=== PATIENT | female | born 1955 | race Caucasian/White ===

== ENCOUNTER → 2018-08-09 08:39 | Outpatient (CLI) | payer OTHER, SELFPAY | PROVIDERS: Family Provider Family Medicine; PCP Family Medicine | DX: Z23 Encounter for immunization (principal) | CPT/HCPCS: 90471; 90686 ==

== ENCOUNTER → 2020-02-17 08:50 | Outpatient (CLI) | payer OTHER, SELFPAY ==
--- NOTE | 2020-02-17 | DI.MRI.S_ITS ---
PROCEDURE: MR LUMBAR SPINE WO CON INDICATIONS: LOW BACK PAIN TECHNIQUE: Noncontrast sagittal T1 spin echo and T2 fast echo, sagittal STIR, axial T1 and T2 fast spin echo through the lumbar spine. In cases with scoliosis, additional coronal T2 fast spin echo may be performed. COMPARISON: None. FINDINGS: Image quality: Excellent. Alignment and Curvature: Trace anterolisthesis of L4 on L5 Bone Marrow: Multilevel degenerative endplate sclerosis and spurring. Diffuse facet arthropathy. No discrete acute vertebral body compression fractures. Marked T2 hyperintensity present within the L1 and L2 vertebral bodies. There is suggestion of large hemangioma within the L1 vertebral body with internal trabeculations for example image 5/5. There is also prominent posterior osseous bridging of the L1 and L2 vertebral bodies, with corticated appearance suggestive of chronic finding. There is ill-defined T2 hyperintensity posterior to the L2 vertebral body, the etiology of which is unknown. Spinal Cord: Conus medullaris terminates at the L1-L2 level. Visualized cord demonstrates normal signal and size. 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 Paraspinous Soft Tissues: No paravertebral masses. Presumed prominent left paravertebral osteophyte formation an ill-defined signal change at the L1-L2 level L1-L2: Severe disc space narrowing, however no definite fluid signal intensity within the disc space. Severe canal stenosis, left greater than right. Complete effacement of the left lateral recess. Right lateral recess appears mildly effaced. Severe narrowing of the left foramen with nerve root compression. Moderate to severe narrowing of the right neural foramen with nerve root compression L2-L3: No high-grade canal stenosis. Moderate left foraminal stenosis with slight nerve root compression. Mild right foraminal narrowing.. L3-L4: No high-grade central canal stenosis. Lateral recesses appear patent. Mild right and left foraminal stenoses L4-L5: Mild canal narrowing. Lateral recess appear grossly patent. Mild bilateral foraminal stenoses L5-S1: No canal stenoses at their lateral recesses appear patent. No foraminal stenosis. IMPRESSION: Prominent L1-L2 disc degeneration with probable paravertebral osteophyte formation, and ossification of the posterior longitudinal ligament. This results in severe canal stenosis. Given the nonenhanced signal characteristics of the disc space and adjacent endplates, infectious or neoplastic etiologies are thought to be less likely however technically indeterminate in the absence of IV contrast. If clinically indicated, further evaluation with contrast-enhanced MRI could be performed. Probable hemangioma is noted within the L1 vertebral body. Severe bilateral L1-L2 foraminal stenoses. Moderate left L2-L3 foraminal stenosis Dictated by: Harshal Bello M.D. on 02/17/2020 at 12:37 Approved by: Harshal Bello M.D. on 02/17/2020 at 13:01
== END ==
PROVIDERS: Family Provider Family Medicine; PCP Family Medicine; Referring Provider Family Medicine; Visit Provider Family Medicine
DX: M54.5 Low back pain (principal); M51.36 Other intervertebral disc degeneration, lumbar region; M48.061 Spinal stenosis, lumbar region without neurogenic claudication
CPT/HCPCS: 72148

== ENCOUNTER 2020-02-18 14:11 | Inpatient (IN) | payer OTHER, SELFPAY ==
[2020-02-18 14:55] VITALS: BP 121/73; PULSE 97; RESP 16; TEMP 36.6; O2SAT 96
[2020-02-18 15:33] VITALS: BMI 24.0
[2020-02-18 15:52] LABS: Alanine Aminotransferase 38 IU/L (<35); Albumin 3.8 g/dL (3.5-5.0); Alkaline Phosphatase 102 U/L (38-126); Aspartate Aminotransferase 66 IU/L (14-36); BUN Creatinine Ratio 12.1 (6-22); Bilirubin Total 0.4 mg/dL (0.2-1.3); Blood Urea Nitrogen 8 mg/dL (7-17); Calcium 8.5 mg/dL (8.4-10.2); Carbon Dioxide 24 mmol/L (22-32); Chloride 89 mmol/L (98-107); Estimated Glomerular Filt Rate > 60.0 mL/min (>60); Glucose 136 mg/dL (80-110); HEMOLYSIS < 15 (0-50); Hematocrit 28.1 % (36-46); Hemoglobin 9.5 g/dL (12.0-16.0); Mean Corpuscular HGB Conc 33.9 % (30-36); Mean Corpuscular Hemoglobin 28.4 PG (26-34); Mean Corpuscular Volume 83.8 fL (80-100); Platelet Count 407 X10^3/uL (150-400); Potassium 3.6 mmol/L (3.4-5.1); Red Blood Cell Count 3.36 X10^6/uL (4.0-5.2); Red Cell Distribution Width 14.9 % (11.6-14.8); Sodium 128 mmol/L (137-145); Total Protein 7.8 g/dL (6.3-8.2); White Blood Cell Count 14.4 X10^3/uL (4.5-11.0)
[2020-02-18 15:55] LABS: Add Manual Diff / Slide Review YES
[2020-02-18 16:16] LABS: Neutrophils Absolute Manual 12816 /uL (3000-5900); RBC Morphology Normal Morphology; Total Cells Counted 100
[2020-02-18 16:17] LABS: Toxic Vacuolation Present
--- NOTE | 2020-02-18 16:23 | PC.NURSE ---
Pt direct admit for Dr. Escoto w/ back pain Pt A/O x 3. No SOB Pt states discomfort is lower right back - hip spasm like. HL (24g) inserted into the right wrist area w/o incidence. Pt oriented to room & call system. Call light w/in reach. Pt goes from bed -chair independently for comfort.
[2020-02-18] MEDS: CEFTRIAXONE 2 GM/50 ML FROZ.PIGGY IV (17:21)
--- NOTE | 2020-02-18 17:35 | PM.HP.1 ---
History of Present Illness History of Present Illness Date Patient Seen: 02/18/20 Time Patient Seen: 17:35 Date of Onset of Symptoms: 12/24/19 Chief complaint: epidural abscess,multiple myeloma Narrative: Patient is a 65-year-old white female who has been a longstanding patient of mine who presents with increasing back pain fever chills and history of elevated white count. Patient began having back pain and early December. She was seen for fever and placed on Levaquin. Patient had been actually doing quite well she was seen in mid December for recurrence symptoms still had back pain. Her back pain was always on the mid to left side. Seemed to be in SI joint. It been treated for that. No imaging was done. Patient was placed on Levaquin again for 2 weeks despite the fact that no source was noted by me. She had complete resolution of symptoms except for back pain. No fevers no chills or white count had decreased from 14-1926 and had remained in that position for 3 weeks. She had otherwise felt well. But was having continued back pain. She never had any weakness numbness or other change. All the pain was located in her left lateral hip with some radiation into the midline. She had no radiation to her buttocks. Pain seemed to be worse at night. Depending on which she do an it her daytime. She was unable to actually move except to log roll in the bed. During the day she seemed to be better. She had no numbness tingling no change in her bowels movements. No urinary issues. She otherwise had no changes she had went until recently was continuing to have back pain x-ray was negative and she had an MRI which showed a epidural L1 abscess. She was starting to have increasing fevers and was otherwise in moderate discomfort sometimes severe at night and it was elected to bring her into the hospital. Patient otherwise had no other significant changes Patient has had no cough or runny nose. She has had no shortness of breath no chest pain no headaches no visual symptoms. No ear pain. She has not had any abdominal pain. Although her appetite has been slightly decreased. No painful urination. No diarrhea. She otherwise is felt pretty well up until the last 2 days. Fever has been up to 102. Past medical history is significant for: History of hyponatremia Multiple myeloma Depression Vitamin B12 deficiency Migraine Hyperlipidemia Malignant neoplasm left breast 2016 History of anemia Past surgical history left stapedectomy 1989, left lumpectomy 2015 for breast cancer Family history: Father with heart disease is hypertension and COPD, mother depression and multiple myeloma, sister 54 breast cancer, Social history to Don. Children are supportive. 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 Habits: Never tobacco occasional alcohol Patient History Family & Social History Social History: household members spouse Prior Living Arrangements House Safety & Behavioral: Feels Safe in Current Yes Environment Been Physically Hurt or No Threatened By a Person Suicidal Ideation Description None Suicide Plan Description No Plan Tobacco & Substance use: Smoking Status Never smoker alcohol intake frequency holiday/special occasion Substance Use Type does not use Meds Home Medications and Allergies Home Medications Medication Instructions Recorded Confirmed Type bupropion HCl [Wellbutrin SR] 150 mg PO QDAY #0 02/16/12 02/18/20 History citalopram 20 mg PO QDAY #0 02/16/12 02/18/20 History [PROBIOTIC] 1 cap PO BID #0 02/04/17 02/18/20 History [VIT B/C/FOLIC ACID] 1 tab PO DAILY #0 02/04/17 02/18/20 History anastrozole 1 mg PO QDAY #0 02/04/17 02/18/20 History calcium citrate-vitamin D3 1 tab PO DAILY #0 02/04/17 02/18/20 History cholecalciferol (vitamin D3) 2,000 unit PO DAILY #0 02/04/17 02/18/20 History [Vitamin D3] cyanocobalamin (vitamin B-12) 1,000 mcg SUBCUT DAILY #0 02/04/17 02/18/20 History vitamin E 400 unit PO DAILY #0 02/04/17 02/18/20 History Allergies Allergy/AdvReac Type Severity Reaction Status Date / Time amoxicillin [AMOXICILLIN] Allergy Unknown Unverified 01/31/18 13:05 azithromycin [AZITHROMYCIN] Allergy Unknown Unverified 01/31/18 13:05 clarithromycin Allergy Unknown Unverified 01/31/18 13:05 [CLARITHROMYCIN] cyclobenzaprine Allergy Unknown Unverified 01/31/18 13:05 [From FLEXERIL] erythromycin base Allergy Unknown Unverified 01/31/18 13:05 [ERYTHROMYCIN BASE] etodolac [From LODINE] Allergy Unknown Unverified 01/31/18 13:05 Sulfa (Sulfonamide Allergy Unknown Unverified 01/31/18 13:05 Antibiotics) Review of Systems Review of Systems ROS: Yes All systems reviewed with the patient and are negative except as otherwise documented Exam Vital Signs (past 8 hours): - 02/18/20 14:55 Temperature 97.8 F Pulse Rate 97 H Respiratory Rate 16 Blood Pressure 121/73 Pulse Oximetry 96 Oxygen Flow Rate 0 Narrative Exam Narrative: Alert female lying in bed in mild distress with movement. Mucous membranes mildly dry. Eyes unremarkable. Oral mucosa no lesions. Neck is supple without adenopathy. No supraclavicular adenopathy. No JVD bruits or thyromegaly. Lungs are clear. Heart regular rate and rhythm. Abdomen is soft positive bowel sounds nontender. Back shows tenderness really an SI joint with pain LT 1 L2 shows no crepitus or step-off. No erythema. No swelling. Hips move normally bilaterally. Rest the lower extremities are normal normal pulses. Capillary refill is good. Neurologic exam sugars cranial nerves 2-12 are intact. Motor is 5/5 except for pain. Reflexes are 2+ and symmetric. She has smiling and interactive. Objective Labs Result Diagrams: 02/18/20 15:20 02/18/20 15:20 Labs: Laboratory Results - last 24 hr 02/18/20 02/18/20 15:20 15:20 WBC 14.4 H RBC 3.36 L Hgb 9.5 L Hct 28.1 L MCV 83.8 MCH 28.4 MCHC 33.9 RDW 14.9 H Plt Count 407 H Neut % (Auto) Not Reportable Lymph % (Auto) Not Reportable [place] % (Auto) Not Reportable Eos % (Auto) Not Reportable Baso % (Auto) Not Reportable Lymph # (Auto) Not Reportable [place] # (Auto) Not Reportable Baso # (Auto) Not Reportable Total Counted 100 Seg Neutrophils % 84.0 H Band Neutrophils % 5.0 Lymphocytes % (Manual) 2.0 L Atypical Lymphs % 1.0 H Monocytes % (Manual) 8.0 Neutrophils # (Manual) 52053 H Toxic Vacuolation Present H RBC Morphology Normal morphology Sodium 128 L Potassium 3.6 Chloride 89 L Carbon Dioxide 24 BUN 8 Creatinine 0.66 Estimated GFR > 60.0 BUN/Creatinine Ratio 12.1 Glucose 136 H Calcium 8.5 Total Bilirubin 0.4 AST 66 H ALT 38 H Alkaline Phosphatase 102 Total Protein 7.8 Albumin 3.8 Globulin 4.0 Albumin/Globulin Ratio 1.0 Assessment & Plan Assessment & Plan narrative: Epidural abscess L1/L2. Have reviewed case with radiologist. Discussed with Dr. Allison neuro surgeon. Recommendations for 6 weeks of IV antibiotics. Will start today with Vanco and Rocephin. Hopefully we will obtain a causative organism with the blood cultures that withdrawn. Discussed case with neurosurgeon he did not believe there was an accessible abscess area which could be done through Interventional Radiology. Will have to see how things go. Will need PICC line. Will order that tomorrow. Repeat CBC tomorrow. Long discussion with patient. Only 8 operational intervention would occur if we have some type of neurologic change which at this point we seem to have none. Pain control with oral but will give chance for morphine if needed. Hyponatremia. Patient has a history. Will gently hydrate and see how she does. Repeat tomorrow. Multiple myeloma. Appears stable. Has been in a good position. Has not been on treatment will see how things go. As per oncologist as outpatient. Anemia. Has been felt secondary to her multiple myeloma. Is not new nor worsening. Will follow. History of breast cancer. Stable. Depression. Has been stable. Will you Sir usual medicine. Code status full code. DVT prophylaxis Lovenox. Could be potential high risk secondary to her pain. What to see how quickly she responds. GI prophylaxis. I think will be stable. Will follow. Disposition. Will need probably 2-3 days of IV antibiotics in the hospital lab to see how things go. Will begin prep for discharge with home health but I am hoping we will get an appropriate organism that we can treat. Would be easier if we could adjust medications for a specific treatment. Vancomycin will not be doable long-term. If no organism will discuss with infectious disease. Quality VTE Deep Vein Thrombosis/Pulmonary Embolism Present on Admission: No
[2020-02-18] MEDS: ACETAMINOPHEN 325 MG TABLET 650 MG PO (18:34)
[2020-02-18] MEDS: OXYCODONE IR 5 MG TABLET PO (18:35)
[2020-02-18] MEDS: SODIUM CHLORIDE 0.9% 1,000 ML 75 ML IV (18:42)
[2020-02-18] MEDS: VANCOMYCIN 750 MG/150 ML FROZ.PIGGY 100 MG IV (18:42)
[2020-02-18 20:00] VITALS: BP 112/64; PULSE 96; RESP 24; TEMP 38.2
[2020-02-18 22:24] VITALS: BP 112/64; PULSE 96
[2020-02-18] MEDS: PROCHLORPERAZINE 10 MG/2 ML VIAL 5 MG IV (22:24)
[2020-02-18 23:00] VITALS: O2SAT 98
[2020-02-18 23:06] VITALS: TEMP 38.2
[2020-02-19] VITALS (9 sets, daily range): BP systolic 116–149; BP diastolic 65–76; PULSE 78–105; RESP 16–20; TEMP 36.7–39.5; O2SAT 93–100
[2020-02-19] MEDS: VANCOMYCIN 750 MG/150 ML FROZ.PIGGY 100 MG IV ×2 (01:23→18:34)
[2020-02-19] MEDS: ACETAMINOPHEN 325 MG TABLET 650 MG PO ×4 (01:24→23:32)
[2020-02-19] MEDS: OXYCODONE IR 5 MG TABLET PO ×4 (01:25→19:02)
[2020-02-19] MEDS: CEFTRIAXONE 2 GM/50 ML FROZ.PIGGY IV ×2 (03:55→15:50)
[2020-02-19 06:17] LABS: Add Manual Diff / Slide Review NO; Basophils Absolute Auto 0 /uL (0-100); Basophils Percent Auto 0.3 % (0-2); Eosinophils Absolute Auto 0 /uL (0-450); Hematocrit 26.4 % (36-46); Hemoglobin 8.9 g/dL (12.0-16.0); Lymphocytes Absolute Auto 800 /uL (1100-4500); Mean Corpuscular HGB Conc 33.7 % (30-36); Mean Corpuscular Hemoglobin 28.1 PG (26-34); Mean Corpuscular Volume 83.5 fL (80-100); Monocytes Absolute Auto 1300 /uL (0-900); Monocytes Percent Auto 9.7 % (3-14); Neutrophils Absolute Auto 11600 /uL (1500-7000); Platelet Count 354 X10^3/uL (150-400); Red Blood Cell Count 3.16 X10^6/uL (4.0-5.2); Red Cell Distribution Width 14.7 % (11.6-14.8); White Blood Cell Count 13.8 X10^3/uL (4.5-11.0)
[2020-02-19 06:26] LABS: Blood Urea Nitrogen 6 mg/dL (7-17); Calcium 7.8 mg/dL (8.4-10.2); Carbon Dioxide 25 mmol/L (22-32); Chloride 90 mmol/L (98-107); Estimated Glomerular Filt Rate > 60.0 mL/min (>60); Glucose 146 mg/dL (80-110); HEMOLYSIS < 15 (0-50); Potassium 3.9 mmol/L (3.4-5.1); Sodium 124 mmol/L (137-145)
[2020-02-19 08:51] LABS: Acinetobacter baumannii Not Detected (Not Detect); Candida albicans Not Detected (Not Detect); Candida glabrata Not Detected (Not Detect); Candida krusei Not Detected (Not Detect); Candida parapsilosis Not Detected (Not Detect); Candida tropicalis Not Detected (Not Detect); E. coli Not Detected (Not Detect); Enterobacter cloacae complex Not Detected (Not Detect); Enterobacteriaceae species Not Detected (Not Detect); Enterococcus species Not Detected (Not Detect); Haemophilus influenzae Not Detected (Not Detect); Listeria monocytogenes Not Detected (Not Detect); Methicillin-resistant gene Detected (Not Detect); Neisseria meningitidis Not Detected (Not Detect); Proteus species Not Detected (Not Detect); Pseudomonas aeruginosa Not Detected (Not Detect); Serratia marcescens Not Detected (Not Detect); Staphylococcus species Detected (Not Detect); Streptococcus agalactiae (Gr B Not Detected (Not Detect); Streptococcus pneumonia Not Detected (Not Detect); Streptococcus pyogenes (Gr A) Not Detected (Not Detect); Streptococcus species Not Detected (Not Detect)
--- NOTE | 2020-02-19 09:03 | PM.PN.1 ---
Subjective Subjective Date Patient Seen: 02/19/20 Time Patient Seen: 09:03 Interval history: Patient feeling better. Less pain this morning. Did have a fever low grade last night. Moving easier this morning. No numbness or tingling. No weakness. No other changes. Patient has been pushing fluids because she has not had much of an appetite. Otherwise no change. Exam Vital Signs (past 8 hours): - 02/19/20 04:00 Temperature 98.9 F Pulse Rate 105 H Respiratory Rate 18 Blood Pressure 121/72 Pulse Oximetry 97 Oxygen Delivery Method Room Air Oxygen Flow Rate 0 Narrative Exam Narrative: Alert female much less fatigued in no acute distress. Lungs are clear. Heart regular rate and rhythm. Abdomen is soft positive bowel sounds nontender. Back shows maybe some slight improve tenderness but really no change. Neurologic exam continues to be normal. Objective Labs Result Diagrams: 02/19/20 05:55 02/19/20 05:55 Labs: Laboratory Results - last 24 hr 02/18/20 02/18/20 02/18/20 15:20 15:20 15:20 WBC 14.4 H RBC 3.36 L Hgb 9.5 L Hct 28.1 L MCV 83.8 MCH 28.4 MCHC 33.9 RDW 14.9 H Plt Count 407 H Neut % (Auto) Not Reportable Lymph % (Auto) Not Reportable [place] % (Auto) Not Reportable Eos % (Auto) Not Reportable Baso % (Auto) Not Reportable Neut # (Auto) Lymph # (Auto) Not Reportable [place] # (Auto) Not Reportable Eos # (Auto) Baso # (Auto) Not Reportable Total Counted 100 Seg Neutrophils % 84.0 H Band Neutrophils % 5.0 Lymphocytes % (Manual) 2.0 L Atypical Lymphs % 1.0 H Monocytes % (Manual) 8.0 Neutrophils # (Manual) 09623 H Toxic Vacuolation Present H RBC Morphology Normal morphology Sodium 128 L Potassium 3.6 Chloride 89 L Carbon Dioxide 24 BUN 8 Creatinine 0.66 Estimated GFR > 60.0 BUN/Creatinine Ratio 12.1 Glucose 136 H Calcium 8.5 Total Bilirubin 0.4 AST 66 H ALT 38 H Alkaline Phosphatase 102 Total Protein 7.8 Albumin 3.8 Globulin 4.0 Albumin/Globulin Ratio 1.0 A. baumannii (PCR) Not detected Clementine albicans (PCR) Not detected C. glabrata (PCR) Not detected C. krusei (PCR) Not detected C. parapsilosis (PCR) Not detected C. tropicalis (PCR) Not detected Enterobacteriac sp PCR Not detected E. cloacae complex PCR Not detected Enterococcus sp PCR Not detected E. coli (PCR) Not detected H. influenzae (PCR) Not detected Klebsiella oxytoca PCR Not detected Klebsiella pneumoniae Not detected List. monocytogenes PCR Not detected N. meningitidis (PCR) Not detected Proteus species (PCR) Not detected Serratia marcescens PCR Not detected Staphylococcus sp PCR Detected H Staph aureus (PCR) Detected H mecA-Methicil Res Gene Detected H Streptococcus sp PCR Not detected Group A Strep (PCR) Not detected Strep agalactiae (PCR) Not detected Strep pneumoniae (PCR) Not detected P. aeruginosa (PCR) Not detected Abdirashid/B-Vanco Res Genes Not Reportable KPC-Carbap Res Gene PCR Not Reportable 02/19/20 02/19/20 05:55 05:55 WBC 13.8 H RBC 3.16 L Hgb 8.9 L Hct 26.4 L MCV 83.5 MCH 28.1 MCHC 33.7 RDW 14.7 Plt Count 354 Neut % (Auto) 84.0 H Lymph % (Auto) 6.0 L [place] % (Auto) 9.7 Eos % (Auto) 0.0 L Baso % (Auto) 0.3 Neut # (Auto) 93169 H Lymph # (Auto) 800 L [place] # (Auto) 1300 H Eos # (Auto) 0 Baso # (Auto) 0 Total Counted Seg Neutrophils % Band Neutrophils % Lymphocytes % (Manual) Atypical Lymphs % Monocytes % (Manual) Neutrophils # (Manual) Toxic Vacuolation RBC Morphology Sodium 124 L Potassium 3.9 Chloride 90 L Carbon Dioxide 25 BUN 6 L Creatinine 0.60 Estimated GFR > 60.0 BUN/Creatinine Ratio 10.0 Glucose 146 H Calcium 7.8 L Total Bilirubin AST ALT Alkaline Phosphatase Total Protein Albumin Globulin Albumin/Globulin Ratio A. baumannii (PCR) Clementine albicans (PCR) C. glabrata (PCR) C. krusei (PCR) C. parapsilosis (PCR) C. tropicalis (PCR) Enterobacteriac sp PCR E. cloacae complex PCR Enterococcus sp PCR E. coli (PCR) H. influenzae (PCR) Klebsiella oxytoca PCR Klebsiella pneumoniae List. monocytogenes PCR N. meningitidis (PCR) Proteus species (PCR) Serratia marcescens PCR Staphylococcus sp PCR Staph aureus (PCR) mecA-Methicil Res Gene Streptococcus sp PCR Group A Strep (PCR) Strep agalactiae (PCR) Strep pneumoniae (PCR) P. aeruginosa (PCR) Abdirashid/B-Vanco Res Genes KPC-Carbap Res Gene PCR Assessment & Plan Assessment & Plan narrative: Epidural abscess. 2/2 blood cultures positive for MRSA. Will continue on current antibiotics. Hopefully will get back sensitivities tomorrow. May be able to adjust medication. Will have to be on longstanding treatment IV which we are D new. Interesting that got better with Levaquin during the previous experience and treatment course. At this point will order PICC line. Will continue antibiotics. CBC in a.m.. Clinically improved today. Discussed with patient she understands will call change. Hyponatremia slightly worsened today. Will continue IV fluids probably secondary to infection. Will place on fluid restriction and follow from there. Recheck a.m.. Decreased calcium. Will replace today recheck tomorrow. Multiple myeloma. Stable. No change at this time. Anemia. Slightly decreased but probably secondary to fluid rehydration. Will follow. History of breast cancer stable. Depression. Stable. No change in medication. Code status full. DVT prophylaxis Lovenox continued. GI prophylaxis no evidence that we need to treat at this time. Disposition. Discussed with senior program planner. Will need outpatient antibiotics. Hopefully we can get to an antibiotic that is not more than once or twice a day. Will have to see how things go. Hopefully sensitivities will come back tomorrow. Will begin physical therapy maybe tomorrow get her up moving around but I am going to hold off on that today. Patient understands questions answered hopefully will get discharged soon. But do not expect until at least Monday at the earliest Quality VTE Deep Vein Thrombosis/Pulmonary Embolism Present on Admission: No
[2020-02-19] MEDS: ACYCLOVIR 400 MG TABLET PO (09:30)
[2020-02-19] MEDS: buPROPion SR 150 MG TAB PO (09:30)
[2020-02-19] MEDS: ANASTROZOLE 1 MG TABLET PO (09:31)
[2020-02-19] MEDS: CITALOPRAM 10 MG TABLET PO (09:32)
[2020-02-19] MEDS: ENOXAPARIN 40 MG/0.4 ML SYRINGE SUBCUT (09:32)
[2020-02-19] MEDS: CALCIUM GLUCONATE 9.3 MEQ in SODIUM CHLORIDE 0.9% 50 ML 140 ML IV (10:06)
[2020-02-19] MEDS: VANCOMYCIN 750 MG/150 ML FROZ.PIGGY 150 MG IV (11:27)
--- NOTE | 2020-02-19 11:48 | PC.NURSE ---
Patient requested a pain medication around 0700 with some tylenol. This has helped patient with her lower back pain. She is up in the room with sba, bed alarm not on as patient asked if this could be off during the day, she has been calling appropriately. into see patient and he has put patient on a fluid restriction of 1500cc over 24 hours. Calcium rider just infused and patient is sitting up in chair, she also had a shower.
--- NOTE | 2020-02-19 12:27 | CM.DANOTE ---
Patient is a 65 year old female who was admitted on 02/18/20 for Epidural abscess. Pt has [employer] for insurance and her PCP is Dr. Ari Magallanes. EMR was reviewed. Per MD, pt with MRSA positive results and epidural abscess and will need to d/c on group home IV-Abx and having PICC placed today. Cultures pending to confirm final Abx, dose, and frequency. PT to likely be ordered tomorrow to confirm pt safe for d/c home at discharge. 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 Pt denies any hx of HH or SNF or home infusion. SW discussed possible options for IV-Abx at d/c pending cultures and frequency needed including SNF, outpt infusion clinic, , home infusion. Pt states her spouse is home and willing to assist and she will discuss with him further to determine likely home infusion option. Pt agreeable with SW making referral to [facility] to confirm her insurance coverage and aware that culture results needed to finalize. SW faxed referral to [facility] to review and run her insurance to determine any out of pocket expense. SW called Issa at [facility] and left [facility] requesting review and to run her insurance. Possible need for HH RN pending pt's insurance coverage for home infusion. Plan: SW to follow closely for [facility] review vs outpt infusion clinic pending culture results and frequency of dosing. PICC to be placed today. ELDA Frances Discharge Planning/Care Management CM Discharge Assessment Start: 02/19/20 12:24 Freq: Status: Active Protocol: Document 02/19/20 12:24 BF (Rec: 02/19/20 12:27 BF [id number]) Discharge Planning Assessment Assigned Dictaphone Typist ELDA Hancock DPOA/Assigned Designee Name Spouse Deny Contact Information [phone] Advance Directives? No History Provided By Patient,Medical Record Has Patient been admitted in last 30 No days? Prior Living Arrangements House Household Members spouse Type of transporation used prior to Drives own vehicle admit Independent with ADL's Yes Is patient alert and oriented? Yes Caregiver for Another No Patient/Family Preference Home with Home Health Barriers to Discharge No Discharge Plan Home with Home Health Community [facility] Home Health Nurse,IV Therapy Transportation Arrangement Spouse available to provide transport at d/c. Referrals Initiated Other Additional Comment Home infusion Review Status In Process Please Provide Date Initial DC 02/19/20 Assessment Was Performed Next Review Type Continued Stay Review
[2020-02-19] MEDS: VANCOMYCIN TROUGH 1 REQUEST MISC (17:30)
[2020-02-19 18:10] LABS: Vancomycin Trough 7.1 ug/mL (10-20)
[2020-02-20] VITALS (11 sets, daily range): BP systolic 116–135; BP diastolic 66–86; PULSE 86–97; RESP 16–18; TEMP 37.1–38.8; O2SAT 97–99
[2020-02-20] MEDS: OXYCODONE IR 5 MG TABLET PO ×4 (01:05→21:53)
[2020-02-20] MEDS: VANCOMYCIN 1,000 MG/200 ML PIGGYBACK 200 MG IV ×3 (02:10→18:02)
[2020-02-20] MEDS: CEFTRIAXONE 2 GM/50 ML FROZ.PIGGY IV ×2 (04:08→16:09)
[2020-02-20] MEDS: ACETAMINOPHEN 325 MG TABLET 650 MG PO ×3 (05:39→18:02)
[2020-02-20 06:36] LABS: Alanine Aminotransferase 80 IU/L (<35); Albumin 3.4 g/dL (3.5-5.0); Albumin Globulin Ratio 0.9 (1.0-2.8); Alkaline Phosphatase 134 U/L (38-126); Aspartate Aminotransferase 60 IU/L (14-36); BUN Creatinine Ratio 8.9 (6-22); Bilirubin Total 0.3 mg/dL (0.2-1.3); Blood Urea Nitrogen 5 mg/dL (7-17); Calcium 8.3 mg/dL (8.4-10.2); Carbon Dioxide 26 mmol/L (22-32); Chloride 93 mmol/L (98-107); Estimated Glomerular Filt Rate > 60.0 mL/min (>60); Globulin 3.9 g/dL (1.7-4.1); Glucose 115 mg/dL (80-110); HEMOLYSIS < 15 (0-50); Potassium 3.8 mmol/L (3.4-5.1); Sodium 128 mmol/L (137-145); Total Protein 7.3 g/dL (6.3-8.2)
--- NOTE | 2020-02-20 09:32 | DI.RAD.S_ITS ---
PROCEDURE: XR CHEST FOR PICC 1V INDICATIONS: line palcement COMPARISON: [facility], , CHEST 1 VIEW, 02/04/2017, 17:27. FINDINGS: PICC was placed by the intravenous therapy team from the right side. Fluoroscopic spot film demonstrates the tip of PICC projecting to the area of the SVC right atrial junction. No gross pulmonary infiltrates. IMPRESSION: Tip of PICC projects to the area of the SVC right atrial junction. Dictated by: Edy Styles M.D. on 02/20/2020 at 9:59 Approved by: Edy Styles M.D. on 02/20/2020 at 10:00
[2020-02-20] MEDS: ACYCLOVIR 400 MG TABLET PO (10:06)
[2020-02-20] MEDS: buPROPion SR 150 MG TAB PO (10:06)
[2020-02-20] MEDS: ANASTROZOLE 1 MG TABLET PO (10:06)
[2020-02-20] MEDS: ENOXAPARIN 40 MG/0.4 ML SYRINGE SUBCUT (10:07)
[2020-02-20] MEDS: CITALOPRAM 10 MG TABLET PO (10:07)
--- NOTE | 2020-02-20 10:12 | PC.NURSE ---
due to pt isolation no paper consent signed, pt gave verbal consent for picc placement
--- NOTE | 2020-02-20 11:14 | CM.DPC ---
DCP Cont: Called and spoke to Issa at [facility]. He indicated that he spoke to family, and encouraged them to contact their insurance company for benefits. He mentioned that is not concerned about cost. Also stated that the fewer people that they have in the house, the better, so home health may not be a good idea. Dr. Magallanes has not yet been in to see patient, but CXR is completed with PICC information. Faxed it over to [facility]. Infusion sheet is not available showing length. Still pending sensitivities to antibiotic coverage. Faxed CXR over to Issa at [facility], and let him know that patient is continuing with Vanco and Ceftriaxone. P: DCP to continue to follow closely, and will update [facility] as soon as proper antibiotic is identified. Simi Kelly RN/Engineering Operations Leader
--- NOTE | 2020-02-20 11:25 | P.PN_ITS ---
Subjective Subjective Date Patient Seen: 02/20/20 Time Patient Seen: 11:25 Interval history: Patient admitted for epidural abscess with sepsis syndrome. She has been on IV vancomycin for approximately 36 hours. She states that she is overall feeling better and her pain is well controlled. She feels more achy than she did yesterday. She has continued to have a fever but does not always feel poorly when she is having 1. She is urinating normally. It is hard for her to be on the fluid restriction. She had a PICC line placed. She does intermittently have chills. She has pain in her lumbar spine when she gets up from bed. She had a firm stool. She is having postnasal drip and her sinuses are inflamed so she has a headache now. She denies any chest pain or shortness of breath. She denies any lightheadedness or dizziness Exam Vital Signs (past 8 hours): - 02/20/20 04:29 02/20/20 09:00 02/20/20 11:20 Temperature 99.2 F 100.8 F H 101.8 F H Pulse Rate 89 92 H 86 Respiratory Rate 18 18 18 Blood Pressure 116/66 135/70 121/69 Pulse Oximetry 97 97 99 Oxygen Delivery Method Room Air Oxygen Flow Rate 0 Narrative Exam Narrative: T-max 103? otherwise vital signs stable O2 sats upper 90s on room air Patient alert and oriented x3 and quite conversant. In no apparent distress resting comfortably on the hospital bed HEENT: Shows mucous membranes moist and pink Neck: Supple without adenopathy Chest: Clear to auscultation without wheezes rhonchi or crackles Cor: Regular rate and rhythm without murmur Abdomen: Positive bowel sounds, soft, no guarding, no rebound but mild bilateral lower quadrant tenderness Extremities: No edema, pulses intact Skin no rashes Objective Labs Result Diagrams: 02/19/20 05:55 02/20/20 05:50 Labs: Laboratory Results - last 24 hr 02/19/20 02/20/20 17:28 05:50 Sodium 128 L Potassium 3.8 Chloride 93 L Carbon Dioxide 26 BUN 5 L Creatinine 0.56 Estimated GFR > 60.0 BUN/Creatinine Ratio 8.9 Glucose 115 H Calcium 8.3 L Total Bilirubin 0.3 AST 60 H ALT 80 H Alkaline Phosphatase 134 H Total Protein 7.3 Albumin 3.4 L Globulin 3.9 Albumin/Globulin Ratio 0.9 L Vancomycin Trough 7.1 L Assessment & Plan Assessment & Plan narrative: Time which spent with patient and coordination of care was 40 minutes 65-year-old female admitted for epidural abscess with septicemia appear to be im proving Assessment 1. Epidural abscess Plan: Cultures are still pending sensitivity but it looks like MRSA. Pain is well controlled. Will continue with Tylenol and oxycodone. Will continue with IV vancomycin. Will prescribe heating pad. PICC line in place with good placement Assessment 2. Sepsis syndrome related to epidural abscess presumably hemodynamically stable. Plan: Continue on vancomycin. Await sensitivities. Elevated liver function tests suspect secondary to this we will continue to follow. Would expect to see the fever curve decreasing. Assessment 3. Vasomotor rhinitis Plan: Nasal saline. Throat lozenges and she may bring them from home Assessment 4. Elevated liver function tests suspect related to infection Plan: Will continue treating infection Assessment 5. DVT prophylaxis Plan: Continue on Lovenox Assessment 6. Multiple myeloma Assessment 7. Previous breast cancer on Arimidex Quality VTE Deep Vein Thrombosis/Pulmonary Embolism Present on Admission: No
[2020-02-20] MEDS: SODIUM CHLORIDE 0.9% 1,000 ML 75 ML IV (13:12)
[2020-02-20] MEDS: DOCUSATE 100 MG CAPSULE 200 MG PO ×2 (13:46→20:24)
[2020-02-20] MEDS: SODIUM CHLORIDE NASAL SPRAY 1 SPRAY NASAL (13:46)
[2020-02-20] MEDS: CALCIUM CARBONATE 500 MG TAB PO (21:47)
[2020-02-21] VITALS (9 sets, daily range): BP systolic 109–138; BP diastolic 62–77; PULSE 91–93; RESP 16–20; TEMP 36.6–38.6; O2SAT 96–100
[2020-02-21 02:12] LABS: Vancomycin Trough 7.3 ug/mL (10-20)
[2020-02-21] MEDS: VANCOMYCIN 1,000 MG/200 ML PIGGYBACK 200 MG IV ×2 (02:22→09:37)
[2020-02-21] MEDS: VANCOMYCIN TROUGH 1 REQUEST MISC (02:23)
[2020-02-21] MEDS: ACETAMINOPHEN 325 MG TABLET 650 MG PO ×4 (02:23→23:59)
[2020-02-21] MEDS: CEFTRIAXONE 2 GM/50 ML FROZ.PIGGY IV (04:09)
[2020-02-21] MEDS: CALCIUM CARBONATE 500 MG TAB PO (04:13)
[2020-02-21] MEDS: OXYCODONE IR 5 MG TABLET PO ×3 (05:03→20:45)
[2020-02-21] MEDS: SODIUM CHLORIDE 0.9% 1,000 ML 75 ML IV (05:23)
[2020-02-21 05:55] LABS: Add Manual Diff / Slide Review NO; Alanine Aminotransferase 72 IU/L (<35); Albumin 3.1 g/dL (3.5-5.0); Albumin Globulin Ratio 0.8 (1.0-2.8); Alkaline Phosphatase 208 U/L (38-126); Aspartate Aminotransferase 62 IU/L (14-36); BUN Creatinine Ratio 8.3 (6-22); Basophils Absolute Auto 0 /uL (0-100); Basophils Percent Auto 0.4 % (0-2); Bilirubin Total 0.3 mg/dL (0.2-1.3); Blood Urea Nitrogen 4 mg/dL (7-17); Calcium 8.1 mg/dL (8.4-10.2); Carbon Dioxide 23 mmol/L (22-32); Chloride 99 mmol/L (98-107); Eosinophils Absolute Auto 0 /uL (0-450); Eosinophils Percent Auto 0.2 % (2-4); Estimated Glomerular Filt Rate > 60.0 mL/min (>60); Globulin 3.7 g/dL (1.7-4.1); Glucose 122 mg/dL (80-110); HEMOLYSIS < 15 (0-50); Hemoglobin 8.1 g/dL (12.0-16.0); Lymphocytes Absolute Auto 700 /uL (1100-4500); Lymphocytes Percent Auto 10.1 % (25-40); Mean Corpuscular HGB Conc 34.5 % (30-36); Mean Corpuscular Hemoglobin 28.6 PG (26-34); Monocytes Absolute Auto 900 /uL (0-900); Monocytes Percent Auto 13.4 % (3-14); Neutrophils Absolute Auto 5200 /uL (1500-7000); Neutrophils Percent Auto 75.9 % (50-75); Platelet Count 327 X10^3/uL (150-400); Potassium 3.3 mmol/L (3.4-5.1); Red Blood Cell Count 2.84 X10^6/uL (4.0-5.2); Red Cell Distribution Width 15.1 % (11.6-14.8); Sodium 132 mmol/L (137-145); Total Protein 6.8 g/dL (6.3-8.2); White Blood Cell Count 6.9 X10^3/uL (4.5-11.0)
[2020-02-21 05:56] LABS: Hematocrit 23.6 % (36-46)
[2020-02-21] MEDS: LACTOBACILLUS ACIDOPHILUS TABLET 1 EACH PO (08:25)
[2020-02-21] MEDS: ENOXAPARIN 40 MG/0.4 ML SYRINGE SUBCUT (08:25)
[2020-02-21] MEDS: DOCUSATE 100 MG CAPSULE 200 MG PO ×2 (08:26→20:45)
[2020-02-21] MEDS: buPROPion SR 150 MG TAB PO (08:26)
[2020-02-21] MEDS: ACYCLOVIR 400 MG TABLET PO (08:26)
[2020-02-21] MEDS: CITALOPRAM 10 MG TABLET PO (08:26)
[2020-02-21] MEDS: ANASTROZOLE 1 MG TABLET PO (08:26)
--- NOTE | 2020-02-21 08:41 | P.PN_ITS ---
Subjective Subjective Date Patient Seen: 02/21/20 Time Patient Seen: 08:41 Interval history: Patient just feeling weak today. She has had some improvement in her pain. Feels like she is a little more mobile. Had a night where she had continued to have pain. Has continued to have what she feels is fever which was 101 last night. No other changes. Overall fever curve slowly improving. No other significant new change or complaint. She has not had any blood in her stool. She no other changes Exam Vital Signs (past 8 hours): Oxygen Delivery Method Room Air Oxygen Flow Rate 0 Narrative Exam Narrative: Alert smiling female fatigued in appearance mildly anxious in no acute distress. Lungs are clear. Heart regular rate and rhythm. Abdomen is soft positive bowel sounds nontender. No real change in back. Extremities are nontender. Neurologic exam is unchanged. Objective Labs Result Diagrams: 02/21/20 05:10 02/21/20 05:10 Labs: Laboratory Results - last 24 hr 02/21/20 02/21/20 02/21/20 01:35 05:10 05:10 WBC 6.9 RBC 2.84 L Hgb 8.1 L Hct 23.6 L MCV 83.0 MCH 28.6 MCHC 34.5 RDW 15.1 H Plt Count 327 Neut % (Auto) 75.9 H Lymph % (Auto) 10.1 L [place] % (Auto) 13.4 Eos % (Auto) 0.2 L Baso % (Auto) 0.4 Neut # (Auto) 5200 Lymph # (Auto) 700 L [place] # (Auto) 900 Eos # (Auto) 0 Baso # (Auto) 0 Sodium 132 L Potassium 3.3 L Chloride 99 Carbon Dioxide 23 BUN 4 L Creatinine 0.48 L Estimated GFR > 60.0 BUN/Creatinine Ratio 8.3 Glucose 122 H Calcium 8.1 L Total Bilirubin 0.3 AST 62 H ALT 72 H Alkaline Phosphatase 208 H D Total Protein 6.8 Albumin 3.1 L Globulin 3.7 Albumin/Globulin Ratio 0.8 L Vancomycin Trough 7.3 L Assessment & Plan Assessment & Plan narrative: Epidural infection with MRSA. L1 abscess. Patient slowly improving. No other significant change or complaint. Sensitivities are back. Would like to discuss with infectious disease. Will call today. Hopefully can make some adjustments in antibiotics given her sensitivities and re-evaluate after that. Will try Toradol for pain control and physical therapy today Sepsis syndrome. Appears to be stable. Slowly improving. Will follow. Hepatitis. Probably related to infection. But will follow recheck in a.m.. Hypo natremia. Probably secondary to combination of issues but much improved. Will discontinue her fluid restrictions and recheck a.m... Anemia. I suspect this secondary fluid. Will discontinue IV fluids and re- evaluate. Will guaiac stools to be sure. Certainly does not need to be addressed or transfuse at this time. But probable cause of her fatigue. Hypokalemia. Will replace orally re-evaluate a.m.. Multiple myeloma. Stable. Previous best cancer on treatment. DVT prophylaxis on Lovenox GI prophylaxis will continue. Disposition. Unclear when she will be discharged. Will need long-term antibiotics. Hopefully in the next 3 days we will get her discharged. Quality VTE Deep Vein Thrombosis/Pulmonary Embolism Present on Admission: No
--- NOTE | 2020-02-21 11:26 | PT.IIE ---
Current Diagnoses Extradural and subdural abscess, unspecified (02/18/20) Physical Therapy Inpatient Evaluation/Re-Eval M1 PT/OT-IP Prior Functional Status Start: 02/21/20 13:05 Freq: NEEDED Status: Active Protocol: Document 02/21/20 11:26 [facility] (Rec: 02/21/20 13:14 [facility] [id number]) Medical Review Prior Functional Status Medical History Reviewed Yes Diet/Fluid Consistency Regular Communication WNL Mobility and Gait indep without AD Activities of Daily Living and IADL's Indep with ADLs Social History Household Members spouse Living Arrangements House Number of Floors (Floors) Two Floors Number of Stairs To Enter/Railing? 4 stairs with rail to enter Home Environment Standard Height Toilet,Walk in Shower,Tub/Shower M2 PT-IP Current Condition Start: 02/21/20 13:05 Freq: NEEDED Status: Active Protocol: Document 02/21/20 11:26 [facility] (Rec: 02/21/20 13:14 [facility] [id number]) Physical Therapy Current Condition Current Condition Evaluation Date 02/21/20 Treatment Diagnosis sepsis, LBP Weight Bearing Status Weight Bearing Status Full Weight Bearing M3 PT-IP Subjective Start: 02/21/20 13:05 Freq: NEEDED Status: Active Protocol: Document 02/21/20 11:26 [facility] (Rec: 02/21/20 13:14 [facility] [id number]) Subjective Physical Therapy Visit Type Type Initial Evaluation Visit Start Time 10:25 Visit Stop Time 11:26 Total Visit Minutes 61 Number of MACHINE PLUG SHAPER Visits 0 Physical Therapy Visit Comments Patient Goals Dec pain Therapy Pain Assessment Pain When Pain Assessed During Mobility Pain Present Pain Present Pain Reported Location Right Lower Back Intensity 4 Scale Used Numeric (1 - 10) Pain Management Techniques Re-positioning M4 PT-IP Mobility and Gait Start: 02/21/20 13:05 Freq: NEEDED Status: Active Protocol: Document 02/21/20 11:26 [facility] (Rec: 02/21/20 13:14 [facility] [id number]) PT-Bed Mobility Assessment Rolling Type of Rolling Log Rolling,Roll to Left Level of Assist Independent Supine to Sit Supine to Sit Independent Sit to Supine Sit to Supine Independent Scooting Scooting to Edge of Bed Independent Scooting Up and Down in Bed Independent PT-Transfer Assessment Sit to and From Stand Sit to and from Stand Independent Equipment Transfer Assistive Device Gait Belt Orthotic/Prosthetic Devices or Brace: No Transfers Transfer Destination Chair Transfer Technique Stand Step Pivot Transfer Ability Level of Assist Independent Gait Assessment Gait Gait Assistance Required: Standby Assistance Distance (Feet) 40 Able to Maintain Weight Bearing Status Yes During Gait Assistive Devices Assistive Device Gait Belt Gait Deviations General Gait Pattern Within Normal Limits Comments Gait Comments Pt able to mobilize safely in room and demonstrated ability to unplug and plug in IV without difficulty and no LOB PT-Balance Assessment Sitting Balance and Reactions Static Sitting Balance Ability Normal Dynamic Sitting Balance Ability Normal Standing Balance and Reactions Static Standing Balance Ability Normal Dynamic Standing Balance Ability Normal Balance Tests Villanueva Balance Test Score 50/56 Query Text:Score Comments Other Balance Tests/Deviations/Treatment Tinnetti: 28 : M5 PT-IP Objective Assessments Start: 02/21/20 13:05 Freq: NEEDED Status: Active Protocol: Document 02/21/20 11:26 [facility] (Rec: 02/21/20 13:14 [facility] [id number]) Orientation Orientation/Cognition Level of Alertness Alert Language Function Ability No Deficits Noted Safety Awareness Understands Safety Issues Memory Description No Deficits Noted Strength Lower Extremity Strength Assessment Within Functional Limits M6 PT-IP Treatment Start: 02/21/20 13:05 Freq: NEEDED Status: Active Protocol: Document 02/21/20 11:26 [facility] (Rec: 02/21/20 13:14 [facility] [id number]) Physical Therapy Treatment Education Education Provided Safety Other Treatments Other Treatment Performed edu re: positioning in bed and chair; SKTC stretch, piriformis stretch B, DKTC, pelvic tilt, TA contraction M7 PT-IP Assessment and Plan Start: 02/21/20 13:05 Freq: NEEDED Status: Active Protocol: Document 02/21/20 11:26 [facility] (Rec: 02/21/20 13:14 [facility] [id number]) PT Summary Assessment and Plan Potential Rehabilitation Potential Excellent Status of Condition at Evaluation Stable Summary Impairments Pain,Strength Assessment Summary Pt is doing well with all mobility and is made indep in room with [facility] to call if pain very high or feeling lightheaded. She showed low risk fro falls with testing and understands safety concerns. She was educated on gentle exercises to do, getting up frequently to do small bouts of activitiy and on how to position for comfort . Frequency of Treatment Frequency Of Treatment Discharge Treatment Plan Physical Therapy Treatment Plan Therapeutic Exercise Recommendations To Nursing Amount of Assist Needed Independent Discharge Recommendations PT Discharge Recommendations Home,Outpatient PT Other Discharge Recommendations possible OP PT for LB Transportation Needs at Discharge Private Vehicle
--- NOTE | 2020-02-21 16:19 | CM.DPNOTE ---
DCP Cont TC to [facility]; spoke w/Issa- patient's dispo date unknown, sensitivities in, per Dr Magallanes's note, but which fci abx at DC still unknown (?) [facility] poised to coordinate home infusion when we have clarity on items above, w/e DC okay if needed Following closely JW
[2020-02-21] MEDS: POTASSIUM CHLORIDE 20 MEQ TAB 40 MEQ PO (16:27)
[2020-02-21] MEDS: DAPTOmycin 500 MG in SODIUM CHLORIDE 0.9% 50 ML 100 ML IV (18:07)
[2020-02-22] VITALS (7 sets, daily range): BP systolic 134–138; BP diastolic 69–82; PULSE 92; RESP 16–18; TEMP 36.7–37.8; O2SAT 93–98
[2020-02-22] MEDS: OXYCODONE IR 5 MG TABLET PO ×4 (03:15→21:37)
[2020-02-22] MEDS: ACETAMINOPHEN 325 MG TABLET 650 MG PO ×4 (05:34→23:35)
[2020-02-22 05:55] LABS: Add Manual Diff / Slide Review NO; Basophils Absolute Auto 100 /uL (0-100); Basophils Percent Auto 0.9 % (0-2); Eosinophils Absolute Auto 100 /uL (0-450); Eosinophils Percent Auto 1.2 % (2-4); Hematocrit 25.4 % (36-46); Hemoglobin 8.6 g/dL (12.0-16.0); Lymphocytes Absolute Auto 900 /uL (1100-4500); Lymphocytes Percent Auto 11.4 % (25-40); Mean Corpuscular HGB Conc 33.7 % (30-36); Mean Corpuscular Hemoglobin 27.9 PG (26-34); Monocytes Absolute Auto 1000 /uL (0-900); Monocytes Percent Auto 12.1 % (3-14); Neutrophils Absolute Auto 5900 /uL (1500-7000); Neutrophils Percent Auto 74.4 % (50-75); Platelet Count 406 X10^3/uL (150-400); Red Blood Cell Count 3.06 X10^6/uL (4.0-5.2); Red Cell Distribution Width 15.2 % (11.6-14.8)
[2020-02-22 06:00] LABS: Alanine Aminotransferase 74 IU/L (<35); Albumin 3.4 g/dL (3.5-5.0); Albumin Globulin Ratio 0.9 (1.0-2.8); Alkaline Phosphatase 221 U/L (38-126); Aspartate Aminotransferase 59 IU/L (14-36); Bilirubin Total 0.4 mg/dL (0.2-1.3); Blood Urea Nitrogen 3 mg/dL (7-17); Calcium 8.6 mg/dL (8.4-10.2); Carbon Dioxide 25 mmol/L (22-32); Chloride 96 mmol/L (98-107); Estimated Glomerular Filt Rate > 60.0 mL/min (>60); Globulin 3.9 g/dL (1.7-4.1); Glucose 110 mg/dL (80-110); HEMOLYSIS < 15 (0-50); Potassium 3.6 mmol/L (3.4-5.1); Sodium 130 mmol/L (137-145); Total Protein 7.3 g/dL (6.3-8.2)
[2020-02-22] MEDS: ENOXAPARIN 40 MG/0.4 ML SYRINGE SUBCUT (08:15)
[2020-02-22] MEDS: LACTOBACILLUS ACIDOPHILUS TABLET 1 EACH PO (08:16)
[2020-02-22] MEDS: DOCUSATE 100 MG CAPSULE 200 MG PO ×2 (08:16→21:37)
[2020-02-22] MEDS: POTASSIUM CHLORIDE 20 MEQ TAB 40 MEQ PO (08:16)
[2020-02-22] MEDS: ANASTROZOLE 1 MG TABLET PO (08:16)
[2020-02-22] MEDS: CITALOPRAM 10 MG TABLET PO (08:16)
[2020-02-22] MEDS: ACYCLOVIR 400 MG TABLET PO (08:16)
[2020-02-22] MEDS: buPROPion SR 150 MG TAB PO (08:16)
--- NOTE | 2020-02-22 11:51 | P.PN_ITS ---
Subjective Subjective Date Patient Seen: 02/22/20 Time Patient Seen: 11:51 Interval history: Patient actually feeling a little bit better today. Fever curve is slowly improving. Slept well for the 1st time last night. Pain is still present no radiation. Legs feel a little better. She actually states she feels better since they switched off of the vancomycin. She has no other significant changes or complaints. Little bit of on a abdominal discomfort but no change in bowel movements. She has noted no black or tarry stools. No blood that she has noted. No nausea or vomiting. Exam Vital Signs (past 8 hours): - 02/22/20 06:00 02/22/20 06:16 02/22/20 08:00 Temperature 100 F H 100.0 F H 99.0 F Pulse Rate 92 H Respiratory Rate 16 Blood Pressure 134/82 Pulse Oximetry 98 Oxygen Delivery Method Room Air Oxygen Flow Rate 0 Narrative Exam Narrative: Alert smiling female in no acute distress moving around the room. Still somewhat stiff but more freely than she was admission. Mucous membranes moist. Neck supple without adenopathy. Lungs are clear. He art regular rate and rhythm. Abdomen is soft positive bowel sounds nontender she has some slight tenderness in the SI joint maybe slightly higher and then to the midline. But much improved from my 1st exam. No other changes. Extremity without cyanosis clubbing edema. Neurologic exam continues to be normal. Objective Labs Result Diagrams: 02/22/20 05:12 02/22/20 05:12 Labs: Laboratory Results - last 24 hr 02/22/20 02/22/20 05:12 05:12 WBC 8.0 RBC 3.06 L Hgb 8.6 L Hct 25.4 L MCV 83.0 MCH 27.9 MCHC 33.7 RDW 15.2 H Plt Count 406 H Neut % (Auto) 74.4 Lymph % (Auto) 11.4 L [place] % (Auto) 12.1 Eos % (Auto) 1.2 L Baso % (Auto) 0.9 Neut # (Auto) 5900 Lymph # (Auto) 900 L [place] # (Auto) 1000 H Eos # (Auto) 100 Baso # (Auto) 100 Sodium 130 L Potassium 3.6 Chloride 96 L Carbon Dioxide 25 BUN 3 L Creatinine 0.43 L Estimated GFR > 60.0 BUN/Creatinine Ratio 7.0 Glucose 110 Calcium 8.6 Total Bilirubin 0.4 AST 59 H ALT 74 H Alkaline Phosphatase 221 H Total Protein 7.3 Albumin 3.4 L Globulin 3.9 Albumin/Globulin Ratio 0.9 L Assessment & Plan Assessment & Plan narrative: Epidural L1 abscess. MRSA positive. Continues to slowly improve. Her fever curve appears to be resolving. But still had 100.8 yesterday. Will slowly need to be following. Discussed with Infectious Disease who recommends daptomycin. Outpatient for 6 weeks. Have previously discussed with neurosurgeons no surgical intervention will be required. Infectious disease also recommended blood cultures through her PICC line and arm to make sure nothing has been large stone PICC line. Otherwise she seems to be slowly improving. Will follow and re-evaluate in a.m.. White count continues to be normal. Sepsis syndrome peers to be stable. Slowly improving will follow. Anemia. I think the vast majority was fluid but will have to watch and see. Will check basic iron and B12 and folate labs to make sure. Recheck guaiac period and follow from there. Certainly has some impact on her fatigue. Hypokalemia. Improved. Will drop to 1 potassium a day and then recheck tomorrow discontinue if possible. Hyponatremia. Slight decreased with change. May need to go back to fluid restrictions but will see what tomorrow develops period almost surely secondary to her infection. Hepatitis. Alk-phos is slightly elevated. It has been assumed this is secondary to her infection and her sepsis syndrome but will have to see. If still at increased tomorrow will obtain ultrasound of before discharge. Multiple myeloma stable. Previous breast cancer on treatment DV T prophylaxis on Lovenox. GI prophylaxis not high risk at this time. Disposition. At this point will get approval for daptomycin for home. Certainly best option. She seems to be slowly improving. Will need to follow- up other issues over the next 24 hours. Anticipate best case discharge on Monday with home infusion. Discussed with her she understands with cough change. Quality VTE Deep Vein Thrombosis/Pulmonary Embolism Present on Admission: No
--- NOTE | 2020-02-22 14:07 | PC.NURSE ---
Assess- Patient complained of pain and given percolone and tylenol, which has seemed to help her discomfort. She is up in her room independently and doing well. She is on iv antibiotics and per Dr. Esocto may go home on Monday with antibiotics. Patient has a picc line in her r.upper arm.
--- NOTE | 2020-02-22 15:48 | CM.DPNOTE ---
DCP Cont According to Dr Magallanes; ID has been consulted and recommendation is IV Dapto Q24 500mg (currently on this dosing) x6 weeks. PICC already in place, DC expected Monday Updated Jethro at [facility] and faxed updated prog note and med list, he explained that patient would need to contact her [email or web address] coverage at P# [phone], likely Monday, to get quote on coverage for home infusion of IV Dapto This [employer]CHIATRY INSTRUCTOR unable to meet w/patient today, although Dr Magallanes relays that home w/home infusion is patient's first choice, but if it is too financially burdensome, she may have to consider daily infusion at the cancer care center DC planning team following closely, need to review DCP w/ patient ELDA Gan
[2020-02-22] MEDS: DAPTOmycin 500 MG in SODIUM CHLORIDE 0.9% 50 ML 100 ML IV (17:47)
[2020-02-23] VITALS (10 sets, daily range): BP systolic 129–146; BP diastolic 66–85; PULSE 87–93; RESP 16–18; TEMP 36.6–37.8; O2SAT 97–100
--- NOTE | 2020-02-23 | DI.US.S_ITS ---
PROCEDURE: US ABDOMEN COMPLETE INDICATIONS: ELEVATED LFTS TECHNIQUE: Real-time scanning was performed of the abdominal and retroperitoneal organs, with image documentation. COMPARISON: [facility], MR, MR LUMBAR SPINE WO CON, 02/17/2020, 9:01. [facility], US, RENAL OR RETROPERITONEAL LIMIT, 06/22/2012, 13:01. FINDINGS: Liver: Liver is normal in size. There is a 1.1 cm echogenic mass seen within the left lobe of the liver. Gallbladder: Removed. Biliary ducts: Intrahepatic bile ducts are non-dilated. Extrahepatic bile duct caliber measures 8 mm. Normal is 6-7 mm or less in diameter, or 10 mm or less post-cholecystectomy. Pancreas: Visualized portions of the pancreas are sonographically normal. Spleen: Spleen is normal in size and homogeneous in echotexture. Kidneys: Kidneys are normal in size and echotexture. Right kidney measures 12.8 cm long; left kidney measures 11.2 cm long. No hydronephrosis or nephrolithiasis. No solid masses. Aorta: Visualized aorta is normal in caliber at less than 3 cm. Iliacs: Proximal common iliac arteries are normal in caliber at less than 2.5 cm. IVC: Intrahepatic inferior vena cava is patent. Miscellaneous: No free abdominal fluid. IMPRESSION: 1.1 cm hyperechoic mass seen within the left liver. Differential diagnosis in a patient of this age includes metastatic disease and a hemangioma. A primary liver neoplasm is also possible. Please consider a dedicated liver protocol MRI (without and with contrast) for further evaluation. Dictated by: José Luis Brown M.D. on 02/24/2020 at 16:40 Approved by: José Luis Brown M.D. on 02/24/2020 at 16:42
--- NOTE | 2020-02-23 03:05 | PC.NURSE ---
Patient seen and assessed at 2355. Is alert and oriented. Breath sounds CTA with RA sat of 98%. HRR. Denies nausea. BT present and is passing flatus. Voiding without dysuria, frequency or urgency. Is independent with all mobility. Complains of 4/10 right leg pain radiating into back; medicated with Tylenol. Noted to have small scabbed abrasion on right anterior lower leg. Refusing SCD's stating she is up walking around room and ankle waving frequently. Fall risk score is moderate. Continues on contact isolation due to MRSA + blood culture.
[2020-02-23] MEDS: OXYCODONE IR 5 MG TABLET PO ×3 (04:34→18:26)
[2020-02-23] MEDS: SODIUM CHLORIDE 0.9% FLUSH 10 ML IV ×4 (05:30→22:30)
[2020-02-23] MEDS: ACETAMINOPHEN 325 MG TABLET 650 MG PO ×4 (05:31→22:28)
[2020-02-23 06:29] LABS: Add Manual Diff / Slide Review NO; Basophils Absolute Auto 0 /uL (0-100); Basophils Percent Auto 0.5 % (0-2); Eosinophils Absolute Auto 100 /uL (0-450); Eosinophils Percent Auto 1.1 % (2-4); Hemoglobin 8.2 g/dL (12.0-16.0); Lymphocytes Absolute Auto 700 /uL (1100-4500); Lymphocytes Percent Auto 8.8 % (25-40); Mean Corpuscular HGB Conc 34.1 % (30-36); Mean Corpuscular Hemoglobin 28.1 PG (26-34); Mean Corpuscular Volume 82.3 fL (80-100); Monocytes Absolute Auto 1100 /uL (0-900); Monocytes Percent Auto 12.8 % (3-14); Neutrophils Absolute Auto 6400 /uL (1500-7000); Neutrophils Percent Auto 76.8 % (50-75); Platelet Count 412 X10^3/uL (150-400); Red Blood Cell Count 2.91 X10^6/uL (4.0-5.2); Red Cell Distribution Width 15.2 % (11.6-14.8); White Blood Cell Count 8.3 X10^3/uL (4.5-11.0)
[2020-02-23 06:34] LABS: Hematocrit 23.9 % (36-46)
[2020-02-23 06:41] LABS: Alanine Aminotransferase 126 IU/L (<35); Albumin 3.3 g/dL (3.5-5.0); Albumin Globulin Ratio 0.9 (1.0-2.8); Alkaline Phosphatase 326 U/L (38-126); Aspartate Aminotransferase 150 IU/L (14-36); BUN Creatinine Ratio 7.1 (6-22); Bilirubin Total 0.4 mg/dL (0.2-1.3); Blood Urea Nitrogen 3 mg/dL (7-17); Calcium 8.7 mg/dL (8.4-10.2); Carbon Dioxide 25 mmol/L (22-32); Chloride 95 mmol/L (98-107); Estimated Glomerular Filt Rate > 60.0 mL/min (>60); Globulin 3.8 g/dL (1.7-4.1); Glucose 107 mg/dL (80-110); HEMOLYSIS < 15 (0-50); Sodium 130 mmol/L (137-145); Total Protein 7.1 g/dL (6.3-8.2)
[2020-02-23 06:48] LABS: HEMOLYSIS < 15 (0-50); Iron 14 ug/dL (37-170)
[2020-02-23 06:59] LABS: Percent Iron Saturation 7 % (15-50); Total Iron Binding Capacity 187 ug/dL (265-497); Transferrin 140 mg/dL (206-381)
[2020-02-23 07:58] LABS: Folate 15.8 ng/mL (2.76-20.0)
[2020-02-23 08:13] LABS: Vitamin B12 > 1000 pg/mL (239-931)
[2020-02-23] MEDS: ENOXAPARIN 40 MG/0.4 ML SYRINGE SUBCUT (08:19)
[2020-02-23] MEDS: POTASSIUM CHLORIDE 20 MEQ TAB 40 MEQ PO (08:20)
[2020-02-23] MEDS: buPROPion SR 150 MG TAB PO (08:20)
[2020-02-23] MEDS: ACYCLOVIR 400 MG TABLET PO (08:20)
[2020-02-23] MEDS: DOCUSATE 100 MG CAPSULE 200 MG PO ×2 (08:20→22:29)
[2020-02-23] MEDS: CITALOPRAM 10 MG TABLET PO (08:22)
[2020-02-23] MEDS: LACTOBACILLUS ACIDOPHILUS TABLET 1 EACH PO (08:22)
[2020-02-23] MEDS: ANASTROZOLE 1 MG TABLET PO (08:23)
--- NOTE | 2020-02-23 10:43 | P.PN_ITS ---
Subjective Subjective Date Patient Seen: 02/23/20 Time Patient Seen: 10:44 Interval history: Patient overall feeling slightly better today still having some abdominal discomfort and back pain. Isn't a lot better but is better. Low-grade temperatures. Fever curve continues to improve. No other significant change. Exam Vital Signs (past 8 hours): - 02/23/20 06:10 02/23/20 08:00 Temperature 99.4 F 98.4 F Pulse Rate 87 Respiratory Rate 16 Blood Pressure 136/78 Pulse Oximetry 98 Oxygen Delivery Method Room Air Oxygen Flow Rate 0 Narrative Exam Narrative: Alert slow to respond female no acute distress. Mucous membranes moist. No scleral icterus. Neck supple without adenopathy. Lungs are clear. Heart regular rate and rhythm without murmurs clicks rubs or gallops. Abdomen is soft mildly distended mild diffuse tenderness maybe a little bit more intense in the epigastric and 2 slight right upper quadrant. No rebound guarding no past splenomegaly no masses. Extremities without cyanosis clubbing edema. Back with maybe slightly improved tenderness not much different. Neurologic exam is completely nonfocal. She is alert and oriented. Emotionally somewhat fatigued today but otherwise unremarkable. Objective Labs Result Diagrams: 02/23/20 05:55 02/23/20 05:55 Labs: Laboratory Results - last 24 hr 02/23/20 02/23/20 02/23/20 05:55 05:55 05:55 WBC 8.3 RBC 2.91 L Hgb 8.2 L Hct 23.9 L MCV 82.3 MCH 28.1 MCHC 34.1 RDW 15.2 H Plt Count 412 H Neut % (Auto) 76.8 H Lymph % (Auto) 8.8 L [place] % (Auto) 12.8 Eos % (Auto) 1.1 L Baso % (Auto) 0.5 Neut # (Auto) 6400 Lymph # (Auto) 700 L [place] # (Auto) 1100 H Eos # (Auto) 100 Baso # (Auto) 0 Sodium 130 L Potassium 4.0 Chloride 95 L Carbon Dioxide 25 BUN 3 L Creatinine 0.42 L Estimated GFR > 60.0 BUN/Creatinine Ratio 7.1 Glucose 107 Calcium 8.7 Iron 14 L TIBC 187 L % Saturation 7 L Transferrin 140 L Total Bilirubin 0.4 AST 150 H ALT 126 H Alkaline Phosphatase 326 H Total Protein 7.1 Albumin 3.3 L Globulin 3.8 Albumin/Globulin Ratio 0.9 L Vitamin B12 Folate 02/23/20 02/23/20 05:55 05:55 WBC RBC Hgb Hct MCV MCH MCHC RDW Plt Count Neut % (Auto) Lymph % (Auto) [place] % (Auto) Eos % (Auto) Baso % (Auto) Neut # (Auto) Lymph # (Auto) [place] # (Auto) Eos # (Auto) Baso # (Auto) Sodium Potassium Chloride Carbon Dioxide BUN Creatinine Estimated GFR BUN/Creatinine Ratio Glucose Calcium Iron TIBC % Saturation Transferrin Total Bilirubin AST ALT Alkaline Phosphatase Total Protein Albumin Globulin Albumin/Globulin Ratio Vitamin B12 > 1000 H Folate 15.8 Assessment & Plan Assessment & Plan narrative: Epidural L1 abscess MRSA positive. We continue to be on a slow curve. Her white count continues to be stable. Her fever curve is almost resolved. With only low-grade temperature over the last 24 hours. Blood cultures were done today. Seems to be doing well on daptomycin. Need to do this outpatient for 6 weeks awaiting approval. Will repeat MRI in 1 month to make sure were improving no other change. Anemia. Iron deficient. Probably diet. Guaiac negative x2 at least. No evidence of significant bleeds otherwise. I think it best that we just replace her with IV replacement and recheck in 1 month. Patient agrees. Metabolic encephalopathy visit patient definitely has been different than her usual self this is been true over the last few months. I do not think this is central issue. I think this is a combination of infection fatigued and her previous chemotherapy but we need to watch closely. At this point no MRI or CT scan is indicated. Will follow. We discussed with patient she understands. Abdominal pain with elevated LFTs. Probably secondary to either sepsis or her medication but due to her pain will obtain ultrasound make sure were not missing anything definitive. I suspect this is more bowel related but we will follow. At least her tenderness. Not her LFTs. Patient understands questions answered. Hypokalemia. Adequately replaced. Will discontinue potassium and follow from there. Hyponatremia. Seems stable on fluid replacement will continue to follow-up followed as outpatient. Multiple myeloma. Oncologist is asking for labs need to figure out exactly what they want will follow from there. Previous breast cancer on treatment DVT prophylaxis on Lovenox. GI prophylaxis I do not think this is reflux related. We may need to consider a members all but at this point will follow. Disposition. Depending on ability to get her medicine set up for home and as long as other things are stable it would be at this point goal to be discharged tomorrow. Hopefully will have everything tight up and ready for discharge at least sometime tomorrow. We discussed with the patient I discussed this with social service. Currently rate things on plan to continue. Quality VTE Deep Vein Thrombosis/Pulmonary Embolism Present on Admission: No
--- NOTE | 2020-02-23 10:57 | CM.DPC ---
DCP continued: Reviewed chart. Spoke with Dr. Magallanes re: Dapto q24hrs [id number]. Unclear on whether or not [facility] can do at home? Placed call to [facility], spoke with answering service. Requested call back today re: above. Dr. Magallanes reports patient will be medically stable for d/c in AM on 02-24-20. P: Anticipate home with either IV abx through [facility] vs. outpatient at . Dr. Magallanes prefers that patient stay home. Notified him that SUMMER SESSIONS DIRECTOR would check cost today/tomorrow with assistance from [facility]. ELDA Vieyra
[2020-02-23] MEDS: IRON SUCROSE 200 MG in SODIUM CHLORIDE 0.9% 100 ML 220 ML IV (11:01)
--- NOTE | 2020-02-23 14:12 | CM.DPC ---
DCP continued: Spoke with Dr. Magallanes re: d/c plan. He prefers that patient go home with IV abx vs. outpatient. CORRESPONDENCE CLERK placed call to [facility] they continue to report that patient needs to call [facility] at [phone] for outpatient costs. CORRESPONDENCE CLERK met with patient explained role. Patient reports that she has spoken with Issa at [facility] and he reported to her that IV abx at the home were not covered? Therefore, she is under the impression that she will be coming to daily for 6wks. Per patient's request will call [facility] in AM to check out of pocket costs? At this time not clear how much it actually will be out of pocket? Patient agreeable to either home with IV infusion or outpatient. However, patient requesting clear instruction on COVID protocol and start date and time if outpatient. P: CORRESPONDENCE CLERK to call [facility], [facility], and outpatient infusion clinic to finalize d/c plan on 02-24-20 in AM. ELDA Vieyra
[2020-02-23] MEDS: CALCIUM CARBONATE 500 MG TAB PO (16:53)
[2020-02-23] MEDS: DAPTOmycin 500 MG in SODIUM CHLORIDE 0.9% 50 ML 100 ML IV (16:54)
[2020-02-24] MEDS: OXYCODONE IR 5 MG TABLET PO ×3 (00:43→14:55)
[2020-02-24] MEDS: CALCIUM CARBONATE 500 MG TAB PO (00:55)
[2020-02-24] MEDS: ACETAMINOPHEN 325 MG TABLET 650 MG PO ×3 (04:26→16:24)
[2020-02-24 06:30] LABS: Alanine Aminotransferase 102 IU/L (<35); Albumin 3.3 g/dL (3.5-5.0); Albumin Globulin Ratio 0.9 (1.0-2.8); Alkaline Phosphatase 275 U/L (38-126); Aspartate Aminotransferase 70 IU/L (14-36); Bilirubin Total 0.3 mg/dL (0.2-1.3); Blood Urea Nitrogen 4 mg/dL (7-17); Carbon Dioxide 24 mmol/L (22-32); Chloride 98 mmol/L (98-107); Estimated Glomerular Filt Rate > 60.0 mL/min (>60); Globulin 3.8 g/dL (1.7-4.1); Glucose 109 mg/dL (80-110); HEMOLYSIS < 15 (0-50); Sodium 133 mmol/L (137-145); Total Protein 7.1 g/dL (6.3-8.2)
[2020-02-24 06:36] LABS: Add Manual Diff / Slide Review NO; Basophils Absolute Auto 100 /uL (0-100); Basophils Percent Auto 0.7 % (0-2); Eosinophils Absolute Auto 100 /uL (0-450); Eosinophils Percent Auto 1.5 % (2-4); Lymphocytes Absolute Auto 700 /uL (1100-4500); Lymphocytes Percent Auto 9.2 % (25-40); Mean Corpuscular HGB Conc 34.2 % (30-36); Mean Corpuscular Hemoglobin 28.2 PG (26-34); Mean Corpuscular Volume 82.6 fL (80-100); Monocytes Absolute Auto 1100 /uL (0-900); Monocytes Percent Auto 13.8 % (3-14); Neutrophils Absolute Auto 5900 /uL (1500-7000); Neutrophils Percent Auto 74.8 % (50-75); Platelet Count 445 X10^3/uL (150-400); Red Blood Cell Count 2.82 X10^6/uL (4.0-5.2); Red Cell Distribution Width 15.2 % (11.6-14.8); White Blood Cell Count 7.9 X10^3/uL (4.5-11.0)
[2020-02-24 06:40] LABS: Hematocrit 23.3 % (36-46)
[2020-02-24 08:00] VITALS: BP 132/86; PULSE 83; RESP 16; TEMP 37.1; O2SAT 95
[2020-02-24 10:15] LABS: Acinetobacter baumannii Not Detected (Not Detect); Candida albicans Not Detected (Not Detect); Candida glabrata Not Detected (Not Detect); Candida krusei Not Detected (Not Detect); Candida parapsilosis Not Detected (Not Detect); Candida tropicalis Not Detected (Not Detect); E. coli Not Detected (Not Detect); Enterobacter cloacae complex Not Detected (Not Detect); Enterobacteriaceae species Not Detected (Not Detect); Enterococcus species Not Detected (Not Detect); Haemophilus influenzae Not Detected (Not Detect); KPC (carbapenem-resist gene) Not Detected (Not Detect); Listeria monocytogenes Not Detected (Not Detect); Methicillin-resistant gene Detected (Not Detect); Neisseria meningitidis Not Detected (Not Detect); Proteus species Not Detected (Not Detect); Pseudomonas aeruginosa Not Detected (Not Detect); Serratia marcescens Not Detected (Not Detect); Staphylococcus species Detected (Not Detect); Streptococcus agalactiae (Gr B Not Detected (Not Detect); Streptococcus pneumonia Not Detected (Not Detect); Streptococcus pyogenes (Gr A) Not Detected (Not Detect); Streptococcus species Not Detected (Not Detect); Vancomycin-rest genes A/B Not Detected (Not Detect)
[2020-02-24] MEDS: ACYCLOVIR 400 MG TABLET PO (10:21)
[2020-02-24] MEDS: buPROPion SR 150 MG TAB PO (10:22)
[2020-02-24] MEDS: LACTOBACILLUS ACIDOPHILUS TABLET 1 EACH PO (10:22)
[2020-02-24] MEDS: DOCUSATE 100 MG CAPSULE 200 MG PO (10:22)
[2020-02-24] MEDS: CITALOPRAM 10 MG TABLET PO (10:22)
[2020-02-24] MEDS: ANASTROZOLE 1 MG TABLET PO (10:22)
[2020-02-24] MEDS: ENOXAPARIN 40 MG/0.4 ML SYRINGE SUBCUT (10:23)
[2020-02-24 10:55] VITALS: O2SAT 99
--- NOTE | 2020-02-24 12:52 | DI.RAD.S_ITS ---
PROCEDURE: XR CHEST FOR PICC 1V INDICATIONS: line palcement COMPARISON: [facility], CR, XR CHEST FOR PICC 1V, 02/20/2020, 9:35. FINDINGS: PICC was placed by the intravenous therapy team from the left side. Fluoroscopic spot film demonstrates the tip of PICC projecting to the area of SVC right atrial junction. Right-sided PICC line remains in satisfactory position. Left breast clips and left axillary resection clips. Cholecystectomy clips. No gross infiltrates. IMPRESSION: Tip of left arm PICC projects to the area of SVC right atrial junction. Dictated by: Edy Styles M.D. on 02/24/2020 at 14:26 Approved by: Edy Styles M.D. on 02/24/2020 at 14:27
[2020-02-24 15:00] VITALS: O2SAT 99
[2020-02-24 15:25] VITALS: BP 120/81; PULSE 88; RESP 17; TEMP 37.3; O2SAT 95
--- NOTE | 2020-02-24 15:52 | CM.DPC ---
DCP/continued: Reviewed chart. SPIKE MACHINE FEEDER placed call this AM to [facility] to attempt home IV abx benefit. On hold with [facility] for approximately 45 minutes. Spoke with fulfillment representative whom reports that benefit will depend on expense billed, and deductible, in/out patient network. [employer] rep confirms that [facility] is not preferred provider. Preferred infusion provider is [facility]? After attempting to obtain IV infusion at home Dr. Magallanes reports that patient wants to do outpatient at [facility] instead. Met with patient and confirmed the above. Patient emotional at time of visit and SPIKE MACHINE FEEDER provided support and outpatient [place] resources. Placed call to outpatient IV infusion, spoke with Beth, she reports they can accept referral however, Dr. Magallanes's office needs to obtain authorization. Placed call to Dr. Magallanes informing him of above. He reports that he will ask his staff to start. Spoke with Guillermina in his office and provided her with code for Daptomyacin #[id number]. Prescription also faxed. Received call from both Dr. Escoto and Guillermina indicating authorization obtained and faxed to Beth at infusion clinic. Patient scheduled to have first visit on 02-25-20 at 2:30pm. RN/Kriss notified and will include in d/c instructions. In addition outpatient infusion center will call and confirm with patient prior to appointment. P: Home with outpatient IV infusion at [facility] [phone]. ELDA Vieyra
--- NOTE | 2020-02-24 15:54 | PC.NURSE ---
PICC line: Old PICC dc'd from [facility] per order, tip sent to lab for culture. New PICC inserted in E by MATEO Jameson today. Ultrasound aware that patient now available for abd US as ordered.
[2020-02-24] MEDS: DAPTOmycin 500 MG in SODIUM CHLORIDE 0.9% 50 ML 100 ML IV (16:14)
--- NOTE | 2020-02-24 18:07 | PM.DS.1 ---
History of Present Illness History of Present Illness Chief complaint: epidural abscess,multiple myeloma Narrative: Patient is a 65-year-old white female who has been a longstanding patient of mine who presents with increasing back pain fever chills and history of elevated white count. Patient began having back pain and early December. She was seen for fever and placed on Levaquin. Patient had been actually doing quite well she was seen in mid December for recurrence symptoms still had back pain. Her back pain was always on the mid to left side. Seemed to be in SI joint. It been treated for that. No imaging was done. Patient was placed on Levaquin again for 2 weeks despite the fact that no source was noted by me. She had complete resolution of symptoms except for back pain. No fevers no chills or white count had decreased from 14-1926 and had remained in that position for 3 weeks. She had otherwise felt well. But was having continued back pain. She never had any weakness numbness or other change. All the pain was located in her left lateral hip with some radiation into the midline. She had no radiation to her buttocks. Pain seemed to be worse at night. Depending on which she do an it her daytime. She was unable to actually move except to log roll in the bed. During the day she seemed to be better. She had no numbness tingling no change in her bowels movements. No urinary issues. She otherwise had no changes she had went until recently was continuing to have back pain x-ray was negative and she had an MRI which showed a epidural L1 abscess. She was starting to have increasing fevers and was otherwise in moderate discomfort sometimes severe at night and it was elected to bring her into the hospital. Patient otherwise had no other significant changes Patient has had no cough or runny nose. She has had no shortness of breath no chest pain no headaches no visual symptoms. No ear pain. She has not had any abdominal pain. Although her appetite has been slightly decreased. No painful urination. No diarrhea. She otherwise is felt pretty well up until the last 2 days. Fever has been up to 102. Past medical history is significant for: History of hyponatremia Multiple myeloma Depression Vitamin B12 deficiency Migraine Hyperlipidemia Malignant neoplasm left breast 2016 History of anemia Past surgical history left stapedectomy 1989, left lumpectomy 2016 for breast cancer Family history: Father with heart disease is hypertension and COPD, mother depression and multiple myeloma, sister 54 breast cancer, Social history to Don. Children are supportive. 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 Patient was admitted with fevers chills and known epidural abscess. It was discussed with neurosurgeon who did not see inability to or need to do anything other than I antibiotics. She was started on Rocephin and vancomycin. One day after admission she had improved white count period and MRSA positive 2/2 blood for blood cultures. She was continued on her current antibiotic and slowly her white count improved pain improved and clinically she seemed to improve slowly but surely. Over the course of her admission her temperature curve completely resolved. She was feeling 85% better on the day of admission. After discussion with Infectious Disease she was switched from her antibiotics to daptomycin which would be a much better drug for outpatient MRSA treatment. She continued to improve after switch. Recommendation was for blood cultures through her arm and the tip of her PICC line which was inserted on his day after admission. No other changes. Blood cultures were positive on the PICC line. It was pulled and tip was cultured. New PICC line was placed. On the day of discharge. It was set up for her to do outpatient IV q.day daptomycin. She will be recheck with labs on . And will be followed by me in 2 weeks. Sooner if any change. Will be in touch with her by phone. I will be out next week. Anemia iron deficiency. Coag-negative x2. Probably diet related. She was initially thought to have delusional anemia but clearly after discontinuation of fluid she continued to be low. Iron study showed significant decreased. She was replaced with IV due to her concern about nausea and vomiting. Will repeat in 1 month. Metabolic encephalopathy. Patient's been having a change in her thinking process but it seemed worse when she was in her hospitalization. Neurologic exam was completely normal with no changes. We discussed this she feels like it has been since she had her multiple myeloma treated and was worsened as she has been sick over the last 2 months. Since she is normal and seems to be improving we will follow as an outpatient. No MRI at this time. No further follow-up will see how she clears. Abdominal pain with elevated LFTs. She has been followed. Noted to have mildly elevated LFTs. She did has a period of about 3 days mid treatment were she was having some discomfort which she felt was secondary to the antibiotics. Actually cleared when she got off the vancomycin. Her LFTs continue to be an issue and was felt to be initially secondary to her infection. Due to the fact that they were changing and she had a normal exam and ultrasound was obtained which showed an abnormal area in her right liver which could be significant or not. Will need outpatient MRI. Will set that up when I see her in follow-up. Otherwise low risk for obtaining hepatitis virus but will need to be followed and may need gastrointestinal evaluation. Hypokalemia. Patient was noted on mid course to be hypokalemic. She was started on p.o. replacement and within 2 days she had normalized and has been stable since that time. Will follow as an outpatient to make sure issues remain stable. Hyponatremia. Patient was noted within 24 hours to have a dropping sodium. She was placed on saline which she was already taking IV and was placed on fluid restriction. She normalized over 2 days and was discontinued with that therapy and she had stayed normal. I think she was probably drinking a significant amount of fluid why she was not feeling well and we discussed the importance of not doing this. Will follow as an outpatient but do not think it is significant. Multiple myeloma. Has been stable through the course of admission no other change. 45 minutes spent with discharge today and coordination of care with social service and patient Status at Discharge Cognitive/behavioral status at discharge: oriented Functional status at discharge: independent ambulation Overall status at discharge: patient is progressing back to baseline Exam Vital Signs (past 8 hours): - 02/24/20 10:55 02/24/20 15:25 Temperature 99.2 F Pulse Rate 88 Respiratory Rate 17 Blood Pressure 120/81 Pulse Oximetry 99 95 Oxygen Delivery Method Room Air Oxygen Flow Rate 0 Narrative Exam Narrative: Alert female much less fatigue smiling in no acute distress. Interactive appropriate. HEENT exam mucous membranes moist. Neck supple without adenopathy. Lungs are clear. Heart regular rate and rhythm. Abdomen is soft positive bowel sounds nontender today. Extremities without cyanosis clubbing edema. She still continues to have low back pain but is significantly improved. Neurologic exam is completely normal reflexes motor cranial nerves. Ambulation is appropriate and unremarkable. Psychologically she is much more alert and interactive today. Much happier. Objective Labs Result Diagrams: 02/24/20 05:52 02/24/20 05:52 Labs: Laboratory Results - last 24 hr 02/23/20 02/24/20 02/24/20 05:55 05:52 05:52 WBC 7.9 RBC 2.82 L Hgb 8.0 L Hct 23.3 L MCV 82.6 MCH 28.2 MCHC 34.2 RDW 15.2 H Plt Count 445 H Neut % (Auto) 74.8 Lymph % (Auto) 9.2 L Giles % (Auto) 13.8 Eos % (Auto) 1.5 L Baso % (Auto) 0.7 Neut # (Auto) 5900 Lymph # (Auto) 700 L Giles # (Auto) 1100 H Eos # (Auto) 100 Baso # (Auto) 100 Sodium 133 L Potassium 4.0 Chloride 98 Carbon Dioxide 24 BUN 4 L Creatinine 0.40 L Estimated GFR > 60.0 BUN/Creatinine Ratio 10.0 Glucose 109 Calcium 9.0 Total Bilirubin 0.3 AST 70 H ALT 102 H Alkaline Phosphatase 275 H Total Protein 7.1 Albumin 3.3 L Globulin 3.8 Albumin/Globulin Ratio 0.9 L A. baumannii (PCR) Not detected Clementine albicans (PCR) Not detected C. glabrata (PCR) Not detected C. krusei (PCR) Not detected C. parapsilosis (PCR) Not detected C. tropicalis (PCR) Not detected Enterobacteriac sp PCR Not detected E. cloacae complex PCR Not detected Enterococcus sp PCR Not detected E. coli (PCR) Not detected H. influenzae (PCR) Not detected Klebsiella oxytoca PCR Not detected Klebsiella pneumoniae Not detected List. monocytogenes PCR Not detected N. meningitidis (PCR) Not detected Proteus species (PCR) Not detected Serratia marcescens PCR Not detected Staphylococcus sp PCR Detected H Staph aureus (PCR) Detected H mecA-Methicil Res Gene Detected H Streptococcus sp PCR Not detected Group A Strep (PCR) Not detected Strep agalactiae (PCR) Not detected Strep pneumoniae (PCR) Not detected P. aeruginosa (PCR) Not detected Abdirashid/B-Vanco Res Genes Not detected KPC-Carbap Res Gene PCR Not detected Discharge Plan Discharge Plan Patient Disposition: Home Discharge comment: patient to return to usual medication as ordered. lab draw. Call tomorrow for follow up appointment two weeks Discharge orders & Medications Prescriptions: New acyclovir 400 mg Tablet 400 mg PO DAILY Qty: 30 RF: 0 daptomycin 500 mg recon soln 500 mg IV Q24H 42 Days Qty: 1 RF: 0 hydrocodone-acetaminophen 5-325 mg tablet 1 tab PO Q6H PRN (Reason: pain) Qty: 42 RF: 0 Continued bupropion HCl [Wellbutrin SR] 150 MG tablet extended release 12 hr 150 mg PO QDAY Qty: 0 RF: 0 citalopram 20 MG tablet 20 mg PO QDAY Qty: 0 RF: 0 anastrozole 1 MG tablet 1 mg PO QDAY Qty: 0 RF: 0 calcium citrate-vitamin D3 315 MG/200 IU tablet 1 tab PO DAILY Qty: 0 RF: 0 cholecalciferol (vitamin D3) [Vitamin D3] 2,000 UNIT capsule 2,000 unit PO DAILY Qty: 0 RF: 0 cyanocobalamin (vitamin B-12) 1,000 MCG/1 ML solution 1,000 mcg SUBCUT DAILY Qty: 0 RF: 0 [VIT B/C/FOLIC ACID] 1 tab PO DAILY Qty: 0 RF: 0 vitamin E 400 UNIT capsule 400 unit PO DAILY Qty: 0 RF: 0 [PROBIOTIC] 1 cap PO BID Qty: 0 RF: 0 Other Ambulatory Orders: Complete Blood Count AUTO DIFF (Stat) Timeframe: 3 Days Facility: [facility] - Location: Laboratory Ordered By: Ari Magallanes Comprehensive Metabolic Panel (Stat) Timeframe: 3 Days Facility: [facility] - Location: Laboratory Ordered By: Ari Magallanes Follow up/Referrals: Ari Magallanes MD [Primary Care Provider] - Discharge Health Status Multidrug resistant organism: No MDRO Diet/Activity/Treatments Diet: Diet as Tolerated Activity: as tolerated Other treatments: picc line in place Skin/Wound/Dressing Care Report to your healthcare provider any signs of infection, such as:: chills, fever, night sweats and increased pain Dressing: as per nurses Discharge Data Primary Care Provider: Ari Magallanes VTE Deep Vein Thrombosis/Pulmonary Embolism Present on Admission: No
--- NOTE | 2020-02-24 19:08 | PC.NURSE ---
LS clear, RA 100%; pt reports moderate pain to right hip at d/c; pain meds not due so patient plans to take at home; pt instructions included f/u appts with infusion, PCP, and lab draws, as well as PICC drsg change due 02/25; patient escorted via wheelchair to personal vehicle with personal belongings in hand
[2020-02-25 16:35] LABS: Free Kappa Lt Chains, Serum 17.6 mg/L (3.3-19.4); Free Lambda Lt Chains,Serum 13.4 mg/L (5.7-26.3)
== END 2020-02-24 19:00 | disposition home or self-care (01) | DRG 95 ==
PROVIDERS: Family Medicine; Admitting Provider Family Medicine; Family Provider Family Medicine; PCP Family Medicine; Referring Provider Family Medicine; Visit Provider Family Medicine
DX: G06.2 Extradural and subdural abscess, unspecified (principal); E87.1 Hypo-osmolality and hyponatremia; C90.00 Multiple myeloma not having achieved remission; D63.0 Anemia in neoplastic disease; E83.51 Hypocalcemia; E87.6 Hypokalemia; K75.9 Inflammatory liver disease, unspecified; B95.62 Methicillin resistant Staphylococcus aureus infection as the cause of diseases classified elsewhere; F32.9 Major depressive disorder, single episode, unspecified; J30.0 Vasomotor rhinitis; Z85.3 Personal history of malignant neoplasm of breast
CPT/HCPCS: 36415; 36569; 36592; 76700; 80048; 80053; 80202; 82607; 82746; 83540; 83550; 83883; 85025; 87040; 87070; 87150; 87186; 87205; 97110; 97161; 97530; J0610; J0696; J0780; J0878; J1642; J1650; J1756; J3370

== ENCOUNTER → 2020-03-03 08:59 | Outpatient (CLI) | payer OTHER, SELFPAY ==
[2020-02-18 15:33] VITALS: BMI 24.0
--- NOTE | 2020-03-03 | DI.MRI.S_ITS ---
PROCEDURE: MR ABDOMEN WO/W CON INDICATIONS: LIVER MASS TECHNIQUE: Coronal HASTE, axial 2D FLASH in- and [id number]; axial breath-hold T2 FSE. Dynamic axial VIBE during the administration of contrast; post-contrast coronal VIBE or 2D FLASH with fat saturation from the hepatic dome to the iliac crests. Optional diffusion weighted imaging and ADC may be performed. COMPARISON: [facility], MR, MR LUMBAR SPINE WO CON, 02/17/2020, 9:01. [facility], CR, THORACIC SPINE 3 VIEWS, 02/16/2012, 14:59. [facility], CR, XR CHEST FOR PICC 1V, 02/20/2020, 9:35. [facility], CR, XR CHEST FOR PICC 1V, 02/24/2020, 13:00. [facility], US, RENAL OR RETROPERITONEAL LIMIT, 06/22/2012, 13:01. [facility], US, US ABDOMEN COMPLETE, 02/24/2020, 16:04. FINDINGS: Image quality: Excellent. Lung bases: No basal pleural effusions. Heart size is normal. Solid organs: Liver is normal in size and enhancement except for presence of a small hemangioma within the subcapsular left lateral hepatic segment best seen on T2 haste imaging series 4 image 14 and arterial phase T1 fat-suppressed imaging series 13 image 30. This also can be identified on the diffusion imaging series 20 image 12.. Gallbladder appears previously resected. Biliary system is non dilated. Pancreas is normal in morphology. Spleen is normal in size and enhancement. No adrenal nodules. Both kidneys demonstrate normal size and enhancement, without hydronephrosis. Nodes and vessels: No retroperitoneal or mesenteric adenopathy by size criteria. Aorta and inferior vena cava are normal in size. Bowel and peritoneum: Unenhanced bowel loops are normal in caliber. No free fluid. Bones and soft tissues: No ventral hernias. Bone marrow is normal in overall signal except in the area of previously identified discitis and osteomyelitis involving predominantly the L1 and L2 vertebral bodies are well also extending into the marrow space of L3. The paravertebral soft tissues show prominent thickening and enhancement in this area, with a small amount of crescentic fluid along the right lateral border in the area of maximal inflammation, consistent with a small paravertebral abscess that would not be accessible for CT-guided drainage. There is inflammation and enhancement involving the marrow space of L1 and L2 in addition to the paravertebral soft tissues, and the L3 involvement is moderate but clearly advanced from the prior LS spine MR scanning. Note is made of what appears to be an epidural abscess, with several small areas of discontinuous internal fluid signal, nonenhancing. For example this is seen to the left of midline on series 13 image 49, and at the midline centered on series 13 image 59. Fluid within the prevertebral phlegmon area can be seen centered on series 13 image 55 and 59. Right lateral crescentic fluid can be seen in the paravertebral inflammatory process series 13 image 51. What appears to be a marrow space hemangioma is seen at L1 centered at and to the right of midline.. IMPRESSION: 1. Small left lateral hepatic segment benign hemangioma, no followup recommended. As was previously documented by ultrasound this measures only approximately 1.1 cm and if clinically desired followup by ultrasound could be obtained. 2. The patient has a previously identified discitis and osteomyelitis centered at L1-L2 which has progressed into the L3 vertebral body marrow space as indicated by enhancement and elevated fluid signal in that area. Epidural abscess/phlegmon formation previously identified is not fully evaluated by this targeted hepatic study but clearly is associated with a small amount of central fluid content. High-grade spinal stenosis is not associated. 3. Paravertebral inflammation and phlegmon/abscess formation also is present, in this patient receiving intravenous antibiotics. If clinically desired a more accurate assessment for comparison of the details of the spinal stenosis, and fine details of abscess size and location could be obtained utilizing contrast-enhanced MR scanning with LS-spine targeted technique. Dictated by: Vijay Reid M.D. on 03/03/2020 at 12:25 Approved by: Vijay Reid M.D. on 03/03/2020 at 12:54
== END ==
PROVIDERS: Family Provider Family Medicine; PCP Family Medicine; Referring Provider Family Medicine; Visit Provider Family Medicine
DX: K76.9 Liver disease, unspecified (principal); D18.09 Hemangioma of other sites; M46.46 Discitis, unspecified, lumbar region; M46.26 Osteomyelitis of vertebra, lumbar region; G06.1 Intraspinal abscess and granuloma
CPT/HCPCS: 74183; A9579

== ENCOUNTER → 2020-03-25 07:46 | Outpatient (CLI) | payer OTHER, SELFPAY ==
--- NOTE | 2020-03-25 | DI.MRI.S_ITS ---
PROCEDURE: MR LUMBAR SPINE WO/W CON INDICATIONS: Extradural and subdural abscess, unspecified TECHNIQUE: Noncontrast sagittal T1 spin echo and T2 fast spin echo, sagittal STIR, axial T1 and T2 fast spin echo through the lumbar spine. In cases with scoliosis, additional coronal T2 fast spin echo may be performed. After the administration of contrast, sagittal and axial T1 spin echo with fat saturation through the lumbar spine. COMPARISON: [facility], MR, MR LUMBAR SPINE WO CON, 02/17/2020, 9:01. [facility], MR, MR ABDOMEN WO/W CON, 03/03/2020, 9:20. FINDINGS: Image quality: Diagnostic, with note made of motion artifact. Alignment and curvature: There is normal bony alignment. Marrow: There is abnormally decreased T1 weighted signal and abnormally increased STIR signal seen within the L1, L2, and L3 vertebral bodies. Abnormal enhancement can be seen within these vertebral bodies. This has clearly worsened compared to the prior CT dated 02/17/20. No acute vertebral body compression fractures. Spinal cord: Conus medullaris terminates at the L1 level. Visualized spinal cord demonstrates normal signal, without suspicious enhancement. Paraspinous soft tissues: There is abnormal swelling and enhancement seen within the paravertebral soft tissues, which is seen from the L1 level through the L3-L4 level, including thickening and enhancement of the psoas muscles. This patient has transitional lumbar anatomy. For the purposes of this examination, the level with the last well-developed disc space is considered to be L5-S1. This numbering scheme is chosen to remain prior lumbar spine MRI report. There is abnormally increased T2-weighted/STIR signal seen within the L1-L2 disc, with abnormal enhancement along this disc level and there is mildly increased abnormal STIR signal and enhancement seen within the anterior aspect of the L2-L3 disc. Posterior to the L1-L2 and L2-L3 disc levels, there is an enhancing heterogeneous fluid collection seen, which now spans 6.7 cm craniocaudal, which has clearly increased in size compared to the prior lumbar spine MRI. There is associated moderate to severe central canal narrowing at L2-L3 and L3-L4. At least moderate bilateral neural foraminal narrowing seen at L1-L2 and L2-L3. IMPRESSION: Clear interval worsening of this patient's epidural abscess compared to 02/17/20, which was previously seen centered at the L1-L2 level, yet now involves the L2-L3 level. The discitis and osteomyelitis has expanded to now involve the L2-L3 level, with abnormal signal and enhancement involving the L1, L2, and L3 vertebral bodies. There is associated soft tissue involvement surrounding these vertebral bodies, with expansion and abnormal enhancement, including involving the psoas muscles on both sides. Dictated by: José Luis Brown M.D. on 03/25/2020 at 8:25 Approved by: José Luis Brown M.D. on 03/25/2020 at 8:37
--- NOTE | 2020-03-25 16:14 | PC.NURSE ---
1600 Disconnect pt from antibiotic infusion, saline and heparin locked pt PICC line. Pt discharged in stable condition, No further pt contact at this time.
== END ==
PROVIDERS: Family Provider Family Medicine; PCP Family Medicine; Referring Provider Family Medicine; Visit Provider Family Medicine
DX: G06.2 Extradural and subdural abscess, unspecified (principal); M46.46 Discitis, unspecified, lumbar region; M46.26 Osteomyelitis of vertebra, lumbar region
CPT/HCPCS: 72158; J1642

== ENCOUNTER → 2020-05-14 11:00 | Oncology outpatient (ONC) | payer OTHER, SELFPAY ==
[2020-02-25] MEDS: DAPTOmycin 500 MG in SODIUM CHLORIDE 0.9% 50 ML 100 ML IV (14:45)
[2020-02-25 14:56] VITALS: BP 120/81; PULSE 102; RESP 20; TEMP 37.3; O2SAT 97
[2020-02-26] MEDS: DAPTOmycin 500 MG in SODIUM CHLORIDE 0.9% 50 ML 100 ML IV (14:43)
--- NOTE | 2020-02-26 14:44 | PC.NURSE ---
Pt arrived to the AC floor at approx. 1430. Pt has been made comfortable in rm 201. IV abx infusion started to LUE PICC.
[2020-02-26 14:45] VITALS: BP 127/74; PULSE 92; RESP 18; TEMP 37.2
[2020-02-27] MEDS: DAPTOmycin 500 MG in SODIUM CHLORIDE 0.9% 50 ML 100 ML IV (14:29)
[2020-02-27 14:35] VITALS: BP 127/95; PULSE 88; RESP 16; TEMP 36.7; O2SAT 95
[2020-02-28 14:30] VITALS: BP 134/79; PULSE 103; RESP 18; TEMP 37.3; O2SAT 98
[2020-02-28] MEDS: DAPTOmycin 500 MG in SODIUM CHLORIDE 0.9% 50 ML 100 ML IV (14:43)
--- NOTE | 2020-02-28 15:46 | PC.NURSE ---
Day Shift- Pt arrived on unit at 1426, up ad huey, settled into room 201, call light within reach. Pt stated prior to coming into hospital she had taken an 800mg dose of Ibuprofen for back and left leg discomfort. Has a electric heating pad with her. Water and small amount of coffee given per pt's request. DRISS PICC dressing CDI, flushes well with brisk blood return. CBC and CMP drawn per order and sent to lab. Infusion started infusing per order. Pt requested her lab results be sent to [facility] at [facility]. . RN Coordinator aware.
[2020-02-28 15:55] LABS: Add Manual Diff / Slide Review NO; Basophils Absolute Auto 0 /uL (0-100); Basophils Percent Auto 0.2 % (0-2); Eosinophils Absolute Auto 100 /uL (0-450); Eosinophils Percent Auto 1.7 % (2-4); Hematocrit 25.9 % (36-46); Hemoglobin 8.6 g/dL (12.0-16.0); Lymphocytes Absolute Auto 800 /uL (1100-4500); Lymphocytes Percent Auto 11.1 % (25-40); Mean Corpuscular HGB Conc 33.3 % (30-36); Mean Corpuscular Hemoglobin 28.1 PG (26-34); Mean Corpuscular Volume 84.4 fL (80-100); Monocytes Absolute Auto 600 /uL (0-900); Monocytes Percent Auto 7.5 % (3-14); Neutrophils Absolute Auto 5900 /uL (1500-7000); Neutrophils Percent Auto 79.5 % (50-75); Platelet Count 625 X10^3/uL (150-400); Red Blood Cell Count 3.07 X10^6/uL (4.0-5.2); Red Cell Distribution Width 15.6 % (11.6-14.8); White Blood Cell Count 7.4 X10^3/uL (4.5-11.0)
[2020-02-28 16:00] LABS: Alanine Aminotransferase 67 IU/L (<35); Albumin 3.5 g/dL (3.5-5.0); Albumin Globulin Ratio 0.9 (1.0-2.8); Alkaline Phosphatase 230 U/L (38-126); Aspartate Aminotransferase 94 IU/L (14-36); BUN Creatinine Ratio 11.5 (6-22); Bilirubin Total 0.3 mg/dL (0.2-1.3); Blood Urea Nitrogen 7 mg/dL (7-17); Calcium 8.7 mg/dL (8.4-10.2); Carbon Dioxide 25 mmol/L (22-32); Chloride 104 mmol/L (98-107); Estimated Glomerular Filt Rate > 60.0 mL/min (>60); Globulin 3.9 g/dL (1.7-4.1); Glucose 150 mg/dL (80-110); HEMOLYSIS < 15 (0-50); Potassium 3.9 mmol/L (3.4-5.1); Sodium 142 mmol/L (137-145); Total Protein 7.4 g/dL (6.3-8.2)
[2020-02-29] MEDS: DAPTOmycin 500 MG in SODIUM CHLORIDE 0.9% 50 ML 100 ML IV (14:23)
[2020-02-29 14:29] VITALS: BP 127/82; PULSE 84; RESP 17; TEMP 36.9; O2SAT 97
[2020-03-01 14:20] VITALS: BP 150/86; PULSE 91; RESP 18; TEMP 37.2; O2SAT 95
[2020-03-01] MEDS: DAPTOmycin 500 MG in SODIUM CHLORIDE 0.9% 50 ML 100 ML IV (14:24)
[2020-03-02 14:36] VITALS: BP 125/87; PULSE 81; RESP 18; TEMP 37.1; O2SAT 97
[2020-03-02] MEDS: DAPTOmycin 500 MG in SODIUM CHLORIDE 0.9% 50 ML 100 ML IV (14:36)
[2020-03-03] MEDS: DAPTOmycin 500 MG in SODIUM CHLORIDE 0.9% 50 ML 100 ML IV (14:37)
[2020-03-03 14:38] VITALS: BP 136/87; PULSE 94; RESP 18; TEMP 37.1; O2SAT 95
[2020-03-04] MEDS: DAPTOmycin 500 MG in SODIUM CHLORIDE 0.9% 50 ML 100 ML IV (14:30)
[2020-03-04 14:32] VITALS: BP 124/83; PULSE 80; RESP 16; TEMP 37.3; O2SAT 98
[2020-03-05] MEDS: DAPTOmycin 500 MG in SODIUM CHLORIDE 0.9% 50 ML 100 ML IV (14:51)
[2020-03-05 14:53] VITALS: BP 145/85; PULSE 90; RESP 16; TEMP 36.7; O2SAT 96
[2020-03-05 15:39] VITALS: BP 138/78; PULSE 85
[2020-03-06 14:27] VITALS: BP 124/85; PULSE 88; RESP 16; TEMP 37; O2SAT 99
[2020-03-06] MEDS: DAPTOmycin 500 MG in SODIUM CHLORIDE 0.9% 50 ML 100 ML IV (14:28)
[2020-03-07] MEDS: DAPTOmycin 500 MG in SODIUM CHLORIDE 0.9% 50 ML 100 ML IV (14:38)
[2020-03-07 14:45] VITALS: BP 120/87; PULSE 97; RESP 20; TEMP 36.8; O2SAT 98
--- NOTE | 2020-03-07 14:47 | PC.NURSE ---
Pt arrived from home in good spirits. offers no overt c/o saying she is feeling pretty good today. PICC accessed per protocal. Site intact and PICC patent.VSS.
[2020-03-08] MEDS: DAPTOmycin 500 MG in SODIUM CHLORIDE 0.9% 50 ML 100 ML IV (14:34)
[2020-03-08 14:41] VITALS: BP 125/77; PULSE 77; RESP 12; TEMP 36.3
[2020-03-09 14:46] VITALS: BP 118/67; PULSE 81; RESP 16; TEMP 36.8; O2SAT 96
[2020-03-09] MEDS: DAPTOmycin 500 MG in SODIUM CHLORIDE 0.9% 50 ML 100 ML IV (15:05)
[2020-03-09 15:08] LABS: Add Manual Diff / Slide Review NO; Basophils Absolute Auto 100 /uL (0-100); Basophils Percent Auto 1.3 % (0-2); Eosinophils Absolute Auto 100 /uL (0-450); Eosinophils Percent Auto 1.5 % (2-4); Hemoglobin 8.6 g/dL (12.0-16.0); Lymphocytes Absolute Auto 900 /uL (1100-4500); Lymphocytes Percent Auto 16.3 % (25-40); Mean Corpuscular Hemoglobin 27.4 PG (26-34); Mean Corpuscular Volume 83.2 fL (80-100); Monocytes Absolute Auto 600 /uL (0-900); Monocytes Percent Auto 10.9 % (3-14); Neutrophils Absolute Auto 4000 /uL (1500-7000); Platelet Count 520 X10^3/uL (150-400); Red Blood Cell Count 3.12 X10^6/uL (4.0-5.2); Red Cell Distribution Width 16.5 % (11.6-14.8); White Blood Cell Count 5.7 X10^3/uL (4.5-11.0)
[2020-03-09 15:35] LABS: Alanine Aminotransferase 26 IU/L (<35); Albumin 3.5 g/dL (3.5-5.0); Albumin Globulin Ratio 0.9 (1.0-2.8); Alkaline Phosphatase 126 U/L (38-126); Aspartate Aminotransferase 45 IU/L (14-36); Bilirubin Total 0.2 mg/dL (0.2-1.3); Blood Urea Nitrogen 9 mg/dL (7-17); Calcium 8.7 mg/dL (8.4-10.2); Carbon Dioxide 25 mmol/L (22-32); Chloride 102 mmol/L (98-107); Estimated Glomerular Filt Rate > 60.0 mL/min (>60); Globulin 4.1 g/dL (1.7-4.1); Glucose 139 mg/dL (80-110); HEMOLYSIS < 15 (0-50); Potassium 4.1 mmol/L (3.4-5.1); Sodium 140 mmol/L (137-145); Total Protein 7.6 g/dL (6.3-8.2)
[2020-03-09 15:43] LABS: Total Iron Binding Capacity 223 ug/dL (265-497)
[2020-03-09 16:09] LABS: Ferritin 202 ng/mL (11-264)
[2020-03-10 14:50] VITALS: BP 133/80; PULSE 86; RESP 16; TEMP 36.8; O2SAT 97
[2020-03-10] MEDS: DAPTOmycin 500 MG in SODIUM CHLORIDE 0.9% 50 ML 100 ML IV (15:04)
[2020-03-11] MEDS: DAPTOmycin 500 MG in SODIUM CHLORIDE 0.9% 50 ML 100 ML IV (14:38)
[2020-03-11 14:48] VITALS: BP 138/94; PULSE 94; RESP 16; TEMP 36.3
[2020-03-12 14:22] VITALS: BP 135/82; PULSE 88; RESP 16; TEMP 36.9; O2SAT 99
[2020-03-12] MEDS: DAPTOmycin 500 MG in SODIUM CHLORIDE 0.9% 50 ML 100 ML IV (14:22)
[2020-03-13] MEDS: DAPTOmycin 500 MG in SODIUM CHLORIDE 0.9% 50 ML 100 ML IV (14:40)
[2020-03-13 14:43] VITALS: BP 132/85; PULSE 83; RESP 18; TEMP 37.2; O2SAT 99
[2020-03-14] MEDS: DAPTOmycin 500 MG in SODIUM CHLORIDE 0.9% 50 ML 100 ML IV (14:37)
[2020-03-14 14:51] VITALS: BP 135/71; PULSE 82; RESP 16; TEMP 36.6; O2SAT 97
[2020-03-15 14:35] VITALS: BP 133/84; PULSE 94; RESP 20; TEMP 37.1; O2SAT 100
[2020-03-15] MEDS: DAPTOmycin 500 MG in SODIUM CHLORIDE 0.9% 50 ML 100 ML IV (14:58)
[2020-03-16] MEDS: DAPTOmycin 500 MG in SODIUM CHLORIDE 0.9% 50 ML 100 ML IV (14:21)
[2020-03-16 14:29] VITALS: BP 131/82; PULSE 82; RESP 16; TEMP 36.8; O2SAT 98
[2020-03-17] MEDS: DAPTOmycin 500 MG in SODIUM CHLORIDE 0.9% 50 ML 100 ML IV (14:54)
[2020-03-18] MEDS: DAPTOmycin 500 MG in SODIUM CHLORIDE 0.9% 50 ML 100 ML IV (14:32)
[2020-03-18 14:38] VITALS: BP 125/77; PULSE 86; RESP 16; TEMP 36.9; O2SAT 98
[2020-03-19] MEDS: DAPTOmycin 500 MG in SODIUM CHLORIDE 0.9% 50 ML 100 ML IV (14:26)
[2020-03-19 14:31] LABS: Add Manual Diff / Slide Review NO; Basophils Absolute Auto 0 /uL (0-100); Basophils Percent Auto 0.5 % (0-2); Eosinophils Absolute Auto 100 /uL (0-450); Eosinophils Percent Auto 1.1 % (2-4); Hematocrit 25.6 % (36-46); Hemoglobin 8.6 g/dL (12.0-16.0); Lymphocytes Absolute Auto 800 /uL (1100-4500); Lymphocytes Percent Auto 10.6 % (25-40); Mean Corpuscular HGB Conc 33.8 % (30-36); Mean Corpuscular Hemoglobin 27.9 PG (26-34); Mean Corpuscular Volume 82.5 fL (80-100); Monocytes Absolute Auto 900 /uL (0-900); Neutrophils Absolute Auto 5800 /uL (1500-7000); Neutrophils Percent Auto 75.8 % (50-75); Platelet Count 487 X10^3/uL (150-400); Red Cell Distribution Width 16.5 % (11.6-14.8); White Blood Cell Count 7.6 X10^3/uL (4.5-11.0)
[2020-03-19 14:35] VITALS: BP 150/86; PULSE 85; RESP 20; TEMP 37.1; O2SAT 98
[2020-03-19 16:06] LABS: Alanine Aminotransferase 17 IU/L (<35); Albumin 3.4 g/dL (3.5-5.0); Albumin Globulin Ratio 0.8 (1.0-2.8); Alkaline Phosphatase 110 U/L (38-126); Aspartate Aminotransferase 24 IU/L (14-36); BUN Creatinine Ratio 19.3 (6-22); Bilirubin Total 0.3 mg/dL (0.2-1.3); Blood Urea Nitrogen 11 mg/dL (7-17); Calcium 8.8 mg/dL (8.4-10.2); Carbon Dioxide 24 mmol/L (22-32); Chloride 98 mmol/L (98-107); Estimated Glomerular Filt Rate > 60.0 mL/min (>60); Globulin 4.2 g/dL (1.7-4.1); Glucose 103 mg/dL (80-110); HEMOLYSIS < 15 (0-50); Sodium 131 mmol/L (137-145); Total Protein 7.6 g/dL (6.3-8.2)
[2020-03-20 05:09] LABS: IGA <5 mg/dL (87-352); IGG 1692 mg/dL (586-1602); IGM 64 mg/dL (26-217)
[2020-03-20] MEDS: DAPTOmycin 500 MG in SODIUM CHLORIDE 0.9% 50 ML 100 ML IV (14:29)
[2020-03-20 14:37] VITALS: BP 135/86; PULSE 90; RESP 20; TEMP 37.3; O2SAT 98
--- NOTE | 2020-03-20 14:38 | PC.NURSE ---
Pt arrived via home c/o being tired and feeling things are worse though she states he wbc is 7.8. Pt settled to room and Picc accessed per protocal.
[2020-03-21] MEDS: DAPTOmycin 500 MG in SODIUM CHLORIDE 0.9% 50 ML 100 ML IV (14:28)
[2020-03-22 14:25] VITALS: BP 130/81; PULSE 89; RESP 18; TEMP 36.6; O2SAT 98
[2020-03-22] MEDS: DAPTOmycin 500 MG in SODIUM CHLORIDE 0.9% 50 ML 100 ML IV (14:31)
--- NOTE | 2020-03-22 15:15 | PC.NURSE ---
Day Shift-OP Infusion Pt arrived to unit at 1425, settled into room 201, call light within reach. DRISS Brady PICC flushes well with brisk blood return, Dressing CDI, due to be changed 03/23, last date changed noted on dressing is 03/16. VSS, afebrile, pt states BP is a little high for her. Asymptomatic. IV ABX started per order, pt has her own heating pad, drink and snack on bedside table.
[2020-03-23] MEDS: DAPTOmycin 500 MG in SODIUM CHLORIDE 0.9% 50 ML 100 ML IV (14:32)
[2020-03-23 14:38] VITALS: BP 124/78; PULSE 84; RESP 16; TEMP 36.9; O2SAT 100
[2020-03-24] MEDS: DAPTOmycin 500 MG in SODIUM CHLORIDE 0.9% 50 ML 100 ML IV (14:32)
[2020-03-24 14:39] VITALS: BP 150/80; PULSE 83; RESP 18; TEMP 36.9; O2SAT 97
[2020-03-25] MEDS: DAPTOmycin 500 MG in SODIUM CHLORIDE 0.9% 50 ML 100 ML IV (14:53)
[2020-03-26] MEDS: DAPTOmycin 500 MG in SODIUM CHLORIDE 0.9% 50 ML 100 ML IV (14:35)
[2020-03-26 14:49] VITALS: BP 123/83; PULSE 89; RESP 18; TEMP 36.7; O2SAT 99
[2020-03-27 14:36] VITALS: BP 141/85; PULSE 78; RESP 20; TEMP 36.9; O2SAT 98
[2020-03-27] MEDS: DAPTOmycin 500 MG in SODIUM CHLORIDE 0.9% 50 ML 100 ML IV (14:36)
--- NOTE | 2020-03-27 16:10 | PC.NURSE ---
Pt completed infusion at approx 1545. Declined Hep flush as PICC is groshong and does not require Hep flush per policy and pt request. Pt left in stable condition with all personal belongings.
[2020-03-28] MEDS: DAPTOmycin 500 MG in SODIUM CHLORIDE 0.9% 50 ML 100 ML IV (14:28)
[2020-03-28 14:32] VITALS: BP 139/83; PULSE 88; RESP 18; TEMP 37.3; O2SAT 98
[2020-03-29] MEDS: DAPTOmycin 500 MG in SODIUM CHLORIDE 0.9% 50 ML 100 ML IV (14:29)
[2020-03-29 14:35] VITALS: BP 131/79; PULSE 78; RESP 18; TEMP 37.2; O2SAT 98
[2020-03-30] MEDS: DAPTOmycin 500 MG in SODIUM CHLORIDE 0.9% 50 ML 100 ML IV (14:34)
[2020-03-30 14:41] VITALS: BP 142/93; PULSE 84; RESP 18; TEMP 36.9; O2SAT 94
[2020-03-31] MEDS: DAPTOmycin 500 MG in SODIUM CHLORIDE 0.9% 50 ML 100 ML IV (14:40)
[2020-03-31 14:46] VITALS: BP 115/85; PULSE 83; RESP 16; TEMP 37.2; O2SAT 96
[2020-04-01 15:02] VITALS: BP 133/81; PULSE 74; RESP 16; TEMP 37.3; O2SAT 98
[2020-04-01] MEDS: DAPTOmycin 500 MG in SODIUM CHLORIDE 0.9% 50 ML 100 ML IV (15:02)
--- NOTE | 2020-04-01 16:05 | PC.NURSE ---
Pt infusion completed, PICC flushed per protocal D.C in stable condition
[2020-04-02] MEDS: DAPTOmycin 500 MG in SODIUM CHLORIDE 0.9% 50 ML 100 ML IV (14:44)
[2020-04-02 14:54] VITALS: BP 129/84; PULSE 74; RESP 18; TEMP 36.9; O2SAT 100
[2020-04-02 15:20] LABS: Add Manual Diff / Slide Review NO; Basophils Absolute Auto 0 /uL (0-100); Basophils Percent Auto 0.6 % (0-2); Eosinophils Absolute Auto 100 /uL (0-450); Eosinophils Percent Auto 1.4 % (2-4); Hematocrit 23.9 % (36-46); Hemoglobin 8.1 g/dL (12.0-16.0); Lymphocytes Absolute Auto 700 /uL (1100-4500); Lymphocytes Percent Auto 14.8 % (25-40); Mean Corpuscular HGB Conc 33.9 % (30-36); Mean Corpuscular Hemoglobin 27.8 PG (26-34); Mean Corpuscular Volume 82.1 fL (80-100); Monocytes Absolute Auto 400 /uL (0-900); Monocytes Percent Auto 8.8 % (3-14); Neutrophils Absolute Auto 3600 /uL (1500-7000); Neutrophils Percent Auto 74.4 % (50-75); Platelet Count 601 X10^3/uL (150-400); Red Blood Cell Count 2.92 X10^6/uL (4.0-5.2); Red Cell Distribution Width 17.3 % (11.6-14.8); White Blood Cell Count 4.9 X10^3/uL (4.5-11.0)
[2020-04-03 14:29] VITALS: BP 137/87; PULSE 81; RESP 14; TEMP 36.5
[2020-04-03] MEDS: SODIUM CHLORIDE 0.9% FLUSH 10 ML IV (14:34)
[2020-04-03] MEDS: DAPTOmycin 500 MG in SODIUM CHLORIDE 0.9% 50 ML 100 ML IV (14:34)
--- NOTE | 2020-04-03 16:08 | PC.NURSE ---
Infusion complete. PICC flushed with NS per protocol. Pt ambulated off unit independently in stable condition with PICC intact.
[2020-04-04] MEDS: DAPTOmycin 500 MG in SODIUM CHLORIDE 0.9% 50 ML 100 ML IV (14:38)
[2020-04-04] MEDS: SODIUM CHLORIDE 0.9% FLUSH 10 ML IV (14:39)
[2020-04-04 14:41] VITALS: BP 151/93; PULSE 68; RESP 17; TEMP 36.4
[2020-04-05 14:40] VITALS: BP 135/81; PULSE 77; RESP 16; TEMP 35.9; O2SAT 99
[2020-04-05] MEDS: DAPTOmycin 500 MG in SODIUM CHLORIDE 0.9% 50 ML 100 ML IV (14:50)
--- NOTE | 2020-04-05 14:55 | PC.NURSE ---
pt arrived via home for infusion set up in room PICC accessed per protocal.
[2020-04-05] MEDS: SODIUM CHLORIDE 0.9% FLUSH 10 ML IV (16:09)
--- NOTE | 2020-04-05 16:21 | PC.NURSE ---
patient completed infusion, left floor in stable condition, PICC assessed and is WNL, PICC flushed per protocol.
[2020-04-06] MEDS: DAPTOmycin 500 MG in SODIUM CHLORIDE 0.9% 50 ML 100 ML IV (15:16)
[2020-04-06 15:20] VITALS: BP 140/84; PULSE 75; RESP 16; O2SAT 98
[2020-04-07 14:42] VITALS: BP 144/88; PULSE 72; RESP 16; TEMP 36.7; O2SAT 99
[2020-04-07] MEDS: DAPTOmycin 500 MG in SODIUM CHLORIDE 0.9% 50 ML 100 ML IV (14:53)
[2020-04-08] MEDS: DAPTOmycin 500 MG in SODIUM CHLORIDE 0.9% 50 ML 100 ML IV (12:32)
[2020-04-08 12:38] VITALS: BP 133/91; PULSE 76; RESP 16; TEMP 36.7; O2SAT 98
[2020-04-09] MEDS: DAPTOmycin 500 MG in SODIUM CHLORIDE 0.9% 50 ML 100 ML IV (14:36)
[2020-04-09 14:41] VITALS: BP 154/77; PULSE 72; RESP 16; TEMP 37.2; O2SAT 100
[2020-04-09 15:38] VITALS: BP 133/81
[2020-04-10 14:35] VITALS: BP 137/90; PULSE 101; RESP 14; TEMP 36.6
[2020-04-10] MEDS: DAPTOmycin 500 MG in SODIUM CHLORIDE 0.9% 50 ML 100 ML IV (14:35)
[2020-04-11 14:21] VITALS: BP 139/80; PULSE 72; RESP 15; TEMP 36.8; O2SAT 97
[2020-04-11] MEDS: DAPTOmycin 500 MG in SODIUM CHLORIDE 0.9% 50 ML 100 ML IV (14:29)
[2020-04-12 14:12] VITALS: BP 137/83; PULSE 68; RESP 16; TEMP 36.7; O2SAT 98
[2020-04-12] MEDS: DAPTOmycin 500 MG in SODIUM CHLORIDE 0.9% 50 ML 100 ML IV (14:15)
[2020-04-12] MEDS: SODIUM CHLORIDE 0.9% FLUSH 10 ML IV (14:15)
[2020-04-13] MEDS: DAPTOmycin 500 MG in SODIUM CHLORIDE 0.9% 50 ML 100 ML IV (14:33)
[2020-04-13 14:43] VITALS: BP 138/77; PULSE 60; RESP 16; TEMP 36.7; O2SAT 100
[2020-04-14] MEDS: DAPTOmycin 500 MG in SODIUM CHLORIDE 0.9% 50 ML 100 ML IV (14:32)
[2020-04-14 14:34] VITALS: BP 145/83; PULSE 74; RESP 18; TEMP 36.9; O2SAT 99
[2020-04-15] MEDS: DAPTOmycin 500 MG in SODIUM CHLORIDE 0.9% 50 ML 100 ML IV (14:26)
[2020-04-15 14:42] VITALS: BP 132/86; PULSE 75; RESP 16; TEMP 37.2; O2SAT 99
[2020-04-16] MEDS: DAPTOmycin 500 MG in SODIUM CHLORIDE 0.9% 50 ML 100 ML IV (14:43)
[2020-04-16 14:58] VITALS: BP 126/82; PULSE 79; RESP 16; TEMP 36.6; O2SAT 98
[2020-04-17 14:24] VITALS: BP 147/87; PULSE 78; RESP 18; TEMP 36.8; O2SAT 97
[2020-04-17] MEDS: DAPTOmycin 500 MG in SODIUM CHLORIDE 0.9% 50 ML 100 ML IV (14:27)
[2020-04-17] MEDS: SODIUM CHLORIDE 0.9% FLUSH 10 ML IV ×2 (14:28→15:27)
[2020-04-18] MEDS: SODIUM CHLORIDE 0.9% FLUSH 10 ML IV (13:35)
[2020-04-18] MEDS: DAPTOmycin 500 MG in SODIUM CHLORIDE 0.9% 50 ML 100 ML IV (13:35)
[2020-04-18 13:42] VITALS: RESP 18; TEMP 36.6
[2020-04-19] MEDS: DAPTOmycin 500 MG in SODIUM CHLORIDE 0.9% 50 ML 100 ML IV (13:50)
[2020-04-19 13:55] VITALS: BP 138/86; PULSE 72; RESP 14; TEMP 36.3
[2020-04-20] MEDS: DAPTOmycin 500 MG in SODIUM CHLORIDE 0.9% 50 ML 100 ML IV (14:36)
[2020-04-20 14:48] VITALS: BP 138/81; PULSE 77; RESP 16; TEMP 36.8; O2SAT 98
[2020-04-21] MEDS: DAPTOmycin 500 MG in SODIUM CHLORIDE 0.9% 50 ML 100 ML IV (14:26)
[2020-04-21] MEDS: SODIUM CHLORIDE 0.9% FLUSH 10 ML IV (14:27)
[2020-04-21 14:37] VITALS: BP 147/88; PULSE 72; RESP 16; TEMP 37.1; O2SAT 99
[2020-04-22] MEDS: DAPTOmycin 500 MG in SODIUM CHLORIDE 0.9% 50 ML 100 ML IV (14:26)
[2020-04-22 14:32] VITALS: BP 142/85; PULSE 67; RESP 16; TEMP 36.7; O2SAT 98
[2020-04-29 10:31] LABS: C-Reactive Protein Quant 3.7 mg/dL (<1.0)
[2020-04-29 10:34] LABS: Add Manual Diff / Slide Review NO; Basophils Absolute Auto 0 /uL (0-100); Basophils Percent Auto 0.6 % (0-2); Eosinophils Absolute Auto 100 /uL (0-450); Eosinophils Percent Auto 1.5 % (2-4); Hematocrit 29.9 % (36-46); Hemoglobin 9.9 g/dL (12.0-16.0); Lymphocytes Absolute Auto 1000 /uL (1100-4500); Lymphocytes Percent Auto 22.5 % (25-40); Mean Corpuscular HGB Conc 33.3 % (30-36); Mean Corpuscular Hemoglobin 26.3 PG (26-34); Mean Corpuscular Volume 79.2 fL (80-100); Monocytes Absolute Auto 600 /uL (0-900); Monocytes Percent Auto 12.8 % (3-14); Neutrophils Absolute Auto 2700 /uL (1500-7000); Neutrophils Percent Auto 62.6 % (50-75); Platelet Count 430 X10^3/uL (150-400); Red Blood Cell Count 3.78 X10^6/uL (4.0-5.2); Red Cell Distribution Width 17.6 % (11.6-14.8); White Blood Cell Count 4.4 X10^3/uL (4.5-11.0)
[2020-04-29 10:48] LABS: Erythrocyte Sedimentation Rate 81 MM/HR (0-20)
[2020-05-03 14:01] LABS: Free Kappa Lt Chains, Serum 26.4
[2020-05-03 14:02] LABS: Free Lambda Lt Chains,Serum 19.5
[2020-05-12 10:57] LABS: Add Manual Diff / Slide Review NO; Basophils Absolute Auto 0 /uL (0-100); Basophils Percent Auto 0.7 % (0-2); Eosinophils Absolute Auto 100 /uL (0-450); Eosinophils Percent Auto 1.8 % (2-4); Hematocrit 30.5 % (36-46); Hemoglobin 9.9 g/dL (12.0-16.0); Lymphocytes Absolute Auto 1200 /uL (1100-4500); Lymphocytes Percent Auto 26.2 % (25-40); Mean Corpuscular HGB Conc 32.6 % (30-36); Mean Corpuscular Hemoglobin 25.8 PG (26-34); Mean Corpuscular Volume 79.3 fL (80-100); Monocytes Absolute Auto 600 /uL (0-900); Monocytes Percent Auto 12.8 % (3-14); Neutrophils Absolute Auto 2600 /uL (1500-7000); Neutrophils Percent Auto 58.5 % (50-75); Platelet Count 398 X10^3/uL (150-400); Red Blood Cell Count 3.84 X10^6/uL (4.0-5.2); Red Cell Distribution Width 17.9 % (11.6-14.8); White Blood Cell Count 4.5 X10^3/uL (4.5-11.0)
[2020-05-12 11:11] LABS: C-Reactive Protein Quant 3.1 mg/dL (<1.0)
[2020-05-12 11:25] LABS: Erythrocyte Sedimentation Rate 78 MM/HR (0-20)
--- NOTE | 2020-05-13 10:19 | ONC.SCHED ---
Order requested for PICC line removal from Dr. Magallanes's office. Pt. scheduled tomorrow.
[2020-05-14] MEDS: NEOMYCIN/POLYMYXIN/BACITRA UD OINT 1 EACH TOP (11:26)
--- NOTE | 2020-05-14 11:40 | PC.NURSE ---
PICC line dc'd with tip intact. pt laying flat for 30min.
== END ==
PROVIDERS: Internal Medicine; Family Provider Family Medicine; PCP Family Medicine; Referring Provider Family Medicine; Visit Provider Family Medicine
DX: Z45.2 Encounter for adjustment and management of vascular access device (principal); G06.2 Extradural and subdural abscess, unspecified
CPT/HCPCS: 36592; 74183; 80053; 82728; 82784; 83550; 83883; 84155; 84156; 85025; 85651; 86140; 96365; 96523; A9579; J0878; J1642

== ENCOUNTER → 2020-05-26 06:53 | Outpatient (CLI) | payer OTHER, SELFPAY ==
--- NOTE | 2020-05-26 08:32 | DI.CT.S_ITS ---
PROCEDURE: CT LUMBAR SPINE WO CON INDICATIONS: Discitis, unspecified, lumbar region TECHNIQUE: Noncontrast 3 mm thick sections acquired from the T12 level to the sacrum. Sagittal and coronal reformats were constructed. For radiation dose reduction, the following was used: automated exposure control. COMPARISON: [facility], MR, MR LUMBAR SPINE WO/W CON, 03/25/2020, 8:11. FINDINGS: Image quality: Excellent. Bones: There is straightening of the usual lumbar lordosis from T12 through L3. Complete loss of intervertebral disc space at L1-L2 and L2-L3 with mixed lytic and sclerotic endplate changes which extend into the vertebral bodies at these levels. There is an erosive appearance to the endplate changes with loss of the cortices of the opposing endplates. Appearance is overall consistent with discitis/osteomyelitis. Correlation with the comparison MRI (not yet reported) demonstrates fluid in the intervertebral disc spaces with avid enhancement of the intervertebral disc spaces and adjacent cortices, along with both prevertebral and epidural edema and enhancement. Seen only on the MRI, there appear to be peripherally enhancing ventral epidural fluid collections suspicious for epidural abscesses. IMPRESSION: Findings consistent with discitis/osteomyelitis involving the L 1, L2, and L3 vertebral bodies and intervertebral disc spaces with MRI evidence of ventral epidural extension and ventral epidural abscesses. Dictated by: Eliazar Santiago M.D. on 05/26/2020 at 8:40 Approved by: Eliazar Santiago M.D. on 05/26/2020 at 8:46
== END ==
PROVIDERS: Family Provider Family Medicine; PCP Family Medicine; Referring Provider Physician Assistant; Visit Provider Physician Assistant
DX: M46.46 Discitis, unspecified, lumbar region (principal); G06.1 Intraspinal abscess and granuloma
CPT/HCPCS: 72131

== ENCOUNTER 2020-07-02 00:34 | Emergency (ER) | payer OTHER, SELFPAY ==
[2020-07-02 00:38] VITALS: BP 138/77; PULSE 81; RESP 17; TEMP 37.4; O2SAT 100; BMI 24.7
--- NOTE | 2020-07-02 01:06 | ED_ITS ---
HPI - Back Pain/Injury General Chief Complaint: Back Pain/Injury Stated Complaint: severe back pain Time Seen by Provider: 07/02/20 00:52 Source: patient History of Present Illness HPI Narrative: 65-year-old woman with history of multiple myeloma and recent epidural abscess. Was having back pain and low-grade fevers in February treated with a couple of courses of Levaquin with pain improving with the antibiotic courses but then returning period which she had recurrent episodes of fever leukocytosis and back pain an MRI was performed which showed an L1 epidural abscess. She was eventually treated with 8 weeks of IV daptomycin which ended in April. She was seen at the [facility] in follow-up with biopsy done 10 days ago to confirm absence of infection. Patient reports that biopsy results show no growth. Over the last 24 hours she has had recurrent fevers in the setting of ibuprofen and Tylenol for pain control, increasing back pain with spasm and over the last 12 hours is noticing weakness in size bilaterally and more urinary hesitancy. She has a slight cough nonproductive cough that is dramatically exacerbating the pain, spasm, and radicular component each time she has any type of coughing. Related Data Home Medications Medication Instructions Recorded Confirmed bupropion HCl [Wellbutrin SR] 150 mg PO QDAY #0 02/16/12 02/18/20 citalopram 20 mg PO QDAY #0 02/16/12 02/18/20 [PROBIOTIC] 1 cap PO BID #0 02/04/17 02/18/20 [VIT B/C/FOLIC ACID] 1 tab PO DAILY #0 02/04/17 02/18/20 anastrozole 1 mg PO QDAY #0 02/04/17 02/18/20 calcium citrate-vitamin D3 1 tab PO DAILY #0 02/04/17 02/18/20 cholecalciferol (vitamin D3) 2,000 unit PO DAILY #0 02/04/17 02/18/20 [Vitamin D3] cyanocobalamin (vitamin B-12) 1,000 mcg SUBCUT DAILY #0 02/04/17 02/18/20 vitamin E 400 unit PO DAILY #0 02/04/17 02/18/20 Previous Rx's Medication Instructions Recorded acyclovir 400 mg PO DAILY #30 tab 02/24/20 hydrocodone-acetaminophen 1 tab PO Q6H PRN #42 tab 02/24/20 Allergies Allergy/AdvReac Type Severity Reaction Status Date / Time amoxicillin [AMOXICILLIN] Allergy Unknown Verified 02/22/20 17:28 azithromycin [AZITHROMYCIN] Allergy Unknown Verified 02/22/20 17:28 clarithromycin Allergy Unknown Verified 02/22/20 17:28 [CLARITHROMYCIN] cyclobenzaprine Allergy Unknown Verified 02/22/20 17:28 [From FLEXERIL] erythromycin base Allergy Unknown Verified 02/22/20 17:28 [ERYTHROMYCIN BASE] etodolac [From LODINE] Allergy Unknown Verified 02/22/20 17:28 Sulfa (Sulfonamide Allergy Unknown Verified 02/22/20 17:28 Antibiotics) Review of Systems Review of Systems Narrative: Pertinent positive and negative findings as per HPI Remainder of review of systems is otherwise unremarkable for ENT: No sore throat, neck pain, ear pain CV: Chest pain, palpitations, dyspnea on exertion Respiratory: Cough, wheeze, dyspnea GI: Nausea, vomiting, diarrhea, change in bowel habits, black or bloody stools : Dysuria, hematuria, flank pain Skin: Rashes, nonhealing lesions Neuro: Syncope, dizziness Patient History Medical History (Updated 07/02/20 @ 03:32 by Asha Bailey MD) Epidural abscess (Acute) Multiple myeloma (Acute) Social History household members: spouse Smoking Status: Never smoker Smoking Status: Never smoker alcohol intake frequency: holidays/special occasions only Substance Use Type: does not use Exam Narrative Exam Narrative: General: Healthy appearing, moderate distress with any movement. Able to give a complete and coherent history. Well-nourished well-developed HEENT: Moist mucous membranes, normal sclera with reactive pupils, Neck: No JVD, supple Respiratory: Lungs are clear to auscultation, no wheezing no rales no rhonchi. Full and symmetrical air movement Cardiac: Regular rate and rhythm no murmurs no bruits Abdomen: Soft nontender good bowel tones, no flank pain Skin: Warm and dry, no rashes Neurologic: Weakness to the anterior thighs bilaterally, no numbness, tenderness along the lumbar spine, small puncture wound from recent biopsy left lateral lumbar spine healing nicely with no so seated redness Extremities: No trauma, well perfused Psych: Cooperative, appropriate insight and affect Initial Vital Signs Initial Vital Signs: Vital Signs Temperature 99.3 F 07/02/20 00:38 Pulse Rate 81 07/02/20 00:38 Respiratory Rate 17 07/02/20 00:38 Blood Pressure 138/77 07/02/20 00:38 Pulse Oximetry 100 07/02/20 00:38 Scores ABCD2 Citation: Lancet. 2006Nov 18;369(1811):916-54. Validation and refinement of scores to predict very early stroke risk after transient ischaemic attack. Cassie SC1, oJse PM, Nydia MN, Jero MF, Paulie JS, Jordan AL, Duke S. Course Orders Ordered: ED Orders 07/02/20 00:50 Urinalysis and Microscopic Stat 07/02/20 01:00 C-Reactive Protein Quant Stat Complete Blood Count AUTO DIFF Stat Comprehensive Metabolic Panel Stat 07/02/20 01:43 Blood Culture Stat Discontinued Medications Ketorolac Tromethamine (Toradol) 15 mg IV NOW ONE Stop: 07/02/20 03:35 Last Admin: 07/02/20 03:40 Dose: 15 mg Documented by: MMCFARL Oxycodone HCl (Percolone) 5 mg PO NOW ONE Stop: 07/02/20 01:35 Last Admin: 07/02/20 01:42 Dose: 5 mg Documented by: MMCFARL Oxycodone/Acetaminophen (Percocet 5/325) 1 tab PO NOW ONE Stop: 07/02/20 03:35 Last Admin: 07/02/20 05:02 Dose: 1 tab Documented by: MMCFARL Vital Signs Vital signs: Vital Signs - 8 hr 07/02/20 00:38 07/02/20 02:26 07/02/20 04:49 Temperature 99.3 F Pulse Rate 81 89 74 Respiratory Rate 17 18 Blood Pressure 138/77 118/70 148/84 H Pulse Oximetry 100 99 100 MDM - Back Pain/Injury Medical Records Attestation: I reviewed the patient's medical records. Lab Data Attestation: I reviewed the patient's lab results. Result diagrams: 07/02/20 01:00 07/02/20 01:00 Labs: Lab Results 07/02/20 07/02/20 07/02/20 Range/Units 00:50 01:00 01:00 WBC 7.7 (4.5-11.0) X10^3/uL RBC 3.71 L (4.0-5.2) X10^6/uL Hgb 9.8 L (12.0-16.0) g/dL Hct 28.8 L (36-46) % MCV 77.8 L (80-100) fL MCH 26.4 (26-34) PG MCHC 34.0 (30-36) % RDW 17.5 H (11.6-14.8) % Plt Count 404 H (150-400) X10^3/uL Neut % (Auto) 76.5 H (50-75) % Lymph % (Auto) 11.0 L (25-40) % Rabun % (Auto) 11.5 (3-14) % Eos % (Auto) 0.7 L (2-4) % Baso % (Auto) 0.3 (0-2) % Neut # (Auto) 5900 (8209-7923) /uL Lymph # (Auto) 800 L (3930-6482) /uL Rabun # (Auto) 900 (0-900) /uL Eos # (Auto) 100 (0-450) /uL Baso # (Auto) 0 (0-100) /uL Sodium 122 L (137-145) mmol/L Potassium 3.6 (3.4-5.1) mmol/L Chloride 85 L (98-107) mmol/L Carbon Dioxide 28 (22-32) mmol/L BUN 14 (7-17) mg/dL Creatinine 0.54 (0.52-1.04) mg/dL Estimated GFR > 60.0 (>60) mL/min BUN/Creatinine Ratio 25.9 H (6-22) Glucose 122 H (80-110) mg/dL Calcium 8.7 (8.4-10.2) mg/dL Total Bilirubin 0.3 (0.2-1.3) mg/dL AST 31 (14-36) IU/L ALT 29 (<35) IU/L Alkaline Phosphatase 119 (38-126) U/L C-Reactive Protein 11.7 H (<1.0) mg/dL Total Protein 8.1 (6.3-8.2) g/dL Albumin 3.9 (3.5-5.0) g/dL Globulin 4.2 H (1.7-4.1) g/dL Albumin/Globulin Ratio 0.9 L (1.0-2.8) Urine Color Yellow Urine Appearance Clear Urine pH 6.5 (4.5-8.0) Ur Specific [place] <=1.005 (1.000-1.035) Urine Protein Negative (Negative) Urine Glucose (UA) Negative (Negative) g/dL Urine Ketones Negative (NEGATIVE) Urine Occult Blood 1+ H (Negative) Urine Nitrate Negative (Negative) Urine Bilirubin Negative (NEGATIVE) Urine Urobilinogen 0.2 (0.2) E.U./dL Ur Leukocyte Esterase Negative (NEGATIVE) Urine RBC 0-1/hpf (0-5/HPF) Urine WBC None seen (0-5/HPF) Ur Squamous Epith Cells 0-1 /hpf (0-5/HPF) Urine Bacteria None seen (None) Ur Culture Indicated? Cult not indicated Urine Dip Bedside Urine Glucose Negative Bedside Urine Bilirubin - Negative Bedside Urine Ketone - Negative Urine Specific [place] 1.010 Bedside Urine Occult Blood + Bedside Urine pH 6.0 Bedside Urine Protein - Negative Bedside Urine Urobilinogen - Negative Bedside Urine Nitrite - Negative Bedside Urine Leukocytes - Negative Esterase MDM Narrative Medical decision making narrative: 65-year-old woman presents with recurrent worsening lumbar spine pain similar to that with initial diagnosis of her epidural abscess with weakness in the proximal thighs, urinary hesitancy and low-grade fevers with severe pain and spasm worsening with any movement. Ten days post spinal abscess site biopsy. 2:05 [facility] transfer center phone call to collect information 3:20 pain is still present but somewhat better controlled after the addition of 5 mg of oral oxycodone. Labs reveal no significant leukocytosis, mild recurrent hyponatremia at 1:22 a.m. and significantly elevated C reactive protein at 11.7. Case is reviewed with Dr. Puneet Garza, ortho spine surgery at [facility]. Apparently the case was reviewed by spine surgery at the [facility] who felt that she would be better served by the spine team at [facility]. No imaging has been done yet (MRI will be available until 7:[address] Garza has recommended no antibiotics until imaging can be done and transfer to [facility] through the emergency department. S transport is being arranged. Discharge Plan Departure Patient Disposition: [facility] Clinical Impression: Epidural abscess Acute back pain with sciatica Qualifiers: Laterality: unspecified laterality Qualified Code(s): M54.40 - Lumbago with sciatica, unspecified side Discharge Date/Time: 07/02/20 05:05 Prescriptions: No Action bupropion HCl [Wellbutrin SR] 150 MG tablet extended release 12 hr 150 mg PO QDAY Qty: 0 RF: 0 citalopram 20 MG tablet 20 mg PO QDAY Qty: 0 RF: 0 anastrozole 1 MG tablet 1 mg PO QDAY Qty: 0 RF: 0 calcium citrate-vitamin D3 315 MG/200 IU tablet 1 tab PO DAILY Qty: 0 RF: 0 cholecalciferol (vitamin D3) [Vitamin D3] 2,000 UNIT capsule 2,000 unit PO DAILY Qty: 0 RF: 0 cyanocobalamin (vitamin B-12) 1,000 MCG/1 ML solution 1,000 mcg SUBCUT DAILY Qty: 0 RF: 0 [VIT B/C/FOLIC ACID] 1 tab PO DAILY Qty: 0 RF: 0 vitamin E 400 UNIT capsule 400 unit PO DAILY Qty: 0 RF: 0 [PROBIOTIC] 1 cap PO BID Qty: 0 RF: 0 acyclovir 400 mg Tablet 400 mg PO DAILY Qty: 30 RF: 0 hydrocodone-acetaminophen 5-325 mg tablet 1 tab PO Q6H PRN (Reason: pain) Qty: 42 RF: 0 Referrals: Ari Magallanes MD [Primary Care Provider] -
[2020-07-02] MEDS: OXYCODONE IR 5 MG TABLET PO (01:42)
[2020-07-02 01:46] LABS: Add Manual Diff / Slide Review NO; Basophils Absolute Auto 0 /uL (0-100); Basophils Percent Auto 0.3 % (0-2); Eosinophils Absolute Auto 100 /uL (0-450); Eosinophils Percent Auto 0.7 % (2-4); Hematocrit 28.8 % (36-46); Hemoglobin 9.8 g/dL (12.0-16.0); Lymphocytes Absolute Auto 800 /uL (1100-4500); Mean Corpuscular Hemoglobin 26.4 PG (26-34); Mean Corpuscular Volume 77.8 fL (80-100); Monocytes Absolute Auto 900 /uL (0-900); Monocytes Percent Auto 11.5 % (3-14); Neutrophils Absolute Auto 5900 /uL (1500-7000); Neutrophils Percent Auto 76.5 % (50-75); Platelet Count 404 X10^3/uL (150-400); Red Blood Cell Count 3.71 X10^6/uL (4.0-5.2); Red Cell Distribution Width 17.5 % (11.6-14.8); White Blood Cell Count 7.7 X10^3/uL (4.5-11.0)
[2020-07-02 01:51] LABS: Alanine Aminotransferase 29 IU/L (<35); Albumin 3.9 g/dL (3.5-5.0); Albumin Globulin Ratio 0.9 (1.0-2.8); Alkaline Phosphatase 119 U/L (38-126); Aspartate Aminotransferase 31 IU/L (14-36); BUN Creatinine Ratio 25.9 (6-22); Bilirubin Total 0.3 mg/dL (0.2-1.3); Blood Urea Nitrogen 14 mg/dL (7-17); Calcium 8.7 mg/dL (8.4-10.2); Carbon Dioxide 28 mmol/L (22-32); Chloride 85 mmol/L (98-107); Estimated Glomerular Filt Rate > 60.0 mL/min (>60); Globulin 4.2 g/dL (1.7-4.1); Glucose 122 mg/dL (80-110); HEMOLYSIS < 15 (0-50); Potassium 3.6 mmol/L (3.4-5.1); Sodium 122 mmol/L (137-145); Total Protein 8.1 g/dL (6.3-8.2)
[2020-07-02 02:03] LABS: C-Reactive Protein Quant 11.7 mg/dL (<1.0)
[2020-07-02 02:07] LABS: Bacteria Urine None Seen; WBC Urine None Seen (0-5/HPF)
[2020-07-02 02:09] LABS: Appearance Urine UA CLEAR; Bilirubin Urine UA NEGATIVE (NEGATIVE); Color Urine UA YELLOW; Glucose Urine UA NEGATIVE (Negative); Ketones Urine UA NEGATIVE (NEGATIVE); Leukocyte Esterase Urine UA NEGATIVE (NEGATIVE); Nitrite Urine UA NEGATIVE (Negative); Occult Blood Urine UA 1+ (Negative); Protein Urine UA NEGATIVE (Negative); Specific Gravity Urine UA <=1.005 (1.000-1.035); Urobilinogen Urine UA 0.2 E.U./dL (0.2)
[2020-07-02 02:15] LABS: Culture Indicated Urine Cult Not Indicated; RBC Urine 0-1/HPF (0-5/HPF); Squamous Epithelial Cell Urine 0-1 /HPF (0-5/HPF); pH Urine UA 6.5 (4.5-8.0)
[2020-07-02 02:26] VITALS: BP 118/70; PULSE 89; RESP 18; O2SAT 99
[2020-07-02] MEDS: KETOROLAC 60 MG/2 ML VIAL 15 MG IV (03:40)
[2020-07-02 04:49] VITALS: BP 148/84; PULSE 74; O2SAT 100
[2020-07-02] MEDS: OXYCODONE/ACETAMINOPHEN 5/325 TABLET 1 TAB PO (05:02)
== END 2020-07-02 05:05 | disposition short-term general hospital (02) ==
PROVIDERS: Emergency Provider Emergency Medicine; Family Provider Family Medicine; PCP Family Medicine
DX: G06.2 Extradural and subdural abscess, unspecified (principal); M54.40 Lumbago with sciatica, unspecified side; R50.9 Fever, unspecified
CPT/HCPCS: 36415; 80053; 81001; 81003; 85025; 86140; 87040; 96374; 99284; J1885

== ENCOUNTER → 2020-07-09 10:45 | Outpatient (CLI) | payer OTHER, SELFPAY ==
[2020-07-09 11:17] LABS: Estimated Glomerular Filt Rate > 60.0 mL/min (>60)
[2020-07-09 11:22] LABS: Vancomycin Trough 7.1 ug/mL (10-20)
== END ==
PROVIDERS: Family Provider Family Medicine; PCP Family Medicine; Referring Provider Physician Assistant; Visit Provider Physician Assistant
DX: M86.9 Osteomyelitis, unspecified (principal)
CPT/HCPCS: 80202; 82565

== ENCOUNTER → 2020-07-12 11:02 | Outpatient (ROUT) | payer OTHER, SELFPAY ==
[2020-07-12 11:08] LABS: Add Manual Diff / Slide Review NO; Basophils Absolute Auto 100 /uL (0-100); Basophils Percent Auto 1.2 % (0-2); Eosinophils Absolute Auto 300 /uL (0-450); Eosinophils Percent Auto 5.7 % (2-4); Hematocrit 28.3 % (36-46); Hemoglobin 9.2 g/dL (12.0-16.0); Lymphocytes Absolute Auto 1000 /uL (1100-4500); Lymphocytes Percent Auto 22.1 % (25-40); Mean Corpuscular HGB Conc 32.4 % (30-36); Mean Corpuscular Hemoglobin 26.1 PG (26-34); Mean Corpuscular Volume 80.5 fL (80-100); Monocytes Absolute Auto 600 /uL (0-900); Monocytes Percent Auto 12.1 % (3-14); Neutrophils Absolute Auto 2700 /uL (1500-7000); Neutrophils Percent Auto 58.9 % (50-75); Platelet Count 510 X10^3/uL (150-400); Red Blood Cell Count 3.51 X10^6/uL (4.0-5.2); Red Cell Distribution Width 18.4 % (11.6-14.8); White Blood Cell Count 4.6 X10^3/uL (4.5-11.0)
[2020-07-12 11:21] LABS: BUN Creatinine Ratio 8.3 (6-22); Blood Urea Nitrogen 4 mg/dL (7-17); Calcium 8.8 mg/dL (8.4-10.2); Carbon Dioxide 23 mmol/L (22-32); Chloride 102 mmol/L (98-107); Estimated Glomerular Filt Rate > 60.0 mL/min (>60); Glucose 155 mg/dL (80-110); HEMOLYSIS < 15 (0-50); Potassium 3.8 mmol/L (3.4-5.1); Sodium 137 mmol/L (137-145)
[2020-07-12 11:26] LABS: Vancomycin Trough 11.4 ug/mL (10-20)
== END ==
PROVIDERS: Family Provider Family Medicine; PCP Family Medicine; Visit Provider Physician Assistant
DX: M86.9 Osteomyelitis, unspecified (principal)
CPT/HCPCS: 80048; 80202; 85025

== ENCOUNTER → 2020-07-20 10:09 | Outpatient (CLI) | payer OTHER, SELFPAY ==
[2020-07-20 10:57] LABS: Add Manual Diff / Slide Review NO; Basophils Absolute Auto 100 /uL (0-100); Basophils Percent Auto 1.2 % (0-2); Eosinophils Absolute Auto 200 /uL (0-450); Eosinophils Percent Auto 4.7 % (2-4); Hematocrit 30.2 % (36-46); Lymphocytes Absolute Auto 800 /uL (1100-4500); Mean Corpuscular HGB Conc 33.1 % (30-36); Mean Corpuscular Volume 81.5 fL (80-100); Monocytes Absolute Auto 700 /uL (0-900); Monocytes Percent Auto 15.5 % (3-14); Neutrophils Absolute Auto 2600 /uL (1500-7000); Neutrophils Percent Auto 59.6 % (50-75); Platelet Count 421 X10^3/uL (150-400); Red Cell Distribution Width 19.1 % (11.6-14.8); White Blood Cell Count 4.4 X10^3/uL (4.5-11.0)
[2020-07-20 11:32] LABS: BUN Creatinine Ratio 21.5 (6-22); Blood Urea Nitrogen 14 mg/dL (7-17); Calcium 8.8 mg/dL (8.4-10.2); Carbon Dioxide 24 mmol/L (22-32); Chloride 102 mmol/L (98-107); Estimated Glomerular Filt Rate > 60.0 mL/min (>60); Glucose 116 mg/dL (80-110); HEMOLYSIS < 15 (0-50); Potassium 4.2 mmol/L (3.4-5.1); Sodium 136 mmol/L (137-145)
[2020-07-20 11:46] LABS: Vancomycin Trough 13.5 ug/mL (10-20)
== END ==
PROVIDERS: Family Provider Family Medicine; PCP Family Medicine; Referring Provider Physician Assistant; Visit Provider Physician Assistant
DX: M86.9 Osteomyelitis, unspecified (principal)
CPT/HCPCS: 80048; 80202; 85025

== ENCOUNTER → 2020-07-27 10:25 | Outpatient (ROUT) | payer OTHER, SELFPAY ==
[2020-07-27 10:31] LABS: Add Manual Diff / Slide Review NO; Basophils Absolute Auto 0 /uL (0-100); Basophils Percent Auto 1.1 % (0-2); Eosinophils Absolute Auto 200 /uL (0-450); Eosinophils Percent Auto 4.2 % (2-4); Hematocrit 32.7 % (36-46); Hemoglobin 10.8 g/dL (12.0-16.0); Lymphocytes Absolute Auto 700 /uL (1100-4500); Lymphocytes Percent Auto 17.8 % (25-40); Mean Corpuscular Hemoglobin 27.1 PG (26-34); Monocytes Absolute Auto 600 /uL (0-900); Monocytes Percent Auto 13.8 % (3-14); Neutrophils Absolute Auto 2600 /uL (1500-7000); Neutrophils Percent Auto 63.1 % (50-75); Platelet Count 323 X10^3/uL (150-400); Red Blood Cell Count 3.99 X10^6/uL (4.0-5.2); Red Cell Distribution Width 19.1 % (11.6-14.8); White Blood Cell Count 4.1 X10^3/uL (4.5-11.0)
[2020-07-27 10:49] LABS: Erythrocyte Sedimentation Rate 55 MM/HR (0-20)
[2020-07-27 11:07] LABS: BUN Creatinine Ratio 13.2 (6-22); Blood Urea Nitrogen 9 mg/dL (7-17); C-Reactive Protein Quant 1.6 mg/dL (<1.0); Calcium 9.2 mg/dL (8.4-10.2); Carbon Dioxide 26 mmol/L (22-32); Chloride 104 mmol/L (98-107); Estimated Glomerular Filt Rate > 60.0 mL/min (>60); Glucose 135 mg/dL (80-110); HEMOLYSIS < 15 (0-50); Potassium 4.2 mmol/L (3.4-5.1); Sodium 138 mmol/L (137-145)
[2020-07-27 11:11] LABS: Vancomycin Trough 14.4 ug/mL (10-20)
== END ==
PROVIDERS: Family Provider Family Medicine; PCP Family Medicine; Visit Provider Physician Assistant
DX: M86.9 Osteomyelitis, unspecified (principal)
CPT/HCPCS: 80048; 80202; 85025; 85651; 86140

== ENCOUNTER → 2020-08-21 15:50 | Outpatient (CLI) | payer OTHER, SELFPAY ==
[2020-08-05 15:10] VITALS: BMI 24.0
--- NOTE | 2020-08-21 | DI.RAD.S_ITS ---
PROCEDURE: XR FEMUR RT MIN 2V INDICATIONS: RIGHT THIGH PAIN TECHNIQUE: 2 views of the femur were acquired. COMPARISON: None. FINDINGS: Bones: No fractures or dislocations. No suspicious bony lesions. Soft tissues: No suspicious soft tissue calcifications or masses. IMPRESSION: No acute radiographic findings. If there is continued pain, followup exam or additional imaging such as MRI or CT could be performed for further assessment. Dictated by: Evelyn Leavitt M.D. on 08/21/2020 at 15:50 Approved by: Evelyn Leavitt M.D. on 08/21/2020 at 15:51
== END ==
PROVIDERS: Family Provider Family Medicine; PCP Family Medicine; Referring Provider Family Medicine; Visit Provider Family Medicine
DX: M79.651 Pain in right thigh (principal)
CPT/HCPCS: 73552

== ENCOUNTER → 2020-09-04 16:00 | Outpatient (CLI) | payer OTHER, SELFPAY ==
[2020-08-05 15:10] VITALS: BMI 24.0
[2020-09-04 16:54] LABS: Add Manual Diff / Slide Review NO; Basophils Absolute Auto 0 /uL (0-100); Basophils Percent Auto 0.4 % (0-2); Eosinophils Absolute Auto 0 /uL (0-450); Eosinophils Percent Auto 0.4 % (2-4); Hematocrit 31.5 % (36-46); Hemoglobin 10.5 g/dL (12.0-16.0); Lymphocytes Absolute Auto 800 /uL (1100-4500); Lymphocytes Percent Auto 9.9 % (25-40); Mean Corpuscular HGB Conc 33.3 % (30-36); Mean Corpuscular Hemoglobin 27.8 PG (26-34); Mean Corpuscular Volume 83.5 fL (80-100); Monocytes Absolute Auto 900 /uL (0-900); Monocytes Percent Auto 10.6 % (3-14); Neutrophils Absolute Auto 6700 /uL (1500-7000); Neutrophils Percent Auto 78.7 % (50-75); Platelet Count 284 X10^3/uL (150-400); Red Blood Cell Count 3.77 X10^6/uL (4.0-5.2); Red Cell Distribution Width 17.2 % (11.6-14.8); White Blood Cell Count 8.6 X10^3/uL (4.5-11.0)
[2020-09-04 18:10] LABS: Erythrocyte Sedimentation Rate 56 MM/HR (0-20)
[2020-09-04 18:11] LABS: High Sensitivity CRP - Cardiac > 15.0 mg/L (1.0-3.0)
== END ==
PROVIDERS: Family Provider Family Medicine; PCP Family Medicine
DX: G06.2 Extradural and subdural abscess, unspecified (principal); R50.9 Fever, unspecified
CPT/HCPCS: 36415; 85025; 85651; 86140

== ENCOUNTER 2020-09-04 20:52 | Emergency (ER) | payer OTHER, SELFPAY ==
[2020-08-05 15:10] VITALS: BMI 24.0
[2020-09-04 20:55] VITALS: BP 121/73; PULSE 117; RESP 20; TEMP 38.8; O2SAT 97; BMI 24.7
--- NOTE | 2020-09-04 21:02 | ED_ITS ---
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 Epidural abscess issues began in February of 2020. She has had multiple courses of IV antibiotics as well as oral antibiotics. Recurrent epidural abscess in June with I and D and bone debridement again at [facility] and subsequent 4 weeks of IV vancomycin and followed by p.[facility]. Through this entire experience eats time she stopped antibiotics she has had recurrent symptoms within 3-4 days. Levaquin was discontinued 5 days ago and within 3 days she was noticing some cognitive cloudiness and general malaise. Within the last 2 days she has noticed fevers increasing in today was as high as 102.6 with associated chills and rigors. She has no other localizing infectious Disease signs or symptoms, no cough no sore throat, no ear pain, no abdominal pain, no dysuria, no vomiting no diarrhea, no dyspnea. She also has no specific back pain, no muscle spasm, no urinary hesitancy says she has had with previous epidural abs cess. Related Data Home Medications Medication Instructions Recorded Confirmed bupropion HCl [Wellbutrin SR] 150 mg PO QDAY #0 02/16/12 08/07/20 citalopram 20 mg PO QDAY #0 02/16/12 08/07/20 anastrozole 1 mg PO QDAY #0 02/04/17 08/07/20 acetaminophen 500 mg tablet 1,000 mg PO .q8 PRN tab 08/07/20 08/07/20 gabapentin 600 mg tablet 600 mg PO DAILY 08/07/20 08/07/20 levofloxacin 750 mg tablet 750 mg PO DAILY 08/07/20 08/07/20 methocarbamol 500 mg tablet 500 mg PO BEDTIME 08/07/20 08/07/20 Previous Rx's Medication Instructions Recorded acyclovir 400 mg PO DAILY #30 tab 02/24/20 Allergies Allergy/AdvReac Type Severity Reaction Status Date / Time amoxicillin [AMOXICILLIN] Allergy Unknown Verified 08/07/20 14:10 azithromycin [AZITHROMYCIN] Allergy Unknown Verified 08/07/20 14:10 clarithromycin Allergy Unknown Verified 08/07/20 14:10 [CLARITHROMYCIN] cyclobenzaprine Allergy Unknown Verified 08/07/20 14:10 [From FLEXERIL] erythromycin base Allergy Unknown Verified 08/07/20 14:10 [ERYTHROMYCIN BASE] etodolac [From LODINE] Allergy Unknown Verified 08/07/20 14:10 Penicillins Allergy Unknown Verified 08/07/20 14:10 Sulfa (Sulfonamide Allergy Unknown Verified 08/07/20 14:10 Antibiotics) Review of Systems Review of Systems Narrative: Remainder of review of systems including constitutional, ENT, cardi ovascular, respiratory, GI, , musculoskeletal, skin, neurologic and psychiatric systems reviewed and are unremarkable except as noted in HPI. Patient History Medical History (Updated 09/05/20 @ 03:13 by Asha Bailey MD) Epidural abscess (Acute) Multiple myeloma (Acute) Osteomyelitis of lumbar spine (Acute) Surgical History Hx of cholecystectomy (Acute) Hx of laminectomy (Acute) Hx of lumpectomy (Acute) Hx of oral surgery (Acute) Family History Father Hypertension Grandmother Gallstones Diabetes mellitus Sister Gallstones Mother Multiple myeloma Grandfather Cancer Social History household members: spouse Smoking Status: Never smoker Smoking Status: Never smoker alcohol intake frequency: holidays/special occasions only Substance Use Type: does not use Exam Narrative Exam Narrative: General: Healthy appearing, in no mild distress distress. Mild cognitive clouding but Able to give a complete and coherent history. Well- nourished well-developed HEENT: Moist mucous membranes, normal sclera with reactive pupils, Respiratory: Lungs are clear to auscultation, no wheezing no rales no rhonchi. Full and symmetrical air movement Cardiac: Regular rate and rhythm, 2/6 murmur, no bruits Abdomen: Soft nontender good bowel tones, no flank pain Skin: Warm and dry, no rashes Neurologic: Grossly neurologically intact with no obvious asymmetries or abnormalities, Spine: Nicely healed lumbar spine scar with no erythema, fluctuance or tenderness to palpation Extremities: No trauma, well perfused Psych: Cooperative, mild confusion when temperature is a 102? and clears completely when she is afebrile Initial Vital Signs Initial Vital Signs: Vital Signs Temperature 102 F H 09/04/20 20:55 Pulse Rate 117 H 09/04/20 20:55 Respiratory Rate 20 09/04/20 20:55 Blood Pressure 121/73 09/04/20 20:55 Pulse Oximetry 97 09/04/20 20:55 Course Orders Ordered: ED Orders 09/04/20 21:10 Complete Blood Count AUTO DIFF Stat Comprehensive Metabolic Panel Stat Lactate (Lactic Acid) Stat Procalcitonin Stat 09/04/20 21:24 EKG-12 Lead Routine 09/04/20 21:25 Blood Culture Stat 09/04/20 21:30 COVID19 Stat 09/04/20 22:00 Urinalysis and Microscopic Stat Discontinued Medications Acetaminophen (Tylenol) 975 mg PO NOW ONE Stop: 09/04/20 21:03 Last Admin: 09/04/20 21:50 Dose: Not Given Documented by: SHAVON Acetaminophen (Tylenol) 975 mg PO NOW ONE Stop: 09/05/20 04:07 Last Admin: 09/05/20 04:09 Dose: 975 mg Documented by: SHAVON Sodium Chloride (Normal Saline 0.9%) 1,000 mls @ 1,000 mls/hr IV BOLUS ONE Stop: 09/04/20 22:01 Last Infusion: 09/04/20 22:45 Dose: 0 mls/hr Documented by: Admin: 09/04/20 21:42 Dose: 1,000 mls/hr Documented by: SHAVON Levofloxacin (Levaquin) 750 mg in 150 mls @ 100 mls/hr IV NOW ONE Stop: 09/05/20 02:44 Last Infusion: 09/05/20 02:55 Dose: 0 mls/hr Documented by: Admin: 09/05/20 01:21 Dose: 100 mls/hr Documented by: SHAVON Vancomycin HCl/Dextrose (Vancomycin) 1,500 mg in 300 mls @ 200 mls/hr IV NOW ONE Stop: 09/05/20 02:44 Last Infusion: 09/05/20 03:53 Dose: 0 mls/hr Documented by: Admin: 09/05/20 02:07 Dose: 200 mls/hr Documented by: SHAVON Vital Signs Vital signs: Vital Signs - 8 hr 09/05/20 01:05 09/05/20 01:30 09/05/20 02:00 Temperature Pulse Rate 97 H 89 98 H Respiratory Rate 16 Blood Pressure 120/69 Pulse Oximetry 100 100 99 09/05/20 02:30 09/05/20 03:00 09/05/20 03:30 Temperature Pulse Rate 91 H 90 97 H Respiratory Rate Blood Pressure Pulse Oximetry 100 98 99 09/05/20 04:15 Temperature 99.7 F H Pulse Rate 102 H Respiratory Rate 16 Blood Pressure 122/74 Pulse Oximetry 97 MDM - Fever Medical Records Attestation: I reviewed the patient's medical records. Lab Data Attestation: I reviewed the patient's lab results. Result diagrams: 09/04/20 21:10 09/04/20 21:10 Labs: Lab Results 09/04/20 09/04/20 09/04/20 Range/Units 21:10 21:10 21:10 WBC 12.2 H (4.5-11.0) X10^3/uL RBC 3.86 L (4.0-5.2) X10^6/uL Hgb 10.6 L (12.0-16.0) g/dL Hct 31.9 L (36-46) % MCV 82.7 (80-100) fL MCH 27.5 (26-34) PG MCHC 33.3 (30-36) % RDW 16.9 H (11.6-14.8) % Plt Count 314 (150-400) X10^3/uL Neut % (Auto) 84.6 H (50-75) % Lymph % (Auto) 6.7 L (25-40) % [place] % (Auto) 8.1 (3-14) % Eos % (Auto) 0.1 L (2-4) % Baso % (Auto) 0.5 (0-2) % Neut # (Auto) 47846 H (3157-8875) /uL Lymph # (Auto) 800 L (5122-5225) /uL [place] # (Auto) 1000 H (0-900) /uL Eos # (Auto) 0 (0-450) /uL Baso # (Auto) 100 (0-100) /uL Sodium 127 L (137-145) mmol/L Potassium 3.9 (3.4-5.1) mmol/L Chloride 95 L (98-107) mmol/L Carbon Dioxide 25 (22-32) mmol/L BUN 10 (7-17) mg/dL Creatinine 0.75 (0.52-1.04) mg/dL Estimated GFR > 60.0 (>60) mL/min BUN/Creatinine Ratio 13.3 (6-22) Glucose 126 H (80-110) mg/dL Lactate (0.7-2.1) mmol/L Calcium 8.5 (8.4-10.2) mg/dL Total Bilirubin 0.5 (0.2-1.3) mg/dL AST 160 H (14-36) IU/L ALT 126 H (<35) IU/L Alkaline Phosphatase 140 H (38-126) U/L Total Protein 8.1 (6.3-8.2) g/dL Albumin 4.1 (3.5-5.0) g/dL Globulin 4.0 (1.7-4.1) g/dL Albumin/Globulin Ratio 1.0 (1.0-2.8) Procalcitonin < 0.05 (<0.5) ng/mL Urine Color Urine Appearance Urine pH (4.5-8.0) Ur Specific [place] (1.000-1.035) Urine Protein (Negative) Urine Glucose (UA) (Negative) g/dL Urine Ketones (NEGATIVE) Urine Occult Blood (Negative) Urine Nitrate (Negative) Urine Bilirubin (NEGATIVE) Urine Urobilinogen (0.2) E.U./dL Ur Leukocyte Esterase (NEGATIVE) Urine RBC (0-5/HPF) Urine WBC (0-5/HPF) Ur Squamous Epith Cells (0-5/HPF) Urine Bacteria (None) Ur Culture Indicated? COVID-19 PCR (Negative) 09/04/20 09/04/20 09/04/20 Range/Units 21:10 21:30 22:00 WBC (4.5-11.0) X10^3/uL RBC (4.0-5.2) X10^6/uL Hgb (12.0-16.0) g/dL Hct (36-46) % MCV (80-100) fL MCH (26-34) PG MCHC (30-36) % RDW (11.6-14.8) % Plt Count (150-400) X10^3/uL Neut % (Auto) (50-75) % Lymph % (Auto) (25-40) % [place] % (Auto) (3-14) % Eos % (Auto) (2-4) % Baso % (Auto) (0-2) % Neut # (Auto) (5433-5704) /uL Lymph # (Auto) (2080-1821) /uL [place] # (Auto) (0-900) /uL Eos # (Auto) (0-450) /uL Baso # (Auto) (0-100) /uL Sodium (137-145) mmol/L Potassium (3.4-5.1) mmol/L Chloride (98-107) mmol/L Carbon Dioxide (22-32) mmol/L BUN (7-17) mg/dL Creatinine (0.52-1.04) mg/dL Estimated GFR (>60) mL/min BUN/Creatinine Ratio (6-22) Glucose (80-110) mg/dL Lactate 1.2 (0.7-2.1) mmol/L Calcium (8.4-10.2) mg/dL Total Bilirubin (0.2-1.3) mg/dL AST (14-36) IU/L ALT (<35) IU/L Alkaline Phosphatase (38-126) U/L Total Protein (6.3-8.2) g/dL Albumin (3.5-5.0) g/dL Globulin (1.7-4.1) g/dL Albumin/Globulin Ratio (1.0-2.8) Procalcitonin (<0.5) ng/mL Urine Color Yellow Urine Appearance Clear Urine pH 6.5 (4.5-8.0) Ur Specific [place] <=1.005 (1.000-1.035) Urine Protein Trace H (Negative) Urine Glucose (UA) Negative (Negative) g/dL Urine Ketones Negative (NEGATIVE) Urine Occult Blood 1+ H (Negative) Urine Nitrate Negative (Negative) Urine Bilirubin Negative (NEGATIVE) Urine Urobilinogen 0.2 (0.2) E.U./dL Ur Leukocyte Esterase Negative (NEGATIVE) Urine RBC 1-5/hpf (0-5/HPF) Urine WBC 0-1/hpf (0-5/HPF) Ur Squamous Epith Cells 5-10 /hpf H (0-5/HPF) Urine Bacteria Few (2-10) H (None) Ur Culture Indicated? Cult not indicated COVID-19 PCR Negative (Negative) ECG Data Attestation: I personally reviewed and interpreted this ECG as follows: Interpretation: Sinus rhythm, mild tachycardia at 1:11 a.m. Normal intervals, normal axis Nonspecific ST T wave changes without acute ischemia MDM Narrative Medical decision making narrative: 65-year-old woman with a complicated epidural abscess with subsequent osteomyelitis over the last 6 months with majority of her care being at [facility]. She is now again off antibiotics for 5 days with recurrent fevers. Slightly elevated white count, hyponatremia, mildly elevated transaminases without evidence of acute neurologic impingement or symptoms of epidural abscess as she has had previously. Clearly needs MRI repeated. Blood cultures were obtained. Antibiotics in the form of Levaquin and vancomycin both of which have been affected for the MRSA identified previously. Her review is contacted and patient will be transferred back down for MRI, id consult and anticipated admission to the medicine service for treatment of presumed recurrent osteomyelitis of the spine as well as hyponatremia and mild transaminitis. She is safe for transfer via BLS to [facility] Discharge Plan Departure Patient Disposition: [facility] Clinical Impression: Osteomyelitis of lumbar spine, Febrile illness Discharge Date/Time: 09/05/20 04:17 Prescriptions: No Action bupropion HCl [Wellbutrin SR] 150 MG tablet extended release 12 hr 150 mg PO QDAY Qty: 0 RF: 0 citalopram 20 MG tablet 20 mg PO QDAY Qty: 0 RF: 0 anastrozole 1 MG tablet 1 mg PO QDAY Qty: 0 RF: 0 levofloxacin 750 mg tablet 750 mg PO DAILY RF: 0 methocarbamol 500 mg tablet 500 mg PO BEDTIME RF: 0 gabapentin 600 mg tablet 600 mg PO DAILY RF: 0 acetaminophen [Tylenol Extra Strength] 500 mg tablet 1,000 mg PO .q8 PRNRF: 0 acyclovir 400 mg Tablet 400 mg PO DAILY Qty: 30 RF: 0 Referrals: Ari Magallanes MD [Primary Care Provider] -
[2020-09-04 21:21] LABS: Add Manual Diff / Slide Review NO; Basophils Absolute Auto 100 /uL (0-100); Basophils Percent Auto 0.5 % (0-2); Eosinophils Absolute Auto 0 /uL (0-450); Eosinophils Percent Auto 0.1 % (2-4); Hematocrit 31.9 % (36-46); Hemoglobin 10.6 g/dL (12.0-16.0); Lymphocytes Absolute Auto 800 /uL (1100-4500); Lymphocytes Percent Auto 6.7 % (25-40); Mean Corpuscular HGB Conc 33.3 % (30-36); Mean Corpuscular Hemoglobin 27.5 PG (26-34); Mean Corpuscular Volume 82.7 fL (80-100); Monocytes Absolute Auto 1000 /uL (0-900); Monocytes Percent Auto 8.1 % (3-14); Neutrophils Absolute Auto 10300 /uL (1500-7000); Neutrophils Percent Auto 84.6 % (50-75); Platelet Count 314 X10^3/uL (150-400); Red Blood Cell Count 3.86 X10^6/uL (4.0-5.2); Red Cell Distribution Width 16.9 % (11.6-14.8); White Blood Cell Count 12.2 X10^3/uL (4.5-11.0)
[2020-09-04 21:38] LABS: Lactate (Lactic Acid) 1.2 mmol/L (0.7-2.1)
[2020-09-04 21:40] LABS: Alanine Aminotransferase 126 IU/L (<35); Albumin 4.1 g/dL (3.5-5.0); Alkaline Phosphatase 140 U/L (38-126); Aspartate Aminotransferase 160 IU/L (14-36); BUN Creatinine Ratio 13.3 (6-22); Bilirubin Total 0.5 mg/dL (0.2-1.3); Blood Urea Nitrogen 10 mg/dL (7-17); Calcium 8.5 mg/dL (8.4-10.2); Carbon Dioxide 25 mmol/L (22-32); Chloride 95 mmol/L (98-107); Estimated Glomerular Filt Rate > 60.0 mL/min (>60); Glucose 126 mg/dL (80-110); HEMOLYSIS < 15 (0-50); Potassium 3.9 mmol/L (3.4-5.1); Sodium 127 mmol/L (137-145); Total Protein 8.1 g/dL (6.3-8.2)
[2020-09-04] MEDS: ACETAMINOPHEN 325 MG TABLET 975 MG PO (21:42)
[2020-09-04] MEDS: SODIUM CHLORIDE 0.9% 1,000 ML 1000 ML IV (21:42)
[2020-09-04 21:56] LABS: COVID19 -Nasal RAPID Negative (Negative)
[2020-09-04 21:56] LABS: Procalcitonin < 0.05 ng/mL (<0.5)
[2020-09-04 22:14] LABS: Appearance Urine UA CLEAR; Bilirubin Urine UA NEGATIVE (NEGATIVE); Color Urine UA YELLOW; Glucose Urine UA NEGATIVE (Negative); Ketones Urine UA NEGATIVE (NEGATIVE); Leukocyte Esterase Urine UA NEGATIVE (NEGATIVE); Nitrite Urine UA NEGATIVE (Negative); Occult Blood Urine UA 1+ (Negative); Protein Urine UA TRACE (Negative); Specific Gravity Urine UA <=1.005 (1.000-1.035); Urobilinogen Urine UA 0.2 E.U./dL (0.2)
[2020-09-04 22:22] LABS: RBC Urine 1-5/HPF (0-5/HPF); WBC Urine 0-1/HPF (0-5/HPF); pH Urine UA 6.5 (4.5-8.0)
[2020-09-04 22:23] LABS: Bacteria Urine Few (2-10); Culture Indicated Urine Cult Not Indicated; Squamous Epithelial Cell Urine 5-10 /HPF (0-5/HPF)
[2020-09-05] VITALS (7 sets, daily range): BP systolic 120–122; BP diastolic 69–74; PULSE 89–102; RESP 16; TEMP 37.6; O2SAT 97–100
[2020-09-05] MEDS: levoFLOXacin 750 MG/150 ML PIGGYBACK 100 MG IV (01:21)
[2020-09-05] MEDS: VANCOMYCIN 1,500 MG/300 ML PIGGYBACK 200 MG IV (02:07)
[2020-09-05] MEDS: ACETAMINOPHEN 325 MG TABLET 975 MG PO (04:09)
== END 2020-09-05 04:17 | disposition short-term general hospital (02) ==
PROVIDERS: Emergency Provider Emergency Medicine; Family Provider Family Medicine; PCP Family Medicine
DX: M46.26 Osteomyelitis of vertebra, lumbar region (principal); R50.9 Fever, unspecified; R00.0 Tachycardia, unspecified; G06.2 Extradural and subdural abscess, unspecified
CPT/HCPCS: 36415; 80053; 81001; 83605; 84145; 85025; 85651; 86140; 87040; 87635; 93005; 96361; 96365; 96366; 96367; 99284; J1956

== ENCOUNTER → 2020-10-07 10:13 | Outpatient (ROUT) | payer OTHER, SELFPAY ==
[2020-08-05 15:10] VITALS: BMI 24.0
[2020-10-07 10:21] LABS: Add Manual Diff / Slide Review NO; Basophils Absolute Auto 0 /uL (0-100); Basophils Percent Auto 0.9 % (0-2); Eosinophils Absolute Auto 100 /uL (0-450); Eosinophils Percent Auto 3.3 % (2-4); Hematocrit 31.1 % (36-46); Hemoglobin 10.2 g/dL (12.0-16.0); Lymphocytes Absolute Auto 900 /uL (1100-4500); Lymphocytes Percent Auto 25.6 % (25-40); Mean Corpuscular HGB Conc 32.7 % (30-36); Mean Corpuscular Hemoglobin 26.8 PG (26-34); Monocytes Absolute Auto 600 /uL (0-900); Monocytes Percent Auto 16.6 % (3-14); Neutrophils Absolute Auto 1900 /uL (1500-7000); Neutrophils Percent Auto 53.6 % (50-75); Platelet Count 250 X10^3/uL (150-400); Red Blood Cell Count 3.79 X10^6/uL (4.0-5.2); Red Cell Distribution Width 16.2 % (11.6-14.8); White Blood Cell Count 3.5 X10^3/uL (4.5-11.0)
[2020-10-07 10:33] LABS: Alanine Aminotransferase 21 IU/L (<35); Albumin 3.9 g/dL (3.5-5.0); Albumin Globulin Ratio 1.1 (1.0-2.8); Alkaline Phosphatase 141 U/L (38-126); Aspartate Aminotransferase 27 IU/L (14-36); BUN Creatinine Ratio 27.4 (6-22); Bilirubin Total 0.3 mg/dL (0.2-1.3); Blood Urea Nitrogen 17 mg/dL (7-17); Calcium 9.2 mg/dL (8.4-10.2); Carbon Dioxide 27 mmol/L (22-32); Chloride 102 mmol/L (98-107); Estimated Glomerular Filt Rate > 60.0 mL/min (>60); Globulin 3.5 g/dL (1.7-4.1); Glucose 102 mg/dL (80-110); HEMOLYSIS < 15 (0-50); Potassium 4.3 mmol/L (3.4-5.1); Sodium 135 mmol/L (137-145); Total Protein 7.4 g/dL (6.3-8.2)
== END ==
PROVIDERS: Family Provider Family Medicine; PCP Family Medicine; Visit Provider Internal Medicine Infectious Disease
DX: M86.9 Osteomyelitis, unspecified (principal)
CPT/HCPCS: 80053; 80202; 85025

== ENCOUNTER → 2020-10-14 09:55 | Outpatient (ROUT) | payer OTHER, SELFPAY ==
[2020-08-05 15:10] VITALS: BMI 24.0
[2020-10-14 10:04] LABS: Add Manual Diff / Slide Review NO; Basophils Absolute Auto 0 /uL (0-100); Basophils Percent Auto 1.1 % (0-2); Eosinophils Absolute Auto 100 /uL (0-450); Eosinophils Percent Auto 3.3 % (2-4); Hematocrit 31.2 % (36-46); Hemoglobin 10.3 g/dL (12.0-16.0); Lymphocytes Absolute Auto 800 /uL (1100-4500); Lymphocytes Percent Auto 27.2 % (25-40); Mean Corpuscular Hemoglobin 26.8 PG (26-34); Mean Corpuscular Volume 81.5 fL (80-100); Monocytes Absolute Auto 500 /uL (0-900); Monocytes Percent Auto 15.5 % (3-14); Neutrophils Absolute Auto 1700 /uL (1500-7000); Neutrophils Percent Auto 52.9 % (50-75); Platelet Count 268 X10^3/uL (150-400); Red Blood Cell Count 3.83 X10^6/uL (4.0-5.2); Red Cell Distribution Width 16.5 % (11.6-14.8); White Blood Cell Count 3.1 X10^3/uL (4.5-11.0)
[2020-10-14 10:18] LABS: Alanine Aminotransferase 16 IU/L (<35); Albumin 3.8 g/dL (3.5-5.0); Albumin Globulin Ratio 1.1 (1.0-2.8); Alkaline Phosphatase 107 U/L (38-126); Aspartate Aminotransferase 27 IU/L (14-36); BUN Creatinine Ratio 25.4 (6-22); Bilirubin Total 0.3 mg/dL (0.2-1.3); Blood Urea Nitrogen 15 mg/dL (7-17); Calcium 9.3 mg/dL (8.4-10.2); Carbon Dioxide 27 mmol/L (22-32); Chloride 105 mmol/L (98-107); Estimated Glomerular Filt Rate > 60.0 mL/min (>60); Globulin 3.6 g/dL (1.7-4.1); Glucose 89 mg/dL (80-110); HEMOLYSIS < 15 (0-50); Potassium 4.1 mmol/L (3.4-5.1); Sodium 138 mmol/L (137-145); Total Protein 7.4 g/dL (6.3-8.2)
[2020-10-14 10:22] LABS: Vancomycin Trough 12.1 ug/mL (10-20)
== END ==
PROVIDERS: Family Provider Family Medicine; PCP Family Medicine; Visit Provider Internal Medicine Infectious Disease
DX: M86.9 Osteomyelitis, unspecified (principal)
CPT/HCPCS: 80053; 80202; 85025

== ENCOUNTER → 2020-10-25 09:42 | Outpatient (ROUT) | payer OTHER, SELFPAY ==
[2020-08-05 15:10] VITALS: BMI 24.0
[2020-10-25 10:03] LABS: BUN Creatinine Ratio 24.2 (6-22); Blood Urea Nitrogen 15 mg/dL (7-17); Estimated Glomerular Filt Rate > 60.0 mL/min (>60)
[2020-10-25 10:08] LABS: Vancomycin Trough 14.2 ug/mL (10-20)
== END ==
PROVIDERS: Family Provider Family Medicine; PCP Family Medicine; Visit Provider Physician Assistant Medical
DX: M86.9 Osteomyelitis, unspecified (principal)
CPT/HCPCS: 80202; 82565; 84520

== ENCOUNTER → 2020-10-28 09:23 | Outpatient (ROUT) | payer OTHER, SELFPAY ==
[2020-08-05 15:10] VITALS: BMI 24.0
[2020-10-28 09:37] LABS: Add Manual Diff / Slide Review NO; Basophils Absolute Auto 0 /uL (0-100); Basophils Percent Auto 0.7 % (0-2); Eosinophils Absolute Auto 100 /uL (0-450); Eosinophils Percent Auto 2.7 % (2-4); Hemoglobin 10.8 g/dL (12.0-16.0); Lymphocytes Absolute Auto 1000 /uL (1100-4500); Mean Corpuscular HGB Conc 32.6 % (30-36); Mean Corpuscular Hemoglobin 26.2 PG (26-34); Mean Corpuscular Volume 80.2 fL (80-100); Monocytes Absolute Auto 600 /uL (0-900); Monocytes Percent Auto 14.8 % (3-14); Neutrophils Absolute Auto 2100 /uL (1500-7000); Neutrophils Percent Auto 55.8 % (50-75); Platelet Count 257 X10^3/uL (150-400); Red Blood Cell Count 4.11 X10^6/uL (4.0-5.2); Red Cell Distribution Width 15.9 % (11.6-14.8); White Blood Cell Count 3.9 X10^3/uL (4.5-11.0)
[2020-10-28 09:48] LABS: Alanine Aminotransferase 19 IU/L (<35); Albumin Globulin Ratio 1.2 (1.0-2.8); Alkaline Phosphatase 82 U/L (38-126); Aspartate Aminotransferase 29 IU/L (14-36); BUN Creatinine Ratio 23.2 (6-22); Bilirubin Total 0.2 mg/dL (0.2-1.3); Blood Urea Nitrogen 13 mg/dL (7-17); Carbon Dioxide 26 mmol/L (22-32); Chloride 105 mmol/L (98-107); Estimated Glomerular Filt Rate > 60.0 mL/min (>60); Globulin 3.4 g/dL (1.7-4.1); Glucose 117 mg/dL (80-110); HEMOLYSIS 18 (0-50); Potassium 3.9 mmol/L (3.4-5.1); Sodium 137 mmol/L (137-145); Total Protein 7.4 g/dL (6.3-8.2)
[2020-10-28 10:09] LABS: Vancomycin Trough 14.1 ug/mL (10-20)
== END ==
PROVIDERS: Family Provider Family Medicine; PCP Family Medicine; Visit Provider Internal Medicine Infectious Disease
DX: M86.9 Osteomyelitis, unspecified (principal)
CPT/HCPCS: 80053; 80202; 85025

== ENCOUNTER → 2020-11-05 10:54 | Outpatient (ROUT) | payer OTHER, SELFPAY ==
[2020-08-05 15:10] VITALS: BMI 24.0
[2020-11-05 11:03] LABS: Add Manual Diff / Slide Review NO; Basophils Absolute Auto 0 /uL (0-100); Basophils Percent Auto 0.9 % (0-2); Eosinophils Absolute Auto 100 /uL (0-450); Hematocrit 33.1 % (36-46); Hemoglobin 10.7 g/dL (12.0-16.0); Lymphocytes Absolute Auto 900 /uL (1100-4500); Lymphocytes Percent Auto 31.1 % (25-40); Mean Corpuscular HGB Conc 32.2 % (30-36); Mean Corpuscular Hemoglobin 25.6 PG (26-34); Mean Corpuscular Volume 79.6 fL (80-100); Monocytes Absolute Auto 500 /uL (0-900); Monocytes Percent Auto 16.8 % (3-14); Neutrophils Absolute Auto 1400 /uL (1500-7000); Neutrophils Percent Auto 48.2 % (50-75); Platelet Count 270 X10^3/uL (150-400); Red Blood Cell Count 4.16 X10^6/uL (4.0-5.2); Red Cell Distribution Width 16.7 % (11.6-14.8); White Blood Cell Count 2.9 X10^3/uL (4.5-11.0)
[2020-11-05 11:09] LABS: Alanine Aminotransferase 17 IU/L (<35); Albumin 4.1 g/dL (3.5-5.0); Albumin Globulin Ratio 1.2 (1.0-2.8); Alkaline Phosphatase 78 U/L (38-126); Aspartate Aminotransferase 28 IU/L (14-36); BUN Creatinine Ratio 23.7 (6-22); Bilirubin Total 0.3 mg/dL (0.2-1.3); Blood Urea Nitrogen 14 mg/dL (7-17); Calcium 9.1 mg/dL (8.4-10.2); Carbon Dioxide 27 mmol/L (22-32); Chloride 105 mmol/L (98-107); Estimated Glomerular Filt Rate > 60.0 mL/min (>60); Globulin 3.3 g/dL (1.7-4.1); Glucose 80 mg/dL (80-110); HEMOLYSIS < 15 (0-50); Potassium 4.2 mmol/L (3.4-5.1); Sodium 138 mmol/L (137-145); Total Protein 7.4 g/dL (6.3-8.2)
[2020-11-05 11:13] LABS: Vancomycin Trough 14.2 ug/mL (10-20)
== END ==
PROVIDERS: Family Provider Family Medicine; PCP Family Medicine; Visit Provider Family Medicine
DX: M86.9 Osteomyelitis, unspecified (principal)
CPT/HCPCS: 80053; 80202; 85025

== ENCOUNTER → 2021-02-11 07:25 | Outpatient (CLI) | payer MEDICARE, OTHER, SELFPAY ==
[2020-08-05 15:10] VITALS: BMI 24.0
--- NOTE | 2021-02-11 | DI.MRI.S_ITS ---
PROCEDURE: MR LUMBAR SPINE WO/W CON INDICATIONS: Extradural and subdural abscess, unspecified TECHNIQUE: Noncontrast sagittal T1 spin echo and T2 fast spin echo, sagittal STIR, axial T1 and T2 fast spin echo through the lumbar spine. In cases with scoliosis, additional coronal T2 fast spin echo may be performed. After the administration of contrast, sagittal and axial T1 spin echo with fat saturation through the lumbar spine. COMPARISON: [facility], MR, MR LUMBAR SPINE WO CON, 02/17/2020, 9:01. [facility], CT, CT LUMBAR SPINE WO CON, 05/26/2020, 7:04. [facility], MR, MR LUMBAR SPINE WO/W CON, 03/25/2020, 8:11. FINDINGS: There has been interval decompressive laminectomy at L2, and essentially resolution of previously described ventral epidural abscesses. There is persistent edema and enhancement in the L1, L2 and L3 vertebral bodies and associated L1-2/L2-3 disc spaces, consistent with persistent a discitis osteomyelitis. Persistent enhancement of the adjacent psoas muscles as well as prevertebral soft tissue thickening measuring up to 1.1 cm in thickness reflects a persistent myositis and cellulitis. No evidence of perivertebral abscess. At L2-3, there has been erosion of the associated endplates with collapse of the L2 vertebral body, resulting in a 75 percent anterior height loss and retrolisthesis of L2 over L3 by up to 6 mm. Erosion of the L1-2 endplates noted as well without significant height loss of the L1 vertebral body. There is a persistent cystic structure in the right half of the L1 vertebral body with peripheral trabecular thickening, stable from the prior exam. At T12-L1, there is mild disc height loss with circumferential disc bulge resulting in mild central and no foraminal stenosis. At L1-2, there is discitis/osteomyelitis as above. No central stenosis. Moderate bilateral foraminal stenosis noted. At L2-3, there is discitis/osteomyelitis as above. Decompressive laminectomy noted without central stenosis. 6 mm retrolisthesis noted. There is severe right and left foraminal stenosis present. At L3-4, L4-5 and L5-S1, no central stenosis, mild bilateral foraminal stenosis present. Partial sacralization of the L5 vertebral body noted. IMPRESSION: 1. Resolution of previously described ventral epidural abscesses. 2. Persistent discitis osteomyelitis at L1, L2 and L3 with collapse of the L2 vertebral body resulting in 75 percent height loss and retrolisthesis at L2-3. No significant central stenosis, but severe bilateral foraminal stenosis noted. 3. Improving perivertebral myositis/cellulitis 4. Incidental stable L1 vertebral body cystic structure reflecting hemangioma or bone cyst involving approximately 60 percent of the vertebral body. Dictated by: Jasper Badillo M.D. on 02/11/2021 at 8:47 Approved by: Jasper Badillo M.D. on 02/11/2021 at 9:28
== END ==
PROVIDERS: Family Provider Family Medicine; PCP Family Medicine; Referring Provider Family Medicine; Visit Provider Family Medicine
DX: M46.46 Discitis, unspecified, lumbar region; G06.2 Extradural and subdural abscess, unspecified; M46.26 Osteomyelitis of vertebra, lumbar region; M48.061 Spinal stenosis, lumbar region without neurogenic claudication
CPT/HCPCS: 72158

== ENCOUNTER → 2024-02-19 10:43 | Outpatient (CLI) | payer MEDICARE, OTHER, SELFPAY ==
[2020-08-05 15:10] VITALS: BMI 24.0
--- NOTE | 2024-02-19 10:46 | DI.MRI.S_ITS ---
PROCEDURE: MR LUMBAR SPINE WO CON INDICATIONS: RIGHT LEG PAIN TECHNIQUE: Noncontrast sagittal T1 spin echo and T2 fast echo, sagittal STIR, and T2 fast spin echo through the lumbar spine. In cases with scoliosis, additional coronal T2 fast spin echo may be performed. COMPARISON: [facility], MR, MR LUMBAR SPINE WO/W CON, 02/11/2021, 7:45[facility], MR, MR LUMBAR SPINE WO CON, 02/17/2020, 9:01. FINDINGS: Numbering convention of the lumbar spine is based on the MRI dated March 25, 2020. When compared with the MRI dated February 11, 2021, there has been progressive collapse of the L2 vertebral body. The disc interspaces between L1-2 and L2-3 are now completely obscured. As before, focal kyphosis is present from L1-L3 centered at L2. An expansile, lytic lesion is present throughout the L1 vertebral body which extends into the canal and results in severe canal stenosis. There is no compression deformity of the cauda equina. T12-L1: Mild disc desiccation and height loss. Broad-based disc bulge. Mild facet ligamentum flavum hypertrophy. No canal stenosis. No foraminal stenosis. L1-L2: Expansile lytic lesion throughout the L1 and L2 vertebral bodies with destruction of the disc interspace and collapse of the L2 vertebral body. Findings of increased in severity when compared with the study dated February 11, 2021. No canal stenosis. The expansile lesion extends into the right neural foramina with severe resultant foraminal stenosis and posterior displacement of the exiting nerve root. L2-L3: Severe collapse of the L2 vertebral body, destruction of the L2-3 disc interspace, and retrolisthesis of L2 on L3. No canal stenosis. Moderate bilateral foraminal stenosis. L3-L4: Mild disc desiccation and height loss. Broad-based disc bulge. Severe facet and ligamentum flavum hypertrophy. No canal stenosis. Severe bilateral foraminal stenosis. L4-L5: Mild disc desiccation and height loss. Broad-based disc bulge. Severe facet ligamentum flavum hypertrophy. Moderate right foraminal stenosis. Mild left neural foraminal stenosis. L5-S1: Severe facet sclerosis. No canal stenosis. No foraminal stenosis. IMPRESSION: 1. Continued interval collapse of the L2 vertebral body when compared with the MRI dated February 11, 2021. 2. Expansile/lytic lesion within the L1 vertebral body with retropulsion into the thecal sac and the right L1-2 neural foramen. This results in severe right L1-2 foraminal narrowing. Differential considerations include osteomyelitis and plasmocytoma in the setting multiple myeloma. Contrast enhanced MRI of the lumbar spine is recommended to further characterize this finding. This finding was discussed with Dr. Davis at 1:01 p.m. on February 19, 2024. 3. Severe bilateral foraminal stenosis at L3-4, moderate right foraminal stenosis at L4-5. Dictated by: Evelyn Leavitt M.D. on 02/19/2024 at 12:48 Approved by: Evelyn Leavitt M.D. on 02/19/2024 at 13:10
== END ==
PROVIDERS: Family Provider Family Medicine; PCP Family Medicine; Referring Provider Family Medicine; Visit Provider Family Medicine
DX: C90.00 Multiple myeloma not having achieved remission (principal); M54.10 Radiculopathy, site unspecified; M48.061 Spinal stenosis, lumbar region without neurogenic claudication; M48.56XA Collapsed vertebra, not elsewhere classified, lumbar region, initial encounter for fracture; M89.9 Disorder of bone, unspecified
CPT/HCPCS: 72148

== ENCOUNTER → 2024-08-07 16:46 | Outpatient (ROUT) | payer MEDICARE, OTHER, SELFPAY ==
[2020-08-05 15:10] VITALS: BMI 24.0
[2024-08-07 18:18] LABS: COVID-19 CEPHEID PCR (VTM/NP) Negative (Negative)
== END ==
PROVIDERS: Family Provider Family Medicine; PCP Family Medicine; Visit Provider Family Medicine
DX: H92.09 Otalgia, unspecified ear (principal); J02.9 Acute pharyngitis, unspecified; R05.9 Cough, unspecified
CPT/HCPCS: 87635

== ENCOUNTER → 2024-11-06 09:28 | Outpatient (CLI) | payer MEDICARE, OTHER, SELFPAY ==
[2020-08-05 15:10] VITALS: BMI 24.0
--- NOTE | 2024-11-06 09:31 | DI.RAD.S_ITS ---
PROCEDURE: XR WRIST RT MIN 3V INDICATIONS: WRIST PAIN TECHNIQUE: 4 views of the wrist were acquired. COMPARISON: None. FINDINGS: Bones: Mild 1st STT and 1st CMC arthrosis. No grossly displaced fracture or dislocation. Minimally displaced possible bone fragment dorsal to the carpal row on lateral view Soft tissues: No suspicious calcifications IMPRESSION: There is a possible minimally displaced bone fragment dorsal to the carpal row on lateral view which may be a triquetral fracture. Correlate with location of symptoms. This is age-indeterminate. Mild thumb base degenerative changes. Dictated by: Rivera Donaldson M.D. on 11/06/2024 at 15:22 Approved by: Rivera Donaldson M.D. on 11/06/2024 at 15:23
== END ==
PROVIDERS: Family Provider Family Medicine; PCP Family Medicine; Referring Provider Family Medicine; Visit Provider Family Medicine
DX: M25.531 Pain in right wrist (principal)
CPT/HCPCS: 73110

== ENCOUNTER → 2024-11-26 10:56 | Outpatient (CLI) | payer MEDICARE, OTHER, SELFPAY ==
[2020-08-05 15:10] VITALS: BMI 24.0
--- NOTE | 2024-11-26 11:03 | DI.RAD.S_ITS ---
PROCEDURE: XR ELBOW RT 2V INDICATIONS: RIGHT FORARM PAIN TECHNIQUE: 3 views of the elbow were acquired. COMPARISON: None. FINDINGS: Bones: There are no osseous abnormalities. Elbow joint: Normal in width and alignment without arthritic change. There are no effusions. Soft tissues: No soft tissue swelling, calcification or mass. IMPRESSION: Normal elbow Dictated by: Kip Bazzi M.D. on 11/27/2024 at 11:07 Approved by: Kip Bazzi M.D. on 11/27/2024 at 11:07
--- NOTE | 2024-11-26 11:03 | DI.RAD.S_ITS ---
PROCEDURE: XR FOREARM RT 2V INDICATIONS: RIGHT FORARM PAIN TECHNIQUE: 2 views of the forearm were acquired. COMPARISON: None. FINDINGS: Bones: Tiny avulsion fracture of the dorsal lunate is suboptimally visualized. Joints: Mild degenerative changes STT and 1st CMC appreciated. Elbow joint is normal. Soft tissues: No soft tissue abnormality. IMPRESSION: Tiny avulsion fracture dorsal lunate. Dictated by: Kip Bazzi M.D. on 11/27/2024 at 11:09 Approved by: Kip Bazzi M.D. on 11/27/2024 at 11:11
== END ==
LOC: RAD 11:00
PROVIDERS: Family Provider Family Medicine; PCP Family Medicine; Referring Provider Family Medicine; Visit Provider Family Medicine
DX: M79.631 Pain in right forearm (principal); M25.521 Pain in right elbow
CPT/HCPCS: 73070; 73090

== ENCOUNTER → 2025-04-08 16:34 | Outpatient (CLI) | payer MEDICARE, OTHER, SELFPAY ==
[2020-08-05 15:10] VITALS: BMI 24.0
--- NOTE | 2025-04-08 16:37 | DI.RAD.S_ITS ---
PROCEDURE: XR LUMBAR SPINE MIN 4V INDICATIONS: RIGHT HIP PAIN TECHNIQUE: 5 views of the lumbar spine were acquired, including bilateral oblique views. COMPARISON: None. FINDINGS: Bones: 5 nonrib-bearing vertebrae are present. Osseous fusion of L1 through L3. There is partial sacralization of L5. Moderate T12-L1 and L4-L5 disc height loss with adjacent endplate sclerosis and anterior osteophytosis. There is normal bony alignment. No vertebral body compression fractures. No suspicious bony lesions. Soft tissues: Overlying bowel gas pattern is normal. No suspicious soft tissue calcifications. Right upper quadrant surgical clips are noted. Oblique images: No pars defects. IMPRESSION: Degenerative change including osseous fusion of L1 through L3 without evidence of acute bony abnormality. Dictated by: Yared Tamayo M.D. on 04/10/2025 at 1:56 Approved by: Yared Tamayo M.D. on 04/10/2025 at 1:58
== END ==
LOC: RAD 16:36
PROVIDERS: Family Provider Family Medicine; PCP Family Medicine; Referring Provider Family Medicine; Visit Provider Family Medicine
DX: M47.816 Spondylosis without myelopathy or radiculopathy, lumbar region (principal); M25.551 Pain in right hip; M43.26 Fusion of spine, lumbar region
CPT/HCPCS: 72110

== ENCOUNTER → 2025-04-20 09:00 | Outpatient (CLI) | payer MEDICARE, OTHER, SELFPAY ==
[2020-08-05 15:10] VITALS: BMI 24.0
--- NOTE | 2025-04-20 09:01 | DI.MRI.S_ITS ---
PROCEDURE: MR LUMBAR SPINE WO CON INDICATIONS: RIGHT SIDED RADICULOPATHY. History of multiple myeloma TECHNIQUE: Noncontrast sagittal T1 spin echo and T2 fast echo, sagittal STIR, and T2 fast spin echo through the lumbar spine. In cases with scoliosis, additional coronal T2 fast spin echo may be performed. COMPARISON: [facility], , MR LUMBAR SPINE WO CON, 02/19/2024, 10:53. [facility], [place], [place] PET CT FUSION WHOLE BODY, 09/11/2024, 11:14. FINDINGS: Alignment and Curvature: There is normal bony alignment. Bone Marrow: Significant improvement in metastatic marrow replacement particularly involving L1. Previously described lesion now cystic, and no epidural involvement present. L1-L2 as well as L2-L3 interbody ankylosis. L2-3 decompressive laminectomy No instrumentation. Spinal Cord: Conus medullaris terminates at the L1 level. Visualized cord demonstrates normal signal and size. Paraspinous Soft Tissues: No paravertebral masses. T12-L1: No significant central or foraminal stenosis. L1-L2: Interbody ankylosis with stable L2 compression fracture and height loss. No central stenosis. No foraminal stenosis L2-L3: Interbody ankylosis present with posterior decompression. No central stenosis. Facet arthropathy associated with moderate bilateral foraminal stenosis. L3-L4: Disc bulge and arthropathy. Moderate central stenosis. No foraminal stenosis L4-L5: Arthropathy. No central or foraminal stenosis. L5-S1: No central or foraminal stenosis. Incidental right sacral perineural cyst results in foraminal remodeling. IMPRESSION: Positive response to treatment. L1 lytic lesion shows decreasing size and resolution of epidural soft tissue. Interval L2-L3 decompressive laminectomy without instrumentation. Degenerative disc disease and arthropathy results in moderate bilateral foraminal stenosis at L2-3 and moderate central stenosis at L3-4 Approved by: Jasper Badillo M.D. on 04/21/2025 at 17:14
== END ==
PROVIDERS: Family Provider Family Medicine; PCP Family Medicine; Referring Provider Family Medicine; Visit Provider Family Medicine
DX: M47.26 Other spondylosis with radiculopathy, lumbar region (principal); M51.16 Intervertebral disc disorders with radiculopathy, lumbar region; M48.061 Spinal stenosis, lumbar region without neurogenic claudication; G96.191 Perineural cyst; M25.551 Pain in right hip
CPT/HCPCS: 72148